=== PATIENT | female | born 1990 | race Caucasian/White ===

== ENCOUNTER 2018-03-14 18:58 | Emergency (ER) | payer OTHER, MEDICAID, SELFPAY ==
[2018-03-14 19:02] VITALS: BP 125/78; PULSE 77; RESP 16; TEMP 36.2; O2SAT 98
[2018-03-14 19:32] VITALS: BP 150/107; PULSE 77; RESP 17; O2SAT 100
--- NOTE | 2018-03-14 19:49 | DI.RAD.S_ITS ---
PROCEDURE: XR TIBIA FIBULA RT 2V INDICATIONS: Pain to left lower extremity after colliding with dog TECHNIQUE: 2 views of the tibia and fibula were acquired. COMPARISON: None. FINDINGS: Bones: No fractures or dislocations. No suspicious bony lesions. Soft tissues: No suspicious soft tissue calcifications or masses. IMPRESSION: No fracture identified Dictated by: Seng Khan M.D. on 03/14/2018 at 20:49 Approved by: Seng Khan M.D. on 03/14/2018 at 20:50
--- NOTE | 2018-03-14 20:18 | ED.LOWEXIN ---
HPI - Extremity Injury (Lower) <YOLY Austin - Last Filed: 03/14/18 22:22> General Chief Complaint: Extremity Injury, Lower Stated Complaint: LEFT LEG INJURY Time Seen by Provider: 03/14/18 19:14 Source: patient Mode of arrival: ambulatory Limitations: no limitations History of Present Illness HPI Narrative: 27-year-old female history of hypothyroidism and is a non smoker here for complaint of pain into her left calf and left lateral tib-fib area after a dog collided into her leg earlier today. She states that she was taking care of her brother's dog when she let him outside and he rash doubt hitting her in the leg. She denies any head injury. She denies any loss of consciousness. Increased pain with ambulation and weight-bearing. No swelling no deformities. No other concerns or complaints. Related Data Previous Rx's Medication Instructions Recorded kwmazrtpkr-coufxrrnontzp-ojew 0 tab PO Q4HP PRN #20 tab 06/24/17 Allergies Allergy/AdvReac Type Severity Reaction Status Date / Time No Known Drug Allergies Allergy Verified 03/14/18 19:02 Review of Systems <YOLY Austin - Last Filed: 03/14/18 22:22> Constitutional Denies chills, Denies fever(s), Denies lethargy and Denies weakness Eyes Denies change in vision, Denies eye discharge, Denies irritation and Denies loss of vision ENT Ears, Nose, Mouth, and Throat: Denies change in voice, Denies neck pain and Denies sore throat Cardiovascular Denies chest pain, Denies irregular heart rhythm, Denies lightheadedness, Denies palpitations, Denies dyspnea, Denies dyspnea on exertion and Denies orthopnea Respiratory Denies cough, Denies dyspnea, Denies dyspnea on exertion and Denies wheezing Gastrointestinal Gastrointestinal: Denies abdominal pain, Denies change in bowel habits, Denies diarrhea, Denies nausea and Denies vomiting Genitourinary Denies hematuria, Denies flank pain, Denies urinary incontinence and Denies urinary urgency Musculoskeletal Denies neck pain Integumentary/Breasts Denies pruritus, Denies erythema, Denies rash and Denies wounds Neurologic Denies confusion, Denies loss of vision and Denies weakness Psychiatric Denies anxiety, Denies confusion, Denies depression, Denies homicidal ideation and Denies suicidal ideation Endocrine Denies palpitations Hematologic/Lymphatic Denies easy bruising Allergic/Immunologic Denies wheezing Exam <YOLY Austin - Last Filed: 03/14/18 22:22> Initial Vital Signs Initial Vital Signs: Vital Signs Temperature 97.2 F L 03/14/18 19:02 Pulse Rate 77 03/14/18 19:02 Respiratory Rate 16 03/14/18 19:02 Blood Pressure 125/78 03/14/18 19:02 Pulse Oximetry 98 03/14/18 19:02 Const General: cooperative and well developed Nutritional Appearance: well nourished Orientation: alert, awake, oriented x3 and not confused HENOH Mouth: oral mucosae normal and moist mucous membranes Eyes Conjunctivae: conjunctivae normal Sclera: sclerae normal Pupils: PERRL EOM: EOM intact bilaterally Resp Effort & Inspection: normal respiratory effort, able to speak in complete sentences, no respiratory distress and no use of accessory muscles Auscultation: clear to auscultation bilaterally, no rales, no rhonchi and no wheezes Cardio Rate: regular rate Rhythm: regular rhythm Heart Sounds: no click, no gallops, no murmurs and no rubs Pulses: normal peripheral pulses Skin General: no rashes or lesions noted, No jaundice and No petechiae Neuro General: alert, oriented x3, gait normal and no focal motor deficits Speech: speech normal Extrem Other: Left lower extremity with no signs of trauma. No swelling no ecchymosis. No deformities. Distal sensation is intact. Distal pulses are intact. Distal range of motion is intact. <Shelley Calvin DO - Last Filed: 03/15/18 04:21> Initial Vital Signs Initial Vital Signs: Vital Signs Temperature 97.2 F L 03/14/18 19:02 Pulse Rate 77 03/14/18 19:02 Respiratory Rate 16 03/14/18 19:02 Blood Pressure 125/78 03/14/18 19:02 Pulse Oximetry 98 03/14/18 19:02 Course <YOLY Austin - Last Filed: 03/14/18 22:22> Orders Ordered: ED Orders 03/14/18 19:49 XR tibia fibula LT 2V Stat Discontinued Medications Ketorolac Tromethamine (Toradol) 60 mg IM NOW ONE Stop: 03/14/18 21:24 Last Admin: 03/14/18 21:34 Dose: 60 mg Vital Signs - 8 hr 03/14/18 21:39 Pulse Rate 72 Blood Pressure [Right Arm] 138/85 Pulse Oximetry 100 <Shelley Calvin DO - Last Filed: 03/15/18 04:21> Orders Ordered: ED Orders 03/14/18 19:49 XR tibia fibula LT 2V Stat Discontinued Medications Ketorolac Tromethamine (Toradol) 60 mg IM NOW ONE Stop: 03/14/18 21:24 Last Admin: 03/14/18 21:34 Dose: 60 mg Vital Signs - 8 hr 03/14/18 21:39 Pulse Rate 72 Blood Pressure [Right Arm] 138/85 Pulse Oximetry 100 MDM - Extremity Injury (Lower) <YOLY Austin - Last Filed: 03/14/18 22:22> Imaging Data left tib fib: Radiologist's impression: [address] [address] XRay Report Signed Patient: Haley Hassan [facility]#: [id number] : 1990Acct:[id number] Age/Sex: 27 / FDate of Service: 03/14/18 Loc: ED Accession Number: [id number] Procedure: XR tibia fibula LT 2V Ordering Provider: Silvio Torres PROCEDURE: XR TIBIA FIBULA RT 2V INDICATIONS: Pain to left lower extremity after colliding with dog TECHNIQUE: 2 views of the tibia and fibula were acquired. COMPARISON: None. FINDINGS: Bones: No fractures or dislocations. No suspicious bony lesions. Soft tissues: No suspicious soft tissue calcifications or masses. IMPRESSION: No fracture identified Dictated by: Seng Khan M.D. on 03/14/2018 at 20:49 Approved by: Seng Khan M.D. on 03/14/2018 at 20:50 [facility] Narrative Medical decision making narrative: X-ray of the left tib-fib area was obtained was negative for any acute findings or fractures. Signs symptoms presents as contusion to the left lower extremity. Gayn-wyy-somcsms Tylenol or Motrin as needed for any discomfort. Follow up with primary care provider next week for re-evaluation. Rest area. For any worsening symptoms return to the emergency room. Discharge Plan Departure Patient Disposition: Home Clinical Impression: Contusion of left leg Discharge Date/Time: 03/14/18 21:54 Interventions: ED Discharge Assessment Last Done: 03/14/18 21:52 Instructions: DI for Contusion Activity Restrictions/Additional Instructions: X-ray of the left lower leg was negative for any fractures. Signs and symptoms does has a bruise to the leg. Use bvli-dmt-uoucusr Tylenol or Motrin as needed for any discomfort. Rest area. Follow up with primary care provider next week. For any worsening symptoms return to the emergency room. Prescriptions: No Action aozaxuwcye-eqgjhpflbhowl-tirv 1 EACH tablet PO Q4HP PRNQty: 20 RF: 0 Referrals: [facility] [Provider Group] <Shelley Calvin DO - Last Filed: 03/15/18 04:21> Cosign ED Attending Latoya Attestation: I was immediately available in the department for consultation. Documentation has been reviewed. I agree with assessment and plan.
--- NOTE | 2018-03-14 20:22 | ED_ITS ---
HPI - Extremity Injury (Lower) <YOLY Austin - Last Filed: 03/14/18 22:22> General Chief Complaint: Extremity Injury, Lower Stated Complaint: LEFT LEG INJURY Time Seen by Provider: 03/14/18 19:14 Source: patient Mode of arrival: ambulatory Limitations: no limitations History of Present Illness HPI Narrative: 27-year-old female history of hypothyroidism and is a non smoker here for complaint of pain into her left calf and left lateral tib-fib area after a dog collided into her leg earlier today. She states that she was taking care of her brother's dog when she let him outside and he rash doubt hitting her in the leg. She denies any head injury. She denies any loss of consciousness. Increased pain with ambulation and weight-bearing. No swelling no deformities. No other concerns or complaints. Related Data Previous Rx's Medication Instructions Recorded jsfbqanpft-ucwcmurfgeubn-fuot 0 tab PO Q4HP PRN #20 tab 06/24/17 Allergies Allergy/AdvReac Type Severity Reaction Status Date / Time No Known Drug Allergies Allergy Verified 03/14/18 19:02 Review of Systems <YOLY Austin - Last Filed: 03/14/18 22:22> Constitutional Denies chills, Denies fever(s), Denies lethargy and Denies weakness Eyes Denies change in vision, Denies eye discharge, Denies irritation and Denies loss of vision ENT Ears, Nose, Mouth, and Throat: Denies change in voice, Denies neck pain and Denies sore throat Cardiovascular Denies chest pain, Denies irregular heart rhythm, Denies lightheadedness, Denies palpitations, Denies dyspnea, Denies dyspnea on exertion and Denies orthopnea Respiratory Denies cough, Denies dyspnea, Denies dyspnea on exertion and Denies wheezing Gastrointestinal Gastrointestinal: Denies abdominal pain, Denies change in bowel habits, Denies diarrhea, Denies nausea and Denies vomiting Genitourinary Denies hematuria, Denies flank pain, Denies urinary incontinence and Denies urinary urgency Musculoskeletal Denies neck pain Integumentary/Breasts Denies pruritus, Denies erythema, Denies rash and Denies wounds Neurologic Denies confusion, Denies loss of vision and Denies weakness Psychiatric Denies anxiety, Denies confusion, Denies depression, Denies homicidal ideation and Denies suicidal ideation Endocrine Denies palpitations Hematologic/Lymphatic Denies easy bruising Allergic/Immunologic Denies wheezing Exam <YOLY Austin - Last Filed: 03/14/18 22:22> Initial Vital Signs Initial Vital Signs: Vital Signs Temperature 97.2 F L 03/14/18 19:02 Pulse Rate 77 03/14/18 19:02 Respiratory Rate 16 03/14/18 19:02 Blood Pressure 125/78 03/14/18 19:02 Pulse Oximetry 98 03/14/18 19:02 Const General: cooperative and well developed Nutritional Appearance: well nourished Orientation: alert, awake, oriented x3 and not confused HENIN Mouth: oral mucosae normal and moist mucous membranes Eyes Conjunctivae: conjunctivae normal Sclera: sclerae normal Pupils: PERRL EOM: EOM intact bilaterally Resp Effort & Inspection: normal respiratory effort, able to speak in complete sentences, no respiratory distress and no use of accessory muscles Auscultation: clear to auscultation bilaterally, no rales, no rhonchi and no wheezes Cardio Rate: regular rate Rhythm: regular rhythm Heart Sounds: no click, no gallops, no murmurs and no rubs Pulses: normal peripheral pulses Skin General: no rashes or lesions noted, No jaundice and No petechiae Neuro General: alert, oriented x3, gait normal and no focal motor deficits Speech: speech normal Extrem Other: Left lower extremity with no signs of trauma. No swelling no ecchymosis. No deformities. Distal sensation is intact. Distal pulses are intact. Distal range of motion is intact. <Shelley Calvin DO - Last Filed: 03/15/18 04:21> Initial Vital Signs Initial Vital Signs: Vital Signs Temperature 97.2 F L 03/14/18 19:02 Pulse Rate 77 03/14/18 19:02 Respiratory Rate 16 03/14/18 19:02 Blood Pressure 125/78 03/14/18 19:02 Pulse Oximetry 98 03/14/18 19:02 Course <YOLY Austin - Last Filed: 03/14/18 22:22> Orders Ordered: ED Orders 03/14/18 19:49 XR tibia fibula LT 2V Stat Discontinued Medications Ketorolac Tromethamine (Toradol) 60 mg IM NOW ONE Stop: 03/14/18 21:24 Last Admin: 03/14/18 21:34 Dose: 60 mg Vital Signs - 8 hr 03/14/18 21:39 Pulse Rate 72 Blood Pressure [Right Arm] 138/85 Pulse Oximetry 100 <Shelley Calvin DO - Last Filed: 03/15/18 04:21> Orders Ordered: ED Orders 03/14/18 19:49 XR tibia fibula LT 2V Stat Discontinued Medications Ketorolac Tromethamine (Toradol) 60 mg IM NOW ONE Stop: 03/14/18 21:24 Last Admin: 03/14/18 21:34 Dose: 60 mg Vital Signs - 8 hr 03/14/18 21:39 Pulse Rate 72 Blood Pressure [Right Arm] 138/85 Pulse Oximetry 100 MDM - Extremity Injury (Lower) <YOLY Austin - Last Filed: 03/14/18 22:22> Imaging Data left tib fib: Radiologist's impression: [address] [address] XRay Report Signed Patient: Haley Hassan [facility]#: [id number] : 1990Acct:[id number] Age/Sex: 27 / FDate of Service: 03/14/18 Loc: ED Accession Number: [id number] Procedure: XR tibia fibula LT 2V Ordering Provider: Silvio Torres PROCEDURE: XR TIBIA FIBULA RT 2V INDICATIONS: Pain to left lower extremity after colliding with dog TECHNIQUE: 2 views of the tibia and fibula were acquired. COMPARISON: None. FINDINGS: Bones: No fractures or dislocations. No suspicious bony lesions. Soft tissues: No suspicious soft tissue calcifications or masses. IMPRESSION: No fracture identified Dictated by: Seng Khan M.D. on 03/14/2018 at 20:49 Approved by: Seng Khan M.D. on 03/14/2018 at 20:50 [facility] Narrative Medical decision making narrative: X-ray of the left tib-fib area was obtained was negative for any acute findings or fractures. Signs symptoms presents as contusion to the left lower extremity. Repx-bdj-crpkcsw Tylenol or Motrin as needed for any discomfort. Follow up with primary care provider next week for re-evaluation. Rest area. For any worsening symptoms return to the emergency room. Discharge Plan Departure Patient Disposition: Home Clinical Impression: Contusion of left leg Discharge Date/Time: 03/14/18 21:54 Interventions: ED Discharge Assessment Last Done: 03/14/18 21:52 Instructions: DI for Contusion Activity Restrictions/Additional Instructions: X-ray of the left lower leg was negative for any fractures. Signs and symptoms does has a bruise to the leg. Use rdhq-has-dllmebo Tylenol or Motrin as needed for any discomfort. Rest area. Follow up with primary care provider next week. For any worsening symptoms return to the emergency room. Prescriptions: No Action ahwwyqxkbh-vwngphyoqmubl-iyyg 1 EACH tablet PO Q4HP PRNQty: 20 RF: 0 Referrals: [facility] [Provider Group] <Shelley Calvin DO - Last Filed: 03/15/18 04:21> Cosign ED Attending Latoya Attestation: I was immediately available in the department for consultation. Documentation has been reviewed. I agree with assessment and plan.
[2018-03-14] MEDS: KETOROLAC 60 MG/2 ML VIAL IM (21:34)
[2018-03-14 21:39] VITALS: BP 138/85; PULSE 72; O2SAT 100
== END 2018-03-14 21:54 | disposition home or self-care (01) ==
PROVIDERS: Emergency Provider Nurse Practitioner Family
DX: S80.12XA Contusion of left lower leg, initial encounter (principal); W54.1XXA Struck by dog, initial encounter
CPT/HCPCS: 73590; 96372; 99282; 99283; J1885

== ENCOUNTER → 2018-12-04 18:59 | Outpatient (CLI) | payer OTHER, MEDICAID, SELFPAY | PROVIDERS: Visit Provider Physician Assistant | DX: J02.9 Acute pharyngitis, unspecified (principal) | CPT/HCPCS: 87070 ==

== ENCOUNTER 2019-04-03 17:08 | Emergency (ER) | payer OTHER, MEDICAID, SELFPAY ==
[2019-04-03 17:24] VITALS: BP 126/87; PULSE 80; RESP 16; TEMP 36.4; O2SAT 98; BMI 32.5
[2019-04-03 17:56] LABS: Appearance Urine UA CLEAR; Bilirubin Urine UA NEGATIVE (NEGATIVE); Color Urine UA YELLOW; Glucose Urine UA NEGATIVE (Negative); Ketones Urine UA NEGATIVE (NEGATIVE); Leukocyte Esterase Urine UA NEGATIVE (NEGATIVE); Nitrite Urine UA NEGATIVE (Negative); Occult Blood Urine UA 3+ (Negative); Protein Urine UA NEGATIVE (Negative); Urobilinogen Urine UA 0.2 E.U./dL (0.2)
[2019-04-03 17:57] LABS: pH Urine UA 6.5 (4.5-8.0)
[2019-04-03 18:00] LABS: Pregnancy Test Urine Negative (Negative)
[2019-04-03 18:10] LABS: Bacteria Urine Moderate (10-30); Culture Indicated Urine Cult Not Indicated; RBC Urine 1-5/HPF (0-5/HPF); Squamous Epithelial Cell Urine 5-10 /HPF (0-5/HPF); WBC Urine 0-1/HPF (0-5/HPF)
--- NOTE | 2019-04-03 18:12 | ED_ITS ---
HPI - Back Pain/Injury <Jeana Rao PA-C - Last Filed: 04/03/19 20:35> General Chief Complaint: Back Pain/Injury Stated Complaint: NAUSEA, DIZZY S/P FALL Time Seen by Provider: 04/03/19 18:10 Source: patient Mode of arrival: Ambulatory Limitations: no limitations History of Present Illness HPI Narrative: This 28-year-old female comes to ED secondary to thoracic and lumbar pain after a fall yesterday. She states that she slipped in some water and her leg went out from under her. She hit her back on the edge of a tall metal tub, thinks she hit her low back 1st and then slid down. She states that she got up right away, noted this was painful but does not think she hit her neck or head or passed out, does not think she had any other injury. She states later in the evening this started to hurt quite a bit more. She took ibuprofen. She states she has continued to have pain in also notices muscle spasms throughout the day. She took 1 ibuprofen earlier but has not taken any additional medication. She states she also notes some frontal headache, denies vision change. She states she has some nausea which she thinks is related to pain, denies any vision change. She states she notices some pulsation in her left ear, no pain. She states she has no pain in her neck. She denies any new weakness or paresthesia in her extremities. Denies any bowel or bladder dysfunction. She does do lifting and bending at work and does request a note for work. She states that earlier today she was driving and her brother noticed that she was driving very slowly, then she realized she forgot where she was going. She states that she felt somewhat foggy but has not noted any difficulty with speech or coordination or other episodes of this today. Related Data Home Medications Medication Instructions Recorded Confirmed albuterol sulfate [ProAir HFA] 2 puff INHALATION Q4H PRN 04/03/19 04/03/19 alprazolam 1 tab PO PRN PRN 04/03/19 04/03/19 diphenhydramine HCl [Sleep Aid 25 mg PO PRN PRN 04/03/19 04/03/19 (diphenhydramine)] Previous Rx's Medication Instructions Recorded cyclobenzaprine 10 mg PO Q8H #10 tab 04/03/19 ibuprofen 800 mg PO Q8H PRN #15 tab 04/03/19 lidocaine [Lidoderm] 2 patch TOP Q24H #30 each 04/03/19 Allergies Allergy/AdvReac Type Severity Reaction Status Date / Time No Known Drug Allergies Allergy Verified 03/28/19 17:13 Review of Systems <Jeana Rao PA-C - Last Filed: 04/03/19 20:35> Review of Systems ROS Unobtainable: All systems reviewed & are unremarkable except as noted in HPI and below Patient History <Jeana Rao PA-C - Last Filed: 04/03/19 20:35> Medical History (Updated 04/03/19 @ 19:27 by Jeana Rao PA-C) Anxiety (11/16/15) Depression (11/16/15) Hypothyroid (Chronic) Whiplash injuries (Chronic) Surgical History (Updated 04/03/19 @ 18:38 by Jeana Rao PA-C) No history of previous surgery (Chronic) Social History Smoking Status: Never smoker alcohol intake frequency: holidays/special occasions only Substance Use Type: does not use Exam <Jeana Rao PA-C - Last Filed: 04/03/19 20:35> Narrative Exam Narrative: GENERAL APPEARANCE: Patient sitting comfortably, in no distress. HEENT: PERRL, EOMI, normal TMs and oropharynx NECK: Supple LUNGS: Clear to auscultation bilaterally. HEART: Rate and rhythm regular without murmur, normal S1 and S2, no S3 or S4. NEUROLOGIC: Alert and oriented, speech is slightly slow but otherwise normal, normal coordination. Sensation grossly intact to the extremities MUSCULOSKELETAL: Full Csp AROM, no tenderness over the cervical spine or paraspinal musculature. Full range of motion of the upper extremities. No point tenderness over the thoracolumbar spine, moderate tenderness over the left paraspinal midthoracic musculature and mid to inferior lumbar musculature. Normal seated trunk flexion. Limited rotation and lateral bend secondary to tenderness. Lower extremity strength 5/5 bilateral hip flexors, knee extensors, foot plantar flexion. DERMATOLOGIC: No ecchymoses or abrasions Initial Vital Signs Initial Vital Signs: Vital Signs Temperature 97.6 F 04/03/19 17:24 Pulse Rate 80 04/03/19 17:24 Respiratory Rate 16 04/03/19 17:24 Blood Pressure 126/87 04/03/19 17:24 Pulse Oximetry 98 04/03/19 17:24 <Moy Angeles DO - Last Filed: 04/04/19 02:39> Initial Vital Signs Initial Vital Signs: Vital Signs Temperature 97.6 F 04/03/19 17:24 Pulse Rate 80 04/03/19 17:24 Respiratory Rate 16 04/03/19 17:24 Blood Pressure 126/87 04/03/19 17:24 Pulse Oximetry 98 04/03/19 17:24 Course <CHRISTO Garvey Last Filed: 04/03/19 20:35> Orders Ordered: ED Orders 04/03/19 18:29 CT head/brain wo con Stat XR lumbar spine 2-3V Stat XR thoracic spine 3V Stat Vital Signs Vital signs: Vital Signs - 8 hr 04/03/19 17:24 Temperature 97.6 F Pulse Rate 80 Respiratory Rate 16 Blood Pressure 126/87 Pulse Oximetry 98 <Moy Angeles DO - Last Filed: 04/04/19 02:39> Orders Ordered: ED Orders 04/03/19 18:29 CT head/brain wo con Stat XR lumbar spine 2-3V Stat XR thoracic spine 3V Stat Vital Signs Vital signs: Vital Signs - 8 hr 04/03/19 17:24 Temperature 97.6 F Pulse Rate 80 Respiratory Rate 16 Blood Pressure 126/87 Pulse Oximetry 98 MDM - Back Pain/Injury <CHRISTO Garvey Last Filed: 04/03/19 20:35> Lab Data Labs: Lab Results 04/03/19 04/03/19 Range/Units 17:22 17:22 Urine Color Yellow Urine Appearance Clear Urine pH 6.5 (4.5-8.0) Ur Specific [place] 1.010 (1.000-1.035) Urine Protein Negative (Negative) Urine Glucose (UA) Negative (Negative) g/dL Urine Ketones Negative (NEGATIVE) Urine Occult Blood 3+ H (Negative) Urine Nitrate Negative (Negative) Urine Bilirubin Negative (NEGATIVE) Urine Urobilinogen 0.2 (0.2) E.U./dL Ur Leukocyte Esterase Negative (NEGATIVE) Urine RBC 1-5/hpf (0-5/HPF) Urine WBC 0-1/hpf (0-5/HPF) Ur Squamous Epith Cells 5-10 /hpf H (0-5/HPF) Urine Bacteria Moderate (10-30) H (None) Ur Culture Indicated? Cult not indicated Urine Test Negative (Negative) <Moy Angeles - Last Filed: 04/04/19 02:39> Lab Data Labs: Lab Results 04/03/19 04/03/19 Range/Units 17:22 17:22 Urine Color Yellow Urine Appearance Clear Urine pH 6.5 (4.5-8.0) Ur Specific [place] 1.010 (1.000-1.035) Urine Protein Negative (Negative) Urine Glucose (UA) Negative (Negative) g/dL Urine Ketones Negative (NEGATIVE) Urine Occult Blood 3+ H (Negative) Urine Nitrate Negative (Negative) Urine Bilirubin Negative (NEGATIVE) Urine Urobilinogen 0.2 (0.2) E.U./dL Ur Leukocyte Esterase Negative (NEGATIVE) Urine RBC 1-5/hpf (0-5/HPF) Urine WBC 0-1/hpf (0-5/HPF) Ur Squamous Epith Cells 5-10 /hpf H (0-5/HPF) Urine Bacteria Moderate (10-30) H (None) Ur Culture Indicated? Cult not indicated Urine Test Negative (Negative) Discharge Plan Departure Patient Disposition: Home Clinical Impression: Muscle spasm Contusion of mid back Qualifiers: Encounter type: initial encounter Laterality: unspecified laterality Qualified Code(s): S20.229A - Contusion of unspecified back wall of thorax, initial encounter Contusion of lower back Qualifiers: Encounter type: initial encounter Qualified Code(s): S30.0XXA - Contusion of lower back and pelvis, initial encounter Headache Qualifiers: Headache type: unspecified Headache chronicity pattern: acute headache Intractability: not intractable Qualified Code(s): R51 - Headache Discharge Date/Time: 04/03/19 19:40 Instructions: DI for Concussion, DI for Low Back Pain, DI for Back Spasm Activity Restrictions/Additional Instructions: I have sent prescriptions for ibuprofen as well as a muscle relaxant and pain patches to [facility]'s here in town for you. Please pick them up and start tonight as this may help you sleep more comfortably. Gentle walking and stretching are okay. Please remain off of work tomorrow so that you can avoid twisting and lifting. It does not sound like you hit your head from what you remember but it is hard to tell for sure whether you may have had a mild concussion as well. No acute problems were found on your imaging studies today but due to this I did give you instructions for concussion. Please call your PCP office 1st thing in the morning and let them know you were seen in the ED today. I would like you to follow up there in the next few days to reassess and determine whether further treatment or studies are needed. As we talked about, you should return to the ED right away if you have any acutely worsening symptoms in the interim or new symptoms such as vision change or vomiting. Prescriptions: New ibuprofen 800 mg tablet 800 mg PO Q8H PRN (Reason: pain) Qty: 15 RF: 0 cyclobenzaprine 10 mg tablet 10 mg PO Q8H Qty: 10 RF: 0 lidocaine [Lidoderm] 5 % adhesive patch,medicated 2 patch TOP Q24H Qty: 30 RF: 0 No Action diphenhydramine HCl [Sleep Aid (diphenhydramine)] 25 mg Capsule 25 mg PO PRN PRN (Reason: Insomnia) RF: 0 albuterol sulfate [ProAir HFA] 90 mcg/actuation HFA aerosol inhaler 2 puff INHALATION Q4H PRN (Reason: Shortness Of Breath Or Wheezing) RF: 0 alprazolam 1 tab PO PRN PRN (Reason: Anxiety) RF: 0 Referrals: [facility] [Provider Group] Stand Alone Forms: Work Release Note <Moy Angeles, - Last Filed: 04/04/19 02:39> Sign Out Provider Sign Out Attestation: I did not see this patient, but I was immediately available in the department for consultation. Documentation has been reviewed. I agree with assessment and plan.
--- NOTE | 2019-04-03 18:29 | DI.RAD.S_ITS ---
PROCEDURE: XR THORACIC SPINE 3V INDICATIONS: contusion, back pain TECHNIQUE: 3 views of the thoracic spine were acquired. COMPARISON: None. FINDINGS: Bones: No fractures or dislocations. No suspicious bony lesions. 12 pairs of ribs are noted, and appear intact where visualized. Soft tissues: No paravertebral stripe thickening. IMPRESSION: No fracture. No acute osseous lesion. If symptoms and/or clinical suspicion for pathology persists, evaluation with MRI may be helpful for further assessment. Dictated by: Dilma Hairston MD, PhD on 04/03/2019 at 19:07 Approved by: Dilma Hairston MD, PhD on 04/03/2019 at 19:07
--- NOTE | 2019-04-03 18:29 | DI.CT.S_ITS ---
PROCEDURE: CT HEAD/BRAIN WO CON INDICATIONS: fall, possible confusion TECHNIQUE: Noncontrast 4.5 mm thick angled axial sections acquired from the foramen magnum to the vertex, with coronal and sagittal reformats. For radiation dose reduction, the following was used: automated exposure control, adjustment of mA and/or kV according to patient size. COMPARISON: None. FINDINGS: Image quality: Excellent. CSF spaces: Basal cisterns are patent. No extra-axial fluid collections. Ventricles are normal in size and shape. Brain: No midline shift. No intracranial masses or hemorrhage. Renee-white matter interface is normal. Skull and face: Calvarium and visualized facial bones are intact, without suspicious lesions. Sinuses: Visualized sinuses and mastoids are clear. IMPRESSION: No acute intracranial disease process. Dictated by: Dilma Hairston MD, PhD on 04/03/2019 at 18:51 Approved by: Dilma Hairston MD, PhD on 04/03/2019 at 18:53
--- NOTE | 2019-04-03 18:29 | DI.RAD.S_ITS ---
PROCEDURE: XR LUMBAR SPINE 2-3V INDICATIONS: contusion, back pain TECHNIQUE: 3 views of the lumbar spine were acquired. COMPARISON: None. FINDINGS: Bones: 5 [id number] vertebrae are present. There is normal bony alignment. No vertebral body compression fractures. No suspicious bony lesions. Soft tissues: Overlying bowel gas pattern is normal. No suspicious soft tissue calcifications. IMPRESSION: No fracture. No acute osseous lesion. If symptoms and/or clinical suspicion for pathology persists, evaluation with MRI may be helpful for further assessment. Dictated by: Dilma Hairston MD, PhD on 04/03/2019 at 19:06 Approved by: Dilma Hairston MD, PhD on 04/03/2019 at 19:07
== END 2019-04-03 19:40 | disposition home or self-care (01) ==
PROVIDERS: Emergency Medicine; Emergency Provider Internal Medicine
DX: M62.830 Muscle spasm of back (principal); S20.229A Contusion of unspecified back wall of thorax, initial encounter; S30.0XXA Contusion of lower back and pelvis, initial encounter; R51 Headache; W01.190A Fall on same level from slipping, tripping and stumbling with subsequent striking against furniture, initial encounter
CPT/HCPCS: 70450; 72072; 72100; 81001; 81025; 99282; 99284

== ENCOUNTER → 2020-03-12 09:55 | Outpatient (CLI) | payer OTHER, MEDICAID, SELFPAY ==
[2020-03-12 11:21] LABS: Hemoglobin A1C% w Est Avg Glu 5.4 % (4.0-6.0)
[2020-03-12 11:22] LABS: Add Manual Diff / Slide Review NO; Basophils Absolute Auto 100 /uL (0-100); Basophils Percent Auto 0.9 % (0-2); Eosinophils Absolute Auto 100 /uL (0-450); Eosinophils Percent Auto 1.2 % (2-4); Hematocrit 40.6 % (36-46); Hemoglobin 13.6 g/dL (12.0-16.0); Lymphocytes Absolute Auto 2100 /uL (1100-4500); Lymphocytes Percent Auto 22.6 % (25-40); Mean Corpuscular HGB Conc 33.5 % (30-36); Mean Corpuscular Hemoglobin 29.8 PG (26-34); Monocytes Absolute Auto 800 /uL (0-900); Monocytes Percent Auto 8.6 % (3-14); Neutrophils Absolute Auto 6100 /uL (1500-7000); Neutrophils Percent Auto 66.7 % (50-75); Platelet Count 198 X10^3/uL (150-400); Red Blood Cell Count 4.56 X10^6/uL (4.0-5.2); Red Cell Distribution Width 12.8 % (11.6-14.8); White Blood Cell Count 9.1 X10^3/uL (4.5-11.0)
[2020-03-12 11:41] LABS: Alanine Aminotransferase 32 IU/L (<35); Albumin 4.6 g/dL (3.5-5.0); Albumin Globulin Ratio 1.2 (1.0-2.8); Alkaline Phosphatase 96 U/L (38-126); Aspartate Aminotransferase 26 IU/L (14-36); BUN Creatinine Ratio 21.1 (6-22); Bilirubin Total 0.3 mg/dL (0.2-1.3); Blood Urea Nitrogen 15 mg/dL (7-17); Calcium 9.6 mg/dL (8.4-10.2); Carbon Dioxide 30 mmol/L (22-32); Chloride 103 mmol/L (98-107); Cholesterol 228 mg/dL (140-199); Estimated Glomerular Filt Rate > 60.0 mL/min (>60); Globulin 3.7 g/dL (1.7-4.1); Glucose 95 mg/dL (70-100); HDL Cholesterol 40 mg/dL (40-60); HEMOLYSIS < 15 (0-50); LDL Cholesterol Calculated 168 mg/dL (<100); Potassium 4.2 mmol/L (3.4-5.1); Sodium 138 mmol/L (137-145); Total Protein 8.3 g/dL (6.3-8.2); Triglycerides 101 mg/dL (35-150)
[2020-03-12 11:57] LABS: Free T4, Direct Thyroxine 0.67 ng/dL (0.78-2.19)
[2020-03-12 12:11] LABS: Thyroid Stimulating Hormone 5.04 uIU/mL (0.47-4.68)
== END ==
PROVIDERS: PCP Family Medicine; Referring Provider Family Medicine; Visit Provider Family Medicine
DX: E03.9 Hypothyroidism, unspecified (principal)
CPT/HCPCS: 36415; 80053; 80061; 83036; 84439; 84443; 85025

== ENCOUNTER → 2020-04-29 08:55 | Outpatient (CLI) | payer OTHER, MEDICAID, SELFPAY ==
--- NOTE | 2020-04-29 08:56 | DI.US.S_ITS ---
PROCEDURE: US OB <= 14 WEEKS FETUS INDICATIONS: DATES OUTSIDE/PRIOR DATING DATA: Last menstrual period (LMP): Unknown. LMP-based estimated date of delivery (GHASSAN): Unknown. First dating scan (date and location): 04/29/2020, [facility] Estimated date of delivery (GHASSAN) from first dating scan: 11/29/2020. TECHNIQUE: Real-time scanning was performed of the fetus and maternal pelvic organs, with image documentation. Endovaginal scanning was also performed to better visualize the fetus and maternal ovaries. COMPARISON: None. FINDINGS: Embryo: A single live intrauterine is seen. The measured heart rate is 171 beats per minute. The crown-rump length measures 2.7 cm, corresponding to an estimated gestational age of 9 weeks 3 days. It is too early for detailed anatomic assessment. By visual inspection, the amount of amniotic fluid is within normal limits. No significant findings of subchorionic/perigestational hemorrhage are seen. Measurement variability in dating: +/- 4 weeks by LMP, +/- 7 days by mean sac diameter (use before 6 weeks gestation if crown-rump length not able to be measured), +/- 5 days by crown-rump length (up to 8 weeks 6 days gestation), +/- 7 days by crown-rump length (up to 13 weeks 6 days gestation). Maternal organs: Ovaries are unremarkable, with a right-sided corpus luteum seen. Limited images through the kidneys demonstrate no hydronephrosis. IMPRESSION: A single live intrauterine is seen. No karolyn abnormality is seen. The estimated gestational age based upon these images is 9 weeks 3 days, with an ultrasound estimated date of delivery of 11/29/2020. Dictated by: Clay Weems M.D. on 04/29/2020 at 9:26 Approved by: Clay Weems M.D. on 04/29/2020 at 9:27
== END ==
PROVIDERS: PCP Family Medicine; Referring Provider Family Medicine; Visit Provider Family Medicine
DX: Z34.01 Encounter for supervision of normal first pregnancy, first trimester (principal); Z3A.09 9 weeks gestation of pregnancy
CPT/HCPCS: 76801; 76817

== ENCOUNTER → 2020-05-06 14:36 | Outpatient (CLI) | payer OTHER, MEDICAID, SELFPAY ==
[2020-05-06 15:00] LABS: Add Manual Diff / Slide Review NO; Basophils Absolute Auto 100 /uL (0-100); Basophils Percent Auto 0.4 % (0-2); Eosinophils Absolute Auto 100 /uL (0-450); Hematocrit 40.3 % (36-46); Hemoglobin 13.8 g/dL (12.0-16.0); Lymphocytes Absolute Auto 1900 /uL (1100-4500); Lymphocytes Percent Auto 14.5 % (25-40); Mean Corpuscular HGB Conc 34.2 % (30-36); Mean Corpuscular Hemoglobin 30.5 PG (26-34); Mean Corpuscular Volume 89.3 fL (80-100); Monocytes Absolute Auto 1000 /uL (0-900); Monocytes Percent Auto 7.7 % (3-14); Neutrophils Absolute Auto 10200 /uL (1500-7000); Neutrophils Percent Auto 76.4 % (50-75); Platelet Count 229 X10^3/uL (150-400); Red Blood Cell Count 4.51 X10^6/uL (4.0-5.2); Red Cell Distribution Width 13.5 % (11.6-14.8); White Blood Cell Count 13.4 X10^3/uL (4.5-11.0)
[2020-05-06 15:04] LABS: Appearance Urine UA CLEAR; Bilirubin Urine UA NEGATIVE (NEGATIVE); Color Urine UA YELLOW; Glucose Urine UA NEGATIVE (Negative); Ketones Urine UA NEGATIVE (NEGATIVE); Leukocyte Esterase Urine UA NEGATIVE (NEGATIVE); Nitrite Urine UA NEGATIVE (Negative); Occult Blood Urine UA 3+ (Negative); Protein Urine UA NEGATIVE (Negative); Specific Gravity Urine UA >=1.030 (1.000-1.035); Urobilinogen Urine UA 0.2 E.U./dL (0.2)
[2020-05-06 15:35] LABS: Bacteria Urine None Seen; WBC Urine None Seen (0-5/HPF)
[2020-05-06 15:36] LABS: Culture Indicated Urine Cult Not Indicated; RBC Urine 1-5/HPF (0-5/HPF)
[2020-05-06 16:03] LABS: TSH w/ Reflex to FT4 2.62 uIU/mL (0.47-4.68)
[2020-05-06 16:36] LABS: Hepatitis B Surface Antigen NEGATIVE s/c (NEGATIVE); Rubella Antibody IgG 73.9 IU/mL (>15)
[2020-05-06 16:59] LABS: HIV 1 & 2 Ab/Ag 4th Gen Combo NEGATIVE (NEGATIVE); Hep C Virus Ab w/Reflex Quant NEGATIVE s/c (NEGATIVE)
[2020-05-07 05:16] LABS: RPR Screen Non Reactive (Non Reactive)
[2020-05-07 07:36] LABS: Varicella IgG Antibody 425 index (Immune >165)
== END ==
PROVIDERS: PCP Family Medicine; Referring Provider Family Medicine; Visit Provider Family Medicine
DX: Z34.01 Encounter for supervision of normal first pregnancy, first trimester (principal); Z83.2 Family history of diseases of the blood and blood-forming organs and certain disorders involving the immune mechanism
CPT/HCPCS: 36415; 80055; 81003; 81015; 81241; 84443; 86787; 86803; 86850; 86900; 86901; 87389

== ENCOUNTER → 2020-06-17 13:42 | Outpatient (CLI) | payer OTHER, MEDICAID, SELFPAY ==
[2020-06-17 14:25] LABS: Influenza A - CEPHEID Flu A NEGATIVE (NEGATIVE); Influenza B - CEPHEID Flu B NEGATIVE (NEGATIVE)
[2020-06-17 14:45] LABS: COVID19 -Nasal RAPID Negative (Negative)
== END ==
PROVIDERS: PCP Family Medicine; Visit Provider Student in an Organized Health Care Education/Training Program
DX: Z20.822 Contact with and (suspected) exposure to COVID-19 (principal); R19.7 Diarrhea, unspecified; M54.5 Low back pain
CPT/HCPCS: 87077; 87086; 87147; 87502; 87635

== ENCOUNTER → 2020-06-18 10:38 | Outpatient (CLI) | payer OTHER, MEDICAID, SELFPAY ==
[2020-06-18 10:59] LABS: Add Manual Diff / Slide Review NO; Basophils Absolute Auto 0 /uL (0-100); Basophils Percent Auto 0.4 % (0-2); Eosinophils Absolute Auto 100 /uL (0-450); Eosinophils Percent Auto 0.6 % (2-4); Hematocrit 37.9 % (36-46); Hemoglobin 12.8 g/dL (12.0-16.0); Lymphocytes Absolute Auto 1400 /uL (1100-4500); Lymphocytes Percent Auto 11.7 % (25-40); Mean Corpuscular HGB Conc 33.9 % (30-36); Mean Corpuscular Hemoglobin 30.1 PG (26-34); Mean Corpuscular Volume 88.9 fL (80-100); Monocytes Absolute Auto 600 /uL (0-900); Neutrophils Absolute Auto 9600 /uL (1500-7000); Neutrophils Percent Auto 82.3 % (50-75); Platelet Count 184 X10^3/uL (150-400); Red Blood Cell Count 4.26 X10^6/uL (4.0-5.2); Red Cell Distribution Width 13.4 % (11.6-14.8); White Blood Cell Count 11.7 X10^3/uL (4.5-11.0)
[2020-06-18 11:14] LABS: Alanine Aminotransferase 43 IU/L (<35); Albumin 4.3 g/dL (3.5-5.0); Albumin Globulin Ratio 1.2 (1.0-2.8); Alkaline Phosphatase 74 U/L (38-126); Aspartate Aminotransferase 33 IU/L (14-36); BUN Creatinine Ratio 13.7 (6-22); Bilirubin Total 0.3 mg/dL (0.2-1.3); Blood Urea Nitrogen 7 mg/dL (7-17); Calcium 9.6 mg/dL (8.4-10.2); Carbon Dioxide 24 mmol/L (22-32); Chloride 103 mmol/L (98-107); Estimated Glomerular Filt Rate > 60.0 mL/min (>60); Globulin 3.5 g/dL (1.7-4.1); Glucose 110 mg/dL (70-100); HEMOLYSIS < 15 (0-50); Potassium 3.7 mmol/L (3.4-5.1); Sodium 134 mmol/L (137-145); Total Protein 7.8 g/dL (6.3-8.2)
[2020-06-18 12:24] LABS: Thyroid Stimulating Hormone 2.45 uIU/mL (0.47-4.68)
[2020-06-21 19:06] LABS: AFP, Serum 30.8 ng/mL (.); Inhibin A, Dimeric 91.46 pg/mL (.); Inhibin A, MoM 0.73 (.); Maternal Ethnicity Caucasian (.); Maternal Weight 245 lbs (.); Number of Fetuses No (.); OSBR Risk 1 IN 6704 (.); Results Report (.); Test Results *Screen Negative* (.); hCG, MoM 0.54 (.); hCG, Serum 15316 mIU/mL (.)
== END ==
PROVIDERS: Student in an Organized Health Care Education/Training Program; PCP Family Medicine; Referring Provider Family Medicine; Visit Provider Family Medicine
DX: Z34.90 Encounter for supervision of normal pregnancy, unspecified, unspecified trimester (principal); R68.89 Other general symptoms and signs; E03.9 Hypothyroidism, unspecified; Z3A.16 16 weeks gestation of pregnancy
CPT/HCPCS: 36415; 80053; 82105; 82677; 84443; 84702; 85025; 86336

== ENCOUNTER → 2020-07-15 10:50 | Outpatient (CLI) | payer OTHER, MEDICAID, SELFPAY ==
--- NOTE | 2020-07-15 10:52 | DI.US.S_ITS ---
PROCEDURE: US OB >= 14 WEEKS FETUS INDICATIONS: 20 week anatomy scan OUTSIDE/PRIOR DATING DATA: Last menstrual period (LMP): Unknown. LMP-based estimated date of delivery (GHASSAN): Not applicable . First dating scan (date and location): April 29, 2020 . Estimated date of delivery (GHASSAN) from first dating scan: November 29, 2020 . TECHNIQUE: Real-time scanning was performed of the fetus, with image documentation and biometric measurements. Endovaginal scanning: Not performed COMPARISON: None. FINDINGS: General: A single living intrauterine gestation is present. Presentation: Variable. Placenta: Placental position is anterior , without previa. Amniotic fluid index: 13.1 cm, normal range is 5-24 cm. heart rate: 150 beats per minute. Maternal cervical canal: 5.3 cm long. Normal lower limit is 2.5 cm. biometrics: Biparietal diameter: 4.9 cm, correlating with 20 weeks and 6 days Head circumference: 18.5 cm, correlating with 20 weeks and 6 days Abdominal circumference: 16.7 cm, correlating with 21 weeks and 5 days Femur length: 3.7 cm, correlating with 21 weeks and 4 days Estimated gestational age from initial scan: not applicable. Composite gestational age from present scan: 21 weeks and 2 days Estimated weight and percentile: Approximately 431 g which correlates with the 94th percentile based off gestational age Measurement variability for biometric dating: +/- 7 days from 14 weeks to 15 weeks 6 days gestation, +/- 10 days from 16 weeks to 21 weeks 6 days gestation, +/- 2 weeks from 22 weeks to 27 weeks 6 days gestation, +/- 3 weeks for 28 weeks gestation or later. weight reference: 4500 g or EFW >90/95% is considered macrosomia or large for gestational age. EFW <10% is small for gestational age. EFW 5% or less is considered intra-uterine growth restriction. Anatomic survey: Neuro: Ventricles are non-dilated at less than 10 mm. Cisterna magna is normal at 3-11 mm. Cerebellum is normal in size and morphology. Nuchal skin fold: Normal at less than 6 mm between 14-21 weeks gestational age. Face: Nose and lips, facial profile are normal. Spine: No evidence for spina bifida. Heart: 4-chambered heart is present, with normal ventricular outflow tracts. Diaphragm: Diaphragm is intact. Stomach: Left-sided stomach is present. Kidneys: No hydronephrosis. Normal is less than 5 mm in 2nd trimester, less than 7 mm in 3rd trimester. Cord: 3-vessel cord has orthotopic insertion. Bladder: Normal in size. Extremities: All 4 extremities identified. IMPRESSION: 1. Single living intrauterine gestation with estimated sonographic gestational age of approximately 20 weeks and 2 days with estimated date of delivery of November 29, 2020. Estimated weight of approximately 431 g which correlates with the 94th percentile based off gestational age. 2. Normal routine anatomic screening survey. Dictated by: Royal Jean M.D. on 07/16/2020 at 12:47 Approved by: Royal Jean M.D. on 07/16/2020 at 12:51
== END ==
PROVIDERS: PCP Family Medicine; Referring Provider Family Medicine; Visit Provider Family Medicine
DX: Z34.92 Encounter for supervision of normal pregnancy, unspecified, second trimester (principal); Z3A.21 21 weeks gestation of pregnancy
CPT/HCPCS: 76811

== ENCOUNTER 2020-07-22 18:15 | Emergency (ER) | payer OTHER, MEDICAID, SELFPAY ==
[2020-07-22] VITALS (7 sets, daily range): BP systolic 127–174; BP diastolic 68–109; PULSE 81–101; RESP 12–20; TEMP 35.6; O2SAT 98–100; BMI 38.1
--- NOTE | 2020-07-22 18:28 | ED.CHESTPAIN ---
HPI - Chest Pain General Chief Complaint: Chest Pain Stated Complaint: tingling and numbness in hands Time Seen by Provider: 07/22/20 18:19 Source: patient Mode of arrival: Ambulatory Limitations: no limitations History of Present Illness HPI narrative: 30-year-old female nonsmoker with history of recently diagnosed factor 5 Leiden presents with a chief complaint of chest pressure and back pain as well as some right upper extremity pressure over the course of the day. She states there is no obvious provocation or palliation. She states it is a squeezing and heaviness and 8/10 in severity. She denies any recent travel or injury. She is not dizzy nor weak or lightheaded. She denies any shortness of breath, nausea or vomiting. She denies any dysuria, frequency or urgency. She denies any history of clots but has had some cramping in her left calf off and on over the past days to weeks. She has had no dysuria, frequency or urgency and denies vaginal bleeding or discharge. She is a at 21 weeks and is seen by Dr. Monson locally, but has plans to establish with MFM. RAO complaint: chest pain Onset (ago): hour(s) Duration: constant Onset: during rest Pain location: substernal Severity: moderate Quality: aching and heaviness Pain radiation: back Relieving factors: nothing Exacerbating factors: nothing Treatments prior to arrival chest pain: none Related Data On Oral Contraceptives: No Home Medications Medication Instructions Recorded Confirmed albuterol sulfate [ProAir HFA] 2 puff INHALATION Q4H PRN 04/03/19 03/12/20 epinephrine 0.3 mg/0.3 mL SUBCUT 03/12/20 03/12/20 injection, auto-injector prenat.vits,ata,[id number] 1 tab PO DAILY 04/29/20 04/29/20 Previous Rx's Medication Instructions Recorded fluticasone propionate 50 2 spray NASAL DAILY #18.2 ml 02/15/20 mcg/actuation nasal spray,suspension ondansetron 4 mg disintegrating 4 mg PO Q6H PRN #60 tab 04/29/20 tablet levothyroxine 75 mcg tablet 75 mcg PO DAILY #60 tab 05/11/20 Allergies Allergy/AdvReac Type Severity Reaction Status Date / Time No Known Drug Allergies Allergy Verified 07/22/20 18:24 Review of Systems Constitutional Constitutional: Denies chills, Denies fatigue, Denies fever(s), Denies frequent falls, Denies lethargy and Denies weakness Eyes Eyes: Denies change in vision, Denies eye discharge, Denies irritation and Denies loss of vision ENT Ears, Nose, Mouth, and Throat: Denies change in voice, Denies dizziness, Denies neck pain, Denies sore throat and Denies throat swelling Cardiovascular Cardiovascular: Reports chest pain, Denies irregular heart rhythm, Denies lightheadedness, Denies palpitations, Denies dyspnea, Denies dyspnea on exertion and Denies orthopnea Respiratory Respiratory: Denies cough, Denies dyspnea, Denies dyspnea on exertion and Denies wheezing Gastrointestinal Gastrointestinal: Denies abdominal pain, Denies change in bowel habits, Denies diarrhea, Denies nausea and Denies vomiting Musculoskeletal Musculoskeletal: Denies neck pain, Denies numbness and Reports tingling Integumentary/Breasts Skin/Breast: Denies pruritus, Denies erythema, Denies rash and Denies wounds Neurologic Neurologic: Denies behavioral changes, Denies confusion, Denies dizziness, Denies frequent falls, Denies loss of vision, Denies numbness, Reports tingling and Denies weakness Psychiatric Psychiatric: Denies anxiety, Denies behavioral changes, Denies confusion, Denies depression, Denies homicidal ideation and Denies suicidal ideation Endocrine Endocrine: Denies fatigue, Denies flushing and Denies palpitations Hematologic/Lymphatic Hematologic/Lymphatic: Denies easy bruising Allergic/Immunologic Allergic/Immunologic: Denies urticaria, Denies throat swelling and Denies wheezing Patient History Medical History Acute headache Anxiety (11/16/15) Asthma (~1997) Bronchitis (~1999) Depression (11/16/15) Hemoptysis Hypercholesteremia (~01/2020) Hypertension (~01/2020) Hypothyroid Pneumonia (~1999) Right knee sprain Stye Tailbone injury (~1999) Tibia fracture (~2017) Vasovagal reaction (~2016) Whiplash injuries Family History Brother Age: 23 Bipolar affective disorder, remission status unspecified Father Age: 57 Type 2 diabetes mellitus without complication, unspecified 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 insulin use status Heart disease Essential hypertension Hyperlipidemia Cancer Myocardial infarction High threshold of implanted defibrillator Grandmother Cancer Smoker Mental health problem Mother Age: 55 Mental health problem Hypothyroid PTSD (post-traumatic stress disorder) Factor V deficiency, congenital Grandmother Type 2 diabetes mellitus without complication, unspecified retirement insulin use status Mental health problem Sister Age: 32 Bipolar affective disorder, remission status unspecified Heart murmur Congenital heart defect Factor V deficiency, congenital Sister Age: 26 Adrenal gland disorder Hypothyroid Congenital adrenal hyperplasia PCOS (polycystic ovarian syndrome) Migraines Grandfather Cancer Smoker Grandfather Myocardial infarction Family/Other Schizophrenia Family estrangement Social History marital status: unmarried,living together household members: significant other lives independently: Yes caregiver/support person: No housing: other (Live in in permanent park in [place].) pets and animals: Yes (2 dog (aware, dogs are very gentle w kids)) education level: high school (Did not finish high school. Wants to get GED. 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 She will avoid. ) alcohol intake: former (~2 drinks per week, formerly when not . None since conception. ) substance use type: marijuana (Stopped with diagnosis. ) during the past year weight has: increased > 10 lbs well-balanced diet: daily or most days daily servings fruits/ve-4 caffeine: Yes (One 12 oz breve latte daily. Aware of 200 mg precautions. ) Type(s) of exercise: walking frequency: 1-2 times per week duration: 30-45 minutes/day Smoking Status: Never smoker alcohol intake frequency: holidays/special occasions only Substance Use Type: marijuana Exam Narrative Exam Narrative: GENERAL: [30] year old patient appears stated age. Well-nourished, well-developed patient, in mild distress. Anxious HEAD: Atraumatic. Normocephalic. EYES: Pupils equal round and reactive. Extraocular motions intact. No scleral icterus. No injection or drainage. ENT: Nose without bleeding, purulent drainage. Throat without erythema, tonsillar hypertrophy or exudate. Airway patent. NECK: Trachea midline. Non tender CARDIOVASCULAR: Regular rate and rhythm without murmurs, gallops, or rubs. RESPIRATORY: Clear to auscultation. Breath sounds equal bilaterally. No wheezes, rales, or rhonchi. GASTROINTESTINAL: Abdomen gravid above umbilicus, no pain in epigastrium right upper quadrant EXTREMITIES: No edema or joint tenderness. No erythema, warmth or obvious swelling, no calf pain BACK: Nontender without deformity or crepitance. No flank tenderness. NEURO: AOx3. SKIN: No rash or erythema of visible areas Initial Vital Signs Initial Vital Signs: Vital Signs Temperature 96.1 F L 07/22/20 18:19 Pulse Rate 99 H 07/22/20 18:19 Respiratory Rate 20 07/22/20 18:19 Blood Pressure 174/103 H 07/22/20 18:19 Pulse Oximetry 100 07/22/20 18:19 Course Course Course Narrative: YEARS Algorithm for Pulmonary Embolism (PE) from [employer] on 07/23/2020 All calculations should be rechecked by clinician prior to use RESULT SUMMARY: PE excluded YEARS algorithm rules out PE (0.43% with symptomatic VTE during 3-month follow-up) INPUTS: patient ?> 1 = Yes Clinical signs of DVT ?> 1 = Yes Compression ultrasonography of symptomatic leg ?> 1 = Normal Hemoptysis ?> 0 = No PE most likely diagnosis ?> 0 = No D-dimer ?500 ng/mL ?> 0 = No Orders Ordered: ED Orders 07/22/20 18:26 EKG-12 Lead Stat 07/22/20 18:43 US periph venous low extrem bi Stat 07/22/20 18:46 Complete Blood Count AUTO DIFF Stat Comprehensive Metabolic Panel Stat D Dimer Stat Lipase Stat Troponin & CK Cardiac Panel Stat 07/22/20 20:00 Urine Microscopic Stat Discontinued Medications Enoxaparin Sodium (Enoxaparin 40 Mg/0.4 Ml Syringe) 40 mg SUBCUT NOW ONE Stop: 07/22/20 20:27 Last Admin: 07/22/20 20:33 Dose: 40 mg Documented by: ROBI Sodium Chloride (Normal Saline 0.9%) 1,000 mls @ 150 mls/hr IV CONT DHARMESH Last Admin: 07/22/20 18:36 Dose: 150 mls/hr Documented by: ROBI Labetalol HCl (Labetalol 20 Mg/4 Ml Syringe) 20 mg IV NOW ONE Stop: 07/22/20 18:32 Last Admin: 07/22/20 18:36 Dose: 20 mg Documented by: ROBI Reevaluation(s) Reevaluation #1: Patient with complete resolution of symptoms once BP down to the 120s Consultations Consultation #1: discussed with Dr. Monson who requests that we initiate Lovenox therapy and states she will see patient tomorrow at noon to being BP meds and confirm establishment with MFM Vital Signs Vital signs: Vital Signs - 8 hr 07/22/20 18:19 07/22/20 18:36 07/22/20 19:14 Temperature 96.1 F L Pulse Rate 99 H 101 H 81 Respiratory Rate 20 14 Blood Pressure 174/103 H 165/109 H 149/83 H Pulse Oximetry 100 98 07/22/20 19:20 07/22/20 19:30 07/22/20 20:08 Temperature Pulse Rate 92 H Respiratory Rate Blood Pressure 154/81 H 137/86 127/78 Pulse Oximetry 07/22/20 20:42 Temperature Pulse Rate 91 H Respiratory Rate 12 Blood Pressure 131/68 Pulse Oximetry 100 MDM - Chest Pain Lab Data Result diagrams: 07/22/20 18:46 07/22/20 18:46 Labs: Lab Results 07/22/20 07/22/20 07/22/20 Range/Units 18:46 18:46 18:46 WBC 13.8 H (4.5-11.0) X10^3/uL RBC 3.96 L (4.0-5.2) X10^6/uL Hgb 12.1 (12.0-16.0) g/dL Hct 35.6 L (36-46) % MCV 89.8 (80-100) fL MCH 30.7 (26-34) PG MCHC 34.1 (30-36) % RDW 12.9 (11.6-14.8) % Plt Count 200 (150-400) X10^3/uL Neut % (Auto) 78.8 H (50-75) % Lymph % (Auto) 15.3 L (25-40) % [place] % (Auto) 4.6 (3-14) % Eos % (Auto) 0.7 L (2-4) % Baso % (Auto) 0.6 (0-2) % Neut # (Auto) 42755 H (6530-6984) /uL Lymph # (Auto) 2100 (2198-8971) /uL [place] # (Auto) 600 (0-900) /uL Eos # (Auto) 100 (0-450) /uL Baso # (Auto) 100 (0-100) /uL D-Dimer 378 H (<230) ng/mL Sodium 135 L (137-145) mmol/L Potassium 3.8 (3.4-5.1) mmol/L Chloride 101 (98-107) mmol/L Carbon Dioxide 27 (22-32) mmol/L BUN 8 (7-17) mg/dL Creatinine 0.56 (0.52-1.04) mg/dL Estimated GFR > 60.0 (>60) mL/min BUN/Creatinine Ratio 14.3 (6-22) Glucose 149 H (70-100) mg/dL Calcium 10.2 (8.4-10.2) mg/dL Total Bilirubin 0.2 (0.2-1.3) mg/dL AST 29 (14-36) IU/L ALT 32 (<35) IU/L Alkaline Phosphatase 105 (38-126) U/L Total Creatine Kinase 85 (30-135) U/L CK-MB (CK-2) TNP CK-MB (CK-2) Rel Index TNP Troponin I < 0.012 (0.01-0.034) ng/mL Total Protein 8.0 (6.3-8.2) g/dL Albumin 4.3 (3.5-5.0) g/dL Globulin 3.7 (1.7-4.1) g/dL Albumin/Globulin Ratio 1.2 (1.0-2.8) Lipase 49 (23-300) U/L Urine RBC (0-5/HPF) Urine WBC (0-5/HPF) Ur Squamous Epith Cells (0-5/HPF) Amorphous Sediment Urine Bacteria (None) Ur Culture Indicated? 07/22/20 Range/Units 20:00 WBC (4.5-11.0) X10^3/uL RBC (4.0-5.2) X10^6/uL Hgb (12.0-16.0) g/dL Hct (36-46) % MCV (80-100) fL MCH (26-34) PG MCHC (30-36) % RDW (11.6-14.8) % Plt Count (150-400) X10^3/uL Neut % (Auto) (50-75) % Lymph % (Auto) (25-40) % [place] % (Auto) (3-14) % Eos % (Auto) (2-4) % Baso % (Auto) (0-2) % Neut # (Auto) (0689-1467) /uL Lymph # (Auto) (2521-2042) /uL [place] # (Auto) (0-900) /uL Eos # (Auto) (0-450) /uL Baso # (Auto) (0-100) /uL D-Dimer (<230) ng/mL Sodium (137-145) mmol/L Potassium (3.4-5.1) mmol/L Chloride (98-107) mmol/L Carbon Dioxide (22-32) mmol/L BUN (7-17) mg/dL Creatinine (0.52-1.04) mg/dL Estimated GFR (>60) mL/min BUN/Creatinine Ratio (6-22) Glucose (70-100) mg/dL Calcium (8.4-10.2) mg/dL Total Bilirubin (0.2-1.3) mg/dL AST (14-36) IU/L ALT (<35) IU/L Alkaline Phosphatase (38-126) U/L Total Creatine Kinase (30-135) U/L CK-MB (CK-2) CK-MB (CK-2) Rel Index Troponin I (0.01-0.034) ng/mL Total Protein (6.3-8.2) g/dL Albumin (3.5-5.0) g/dL Globulin (1.7-4.1) g/dL Albumin/Globulin Ratio (1.0-2.8) Lipase (23-300) U/L Urine RBC 1-5/hpf (0-5/HPF) Urine WBC 0-1/hpf (0-5/HPF) Ur Squamous Epith Cells 0-1 /hpf (0-5/HPF) Amorphous Sediment 1+ Urine Bacteria Occasional (0-1) (None) Ur Culture Indicated? Cult not indicated Urine Dip Bedside Urine Glucose Negative Bedside Urine Bilirubin - Negative Bedside Urine Ketone - Negative Urine Specific [place] 1.025 Bedside Urine Occult Blood +++ Bedside Urine pH 6.0 Bedside Urine Protein - Negative Bedside Urine Urobilinogen - Negative Bedside Urine Nitrite - Negative Bedside Urine Leukocytes - Negative Esterase Imaging Data US - DVT: Radiologist's Impression: [address] [id number] ReportSigned Patient: Haley Hassan MMR#: [id number]: [id number]:[id number]/Sex: 30 te of Service: 07/22/20Loc: EDAccession Number: [id number] Procedure: US periph venous low extrem bi Ordering Provider: Moy Angeles D.O. PROCEDURE: US PERIPH VENOUS LOW EXTREM BI INDICATIONS: pain leg, , factor V TECHNIQUE: Real-time imaging, as well as color and pulse Doppler interrogation, were performed of the deep veins of both legs from the inguinal ligament to the popliteal fossa. COMPARISON: None. FINDINGS: Right: The common femoral, femoral and popliteal veins are normally compressible, and free of intraluminal thrombus. Color and pulse Doppler demonstrate normal phasic intravascular flow. There is normal augmentation response to distal compression maneuver. Left: The common femoral, femoral and popliteal veins are normally compressible, and free of intraluminal thrombus. Color and pulse Doppler demonstrate normal phasic intravascular flow. There is normal augmentation response to distal compression maneuver. Intrauterine fetus with a heart rate measuring 157 beats per minute. IMPRESSION: No evidence of deep venous thrombosis. Dictated by: Seng Khan M.D. on 07/22/2020 at 20:24 Approved by: Seng Khan M.D. on 07/22/2020 at 20:25 [facility] Narrative Medical decision making narrative: Patient with chest pain, radiation to the back and occasional leg cramping is at 21 weeks with history of untreated factor 5 Leiden. Initial blood pressure quite elevated and responds very well to labetalol. Symptoms are most likely related to a hypertensive episode given the temporal relationship. Symptoms completely resolved with resolution of high blood pressure. Also considered preeclampsia and HELLP syndrome but lack of abnormal labs or proteinuria. Considered pulmonary embolism given her risk, however B/L LE US shows no clot and use of YEARS Algorithm would suggest PE Excluded Discharge Plan Departure Patient Disposition: Home Clinical Impression: Hypertension affecting Qualifiers: Trimester: second trimester Qualified Code(s): O16.2 - Unspecified maternal hypertension, second trimester Activity Restrictions/Additional Instructions: *You have been diagnosed with [symptoms relating to significantly elevated blood pressure] *What to do: *Follow up with Dr. Monson tomorrow at noon, she scheduled an appointment for you. *Return to ER if you should have any new, worsening or concerning symptoms, such as [ chest pain, shortness of breath, or other bothersome symptoms] Prescriptions: No Action fluticasone propionate [Flonase Allergy Relief] 50 mcg/actuation spray,suspension 2 spray NASAL DAILY Qty: 18.2 RF: 0 levothyroxine 75 mcg tablet 75 mcg PO DAILY Qty: 60 RF: 2 epinephrine 0.3 mg/0.3 mL auto-injector SUBCUT RF: 0 prenat.vits,ata,[id number] Tablet 1 tab PO DAILY RF: 0 ondansetron 4 mg tablet,disintegrating 4 mg PO Q6H PRN (Reason: nausea and vomiting) Qty: 60 RF: 1 albuterol sulfate [ProAir HFA] 90 mcg/actuation HFA aerosol inhaler 2 puff INHALATION Q4H PRN (Reason: Shortness Of Breath Or Wheezing) RF: 0 Referrals: Doug Martin DO [Primary Care Provider] -
[2020-07-22] MEDS: LABETALOL 20 MG/4 ML SYRINGE IV (18:36)
[2020-07-22] MEDS: SODIUM CHLORIDE 0.9% 1,000 ML 150 ML IV (18:36)
--- NOTE | 2020-07-22 18:43 | DI.US.S_ITS ---
PROCEDURE: US PERIPH VENOUS LOW EXTREM BI INDICATIONS: pain leg, , factor V TECHNIQUE: Real-time imaging, as well as color and pulse Doppler interrogation, were performed of the deep veins of both legs from the inguinal ligament to the popliteal fossa. COMPARISON: None. FINDINGS: Right: The common femoral, femoral and popliteal veins are normally compressible, and free of intraluminal thrombus. Color and pulse Doppler demonstrate normal phasic intravascular flow. There is normal augmentation response to distal compression maneuver. Left: The common femoral, femoral and popliteal veins are normally compressible, and free of intraluminal thrombus. Color and pulse Doppler demonstrate normal phasic intravascular flow. There is normal augmentation response to distal compression maneuver. Intrauterine fetus with a heart rate measuring 157 beats per minute. IMPRESSION: No evidence of deep venous thrombosis. Dictated by: Seng Khan M.D. on 07/22/2020 at 20:24 Approved by: Seng Khan M.D. on 07/22/2020 at 20:25
[2020-07-22 18:54] LABS: Add Manual Diff / Slide Review NO; Basophils Absolute Auto 100 /uL (0-100); Basophils Percent Auto 0.6 % (0-2); Eosinophils Absolute Auto 100 /uL (0-450); Eosinophils Percent Auto 0.7 % (2-4); Hematocrit 35.6 % (36-46); Hemoglobin 12.1 g/dL (12.0-16.0); Lymphocytes Absolute Auto 2100 /uL (1100-4500); Lymphocytes Percent Auto 15.3 % (25-40); Mean Corpuscular HGB Conc 34.1 % (30-36); Mean Corpuscular Hemoglobin 30.7 PG (26-34); Mean Corpuscular Volume 89.8 fL (80-100); Monocytes Absolute Auto 600 /uL (0-900); Monocytes Percent Auto 4.6 % (3-14); Neutrophils Absolute Auto 10900 /uL (1500-7000); Neutrophils Percent Auto 78.8 % (50-75); Platelet Count 200 X10^3/uL (150-400); Red Blood Cell Count 3.96 X10^6/uL (4.0-5.2); Red Cell Distribution Width 12.9 % (11.6-14.8); White Blood Cell Count 13.8 X10^3/uL (4.5-11.0)
[2020-07-22 19:08] LABS: Alanine Aminotransferase 32 IU/L (<35); Albumin 4.3 g/dL (3.5-5.0); Albumin Globulin Ratio 1.2 (1.0-2.8); Alkaline Phosphatase 105 U/L (38-126); Aspartate Aminotransferase 29 IU/L (14-36); BUN Creatinine Ratio 14.3 (6-22); Bilirubin Total 0.2 mg/dL (0.2-1.3); Blood Urea Nitrogen 8 mg/dL (7-17); Calcium 10.2 mg/dL (8.4-10.2); Carbon Dioxide 27 mmol/L (22-32); Chloride 101 mmol/L (98-107); Creatine Kinase 85 U/L (30-135); Estimated Glomerular Filt Rate > 60.0 mL/min (>60); Globulin 3.7 g/dL (1.7-4.1); Glucose 149 mg/dL (70-100); HEMOLYSIS < 15 (0-50); Lipase 49 U/L (23-300); Potassium 3.8 mmol/L (3.4-5.1); Sodium 135 mmol/L (137-145)
[2020-07-22 19:20] LABS: Troponin I < 0.012 ng/mL (0.01-0.034)
[2020-07-22 19:25] LABS: D Dimer 378 ng/mL (<230)
[2020-07-22 20:28] LABS: Amorphous Sediment Urine 1+; Bacteria Urine Occasional (0-1); Culture Indicated Urine Cult Not Indicated; RBC Urine 1-5/HPF (0-5/HPF); Squamous Epithelial Cell Urine 0-1 /HPF (0-5/HPF); WBC Urine 0-1/HPF (0-5/HPF)
[2020-07-22] MEDS: ENOXAPARIN 40 MG/0.4 ML SYRINGE SUBCUT (20:33)
== END 2020-07-22 20:43 | disposition home or self-care (01) ==
PROVIDERS: Emergency Provider Emergency Medicine; PCP Family Medicine
DX: O16.2 Unspecified maternal hypertension, second trimester (principal); R07.9 Chest pain, unspecified; M54.9 Dorsalgia, unspecified; M79.605 Pain in left leg; D68.51 Activated protein C resistance; Z3A.21 21 weeks gestation of pregnancy
CPT/HCPCS: 36415; 80053; 81003; 81015; 82550; 83690; 84484; 85025; 85379; 93005; 93970; 96372; 96374; 99283; 99284; J1650

== ENCOUNTER → 2020-07-24 18:34 | Outpatient (CLI) | payer OTHER, MEDICAID, SELFPAY ==
[2020-07-24 20:04] LABS: Collection Time Urine 24 Hours; Protein (Total) Urine Random 15 mg/dL (0-12); Total Protein 24 Hour Urine 300 mg/day (42-225); Total Volume Urine 2000 mL
[2020-07-24 20:05] LABS: Creatinine Urine Random 86.7 mg/dL
[2020-07-24 20:10] LABS: Microalbumi Creatinin Ratio Ur 36.9 ug/mg CR (<30); Microalbumin Urine Random 3.2 mg/dL (0-1.6)
== END ==
PROVIDERS: PCP Family Medicine; Referring Provider Family Medicine; Visit Provider Family Medicine
DX: O16.2 Unspecified maternal hypertension, second trimester (principal)
CPT/HCPCS: 82043; 82570; 84156

== ENCOUNTER → 2020-07-27 16:38 | Outpatient (CLI) | payer OTHER, MEDICAID, SELFPAY ==
[2020-07-27 17:23] LABS: TSH w/ Reflex to FT4 3.21 uIU/mL (0.47-4.68)
== END ==
PROVIDERS: PCP Family Medicine; Visit Provider Family Medicine
DX: E03.9 Hypothyroidism, unspecified (principal)
CPT/HCPCS: 84443

== ENCOUNTER → 2020-08-05 12:15 | Outpatient (CLI) | payer OTHER, MEDICAID, SELFPAY ==
[2020-08-05 12:40] LABS: Add Manual Diff / Slide Review NO; Basophils Absolute Auto 100 /uL (0-100); Basophils Percent Auto 0.5 % (0-2); Eosinophils Absolute Auto 100 /uL (0-450); Eosinophils Percent Auto 0.5 % (2-4); Lymphocytes Absolute Auto 1600 /uL (1100-4500); Lymphocytes Percent Auto 10.9 % (25-40); Mean Corpuscular HGB Conc 34.5 % (30-36); Mean Corpuscular Hemoglobin 30.6 PG (26-34); Mean Corpuscular Volume 88.9 fL (80-100); Monocytes Absolute Auto 1100 /uL (0-900); Monocytes Percent Auto 7.3 % (3-14); Neutrophils Absolute Auto 11800 /uL (1500-7000); Neutrophils Percent Auto 80.8 % (50-75); Platelet Count 213 X10^3/uL (150-400); Red Blood Cell Count 3.93 X10^6/uL (4.0-5.2); White Blood Cell Count 14.6 X10^3/uL (4.5-11.0)
[2020-08-05 13:09] LABS: Alanine Aminotransferase 22 IU/L (<35); Albumin 4.4 g/dL (3.5-5.0); Albumin Globulin Ratio 1.2 (1.0-2.8); Alkaline Phosphatase 101 U/L (38-126); Aspartate Aminotransferase 25 IU/L (14-36); BUN Creatinine Ratio 18.2 (6-22); Bilirubin Total 0.2 mg/dL (0.2-1.3); Blood Urea Nitrogen 8 mg/dL (7-17); Calcium 10.3 mg/dL (8.4-10.2); Carbon Dioxide 25 mmol/L (22-32); Chloride 102 mmol/L (98-107); Estimated Glomerular Filt Rate > 60.0 mL/min (>60); Globulin 3.8 g/dL (1.7-4.1); Glucose 89 mg/dL (70-100); HEMOLYSIS < 15 (0-50); Potassium 3.9 mmol/L (3.4-5.1); Sodium 134 mmol/L (137-145); Total Protein 8.2 g/dL (6.3-8.2)
== END ==
PROVIDERS: PCP Family Medicine; Referring Provider Family Medicine; Visit Provider Family Medicine
DX: O16.2 Unspecified maternal hypertension, second trimester (principal)
CPT/HCPCS: 36415; 80053; 85025

== ENCOUNTER → 2020-08-12 10:42 | Outpatient (CLI) | payer OTHER, MEDICAID, SELFPAY ==
[2020-08-12 11:56] LABS: Add Manual Diff / Slide Review NO; Basophils Absolute Auto 100 /uL (0-100); Basophils Percent Auto 0.5 % (0-2); Eosinophils Absolute Auto 100 /uL (0-450); Eosinophils Percent Auto 0.6 % (2-4); Hematocrit 34.8 % (36-46); Lymphocytes Absolute Auto 1700 /uL (1100-4500); Lymphocytes Percent Auto 12.3 % (25-40); Mean Corpuscular HGB Conc 34.5 % (30-36); Mean Corpuscular Hemoglobin 31.2 PG (26-34); Mean Corpuscular Volume 90.4 fL (80-100); Monocytes Absolute Auto 600 /uL (0-900); Monocytes Percent Auto 4.6 % (3-14); Neutrophils Absolute Auto 11700 /uL (1500-7000); Platelet Count 194 X10^3/uL (150-400); Red Blood Cell Count 3.85 X10^6/uL (4.0-5.2); Red Cell Distribution Width 13.1 % (11.6-14.8); White Blood Cell Count 14.2 X10^3/uL (4.5-11.0)
[2020-08-12 12:12] LABS: Alanine Aminotransferase 24 IU/L (<35); Albumin 4.2 g/dL (3.5-5.0); Albumin Globulin Ratio 1.2 (1.0-2.8); Alkaline Phosphatase 110 U/L (38-126); Aspartate Aminotransferase 27 IU/L (14-36); Bilirubin Total 0.2 mg/dL (0.2-1.3); Blood Urea Nitrogen 8 mg/dL (7-17); Calcium 9.7 mg/dL (8.4-10.2); Carbon Dioxide 22 mmol/L (22-32); Chloride 102 mmol/L (98-107); Estimated Glomerular Filt Rate > 60.0 mL/min (>60); Globulin 3.6 g/dL (1.7-4.1); Glucose 120 mg/dL (70-100); HEMOLYSIS < 15 (0-50); Potassium 3.9 mmol/L (3.4-5.1); Sodium 134 mmol/L (137-145); Total Protein 7.8 g/dL (6.3-8.2)
== END ==
PROVIDERS: PCP Family Medicine; Referring Provider Family Medicine; Visit Provider Family Medicine
DX: O13.9 Gestational [pregnancy-induced] hypertension without significant proteinuria, unspecified trimester (principal)
CPT/HCPCS: 36415; 80053; 85025

== ENCOUNTER → 2020-08-19 10:57 | Outpatient (CLI) | payer OTHER, MEDICAID, SELFPAY ==
[2020-08-19 12:16] LABS: Add Manual Diff / Slide Review NO; Basophils Absolute Auto 100 /uL (0-100); Basophils Percent Auto 0.5 % (0-2); Eosinophils Absolute Auto 100 /uL (0-450); Eosinophils Percent Auto 0.4 % (2-4); Hematocrit 32.3 % (36-46); Lymphocytes Absolute Auto 1400 /uL (1100-4500); Lymphocytes Percent Auto 11.2 % (25-40); Mean Corpuscular Hemoglobin 30.4 PG (26-34); Mean Corpuscular Volume 89.5 fL (80-100); Monocytes Absolute Auto 600 /uL (0-900); Monocytes Percent Auto 4.6 % (3-14); Neutrophils Absolute Auto 10500 /uL (1500-7000); Neutrophils Percent Auto 83.3 % (50-75); Platelet Count 186 X10^3/uL (150-400); White Blood Cell Count 12.6 X10^3/uL (4.5-11.0)
[2020-08-19 12:42] LABS: Alanine Aminotransferase 23 IU/L (<35); Albumin 3.9 g/dL (3.5-5.0); Albumin Globulin Ratio 1.3 (1.0-2.8); Alkaline Phosphatase 102 U/L (38-126); Aspartate Aminotransferase 21 IU/L (14-36); BUN Creatinine Ratio 18.6 (6-22); Bilirubin Total 0.2 mg/dL (0.2-1.3); Blood Urea Nitrogen 8 mg/dL (7-17); Calcium 10.1 mg/dL (8.4-10.2); Carbon Dioxide 21 mmol/L (22-32); Chloride 102 mmol/L (98-107); Estimated Glomerular Filt Rate > 60.0 mL/min (>60); Glucose 129 mg/dL (70-100); HEMOLYSIS < 15 (0-50); Lactate Dehydrogenase 295 U/L (313-618); Sodium 134 mmol/L (137-145); Total Protein 6.9 g/dL (6.3-8.2); Uric Acid 6.1 mg/dL (2.5-6.2)
== END ==
PROVIDERS: Obstetrics & Gynecology; PCP Family Medicine; Referring Provider Family Medicine; Visit Provider Family Medicine
DX: O13.2 Gestational [pregnancy-induced] hypertension without significant proteinuria, second trimester (principal)
CPT/HCPCS: 36415; 80053; 83615; 84550; 85025

== ENCOUNTER → 2020-08-26 14:55 | Outpatient (CLI) | payer OTHER, MEDICAID, SELFPAY ==
[2020-08-26 16:13] LABS: Add Manual Diff / Slide Review NO; Basophils Absolute Auto 0 /uL (0-100); Basophils Percent Auto 0.2 % (0-2); Eosinophils Absolute Auto 100 /uL (0-450); Eosinophils Percent Auto 0.5 % (2-4); Hematocrit 33.6 % (36-46); Hemoglobin 11.5 g/dL (12.0-16.0); Lymphocytes Absolute Auto 1500 /uL (1100-4500); Lymphocytes Percent Auto 10.7 % (25-40); Mean Corpuscular HGB Conc 34.3 % (30-36); Mean Corpuscular Hemoglobin 30.8 PG (26-34); Mean Corpuscular Volume 89.9 fL (80-100); Monocytes Absolute Auto 900 /uL (0-900); Monocytes Percent Auto 6.3 % (3-14); Neutrophils Absolute Auto 11400 /uL (1500-7000); Neutrophils Percent Auto 82.3 % (50-75); Platelet Count 194 X10^3/uL (150-400); Red Blood Cell Count 3.73 X10^6/uL (4.0-5.2); White Blood Cell Count 13.9 X10^3/uL (4.5-11.0)
[2020-08-26 16:35] LABS: Alanine Aminotransferase 20 IU/L (<35); Albumin 3.9 g/dL (3.5-5.0); Albumin Globulin Ratio 1.3 (1.0-2.8); Alkaline Phosphatase 106 U/L (38-126); Aspartate Aminotransferase 23 IU/L (14-36); BUN Creatinine Ratio 12.2 (6-22); Bilirubin Total 0.2 mg/dL (0.2-1.3); Blood Urea Nitrogen 6 mg/dL (7-17); Carbon Dioxide 20 mmol/L (22-32); Chloride 103 mmol/L (98-107); Estimated Glomerular Filt Rate > 60.0 mL/min (>60); Globulin 3.1 g/dL (1.7-4.1); Glucose 100 mg/dL (70-100); HEMOLYSIS < 15 (0-50); Lactate Dehydrogenase 322 U/L (313-618); Potassium 3.9 mmol/L (3.4-5.1); Sodium 133 mmol/L (137-145); Uric Acid 5.7 mg/dL (2.5-6.2)
== END ==
PROVIDERS: PCP Family Medicine; Referring Provider Obstetrics & Gynecology; Visit Provider Obstetrics & Gynecology
DX: O13.2 Gestational [pregnancy-induced] hypertension without significant proteinuria, second trimester (principal)
CPT/HCPCS: 36415; 80053; 83615; 84550; 85025

== ENCOUNTER → 2020-08-28 13:56 | Outpatient (CLI) | payer OTHER, MEDICAID, SELFPAY ==
[2020-08-28 16:17] LABS: Protein (Total) Urine Random 27 mg/dL (0-12)
[2020-08-28 17:52] LABS: Collection Time Urine 24 Hours; Total Protein 24 Hour Urine 459 mg/day (42-225); Total Volume Urine 1700 mL
== END ==
PROVIDERS: PCP Family Medicine; Referring Provider Obstetrics & Gynecology; Visit Provider Obstetrics & Gynecology
DX: O13.2 Gestational [pregnancy-induced] hypertension without significant proteinuria, second trimester (principal)
CPT/HCPCS: 84156

== ENCOUNTER 2020-08-31 18:47 | Observation (INO) | payer OTHER, MEDICAID, SELFPAY ==
[2020-08-31 19:47] LABS: Add Manual Diff / Slide Review NO; Basophils Absolute Auto 100 /uL (0-100); Basophils Percent Auto 0.6 % (0-2); Eosinophils Absolute Auto 100 /uL (0-450); Hematocrit 33.2 % (36-46); Hemoglobin 11.3 g/dL (12.0-16.0); Lymphocytes Absolute Auto 1700 /uL (1100-4500); Mean Corpuscular Hemoglobin 30.7 PG (26-34); Mean Corpuscular Volume 90.3 fL (80-100); Monocytes Absolute Auto 1100 /uL (0-900); Monocytes Percent Auto 7.4 % (3-14); Neutrophils Absolute Auto 11300 /uL (1500-7000); Platelet Count 198 X10^3/uL (150-400); Red Blood Cell Count 3.68 X10^6/uL (4.0-5.2); Red Cell Distribution Width 13.3 % (11.6-14.8); White Blood Cell Count 14.3 X10^3/uL (4.5-11.0)
[2020-08-31 20:08] LABS: Aspartate Aminotransferase 27 IU/L (14-36); Blood Urea Nitrogen 8 mg/dL (7-17); Estimated Glomerular Filt Rate > 60.0 mL/min (>60); Uric Acid 5.3 mg/dL (2.5-6.2)
--- NOTE | 2020-08-31 21:10 | P.TNLD_ITS ---
Visit Information Visit Information Date of evaluation: 08/31/20 Primary OB Provider: Jovan On-call OB Provider: Amisha Flores Reason for Evaluation: Yes other Comments/Additional reasons for admission: 30YO @ 26wks 6days here for evaluation of headache a RUQ pain after talking to clinic RN. complicated by CHTN for which she takes labetalol 100mg BID. Has frequent heada ches, that feel like typical headaches for her, usually relieved by Tylenol. She's just concerned because they're so frequent. Is also bothered by bilateral hand (R>L) numbness, tingling and pain. Has had RUQ pain since 21 weeks that she was told is likely a rib that is dislocating. +FM. No cramping or VB. No vision changes. Vital Signs Vital Signs: Serial BPs: 124/62, 114/58, 107/60, 109/64 HR 83 T 97.4 F Temporal PFSH Medical History Acute headache Anxiety (11/16/15) Asthma (~1997) Bilateral carpal tunnel syndrome Bronchitis (~1999) Depression (11/16/15) Gestational hypertension Hemoptysis Hypercholesteremia (~01/2020) Hypertension (~01/2020) Pneumonia (~1999) Right knee sprain Stye Tailbone injury (~1999) Tibia fracture (~2017) Vasovagal reaction (~2016) Whiplash injuries Family History Brother Age: 23 Bipolar affective disorder, remission status unspecified Father Age: 57 Type 2 diabetes mellitus without complication, unspecified lo ng term insulin use status Heart disease Essential hypertension Hyperlipidemia Cancer Myocardial infarction High threshold of implanted defibrillator Grandmother Cancer Smoker Mental health problem Mother Age: 55 Mental health problem Hypothyroid PTSD (post-traumatic stress disorder) Factor V deficiency, congenital Grandmother Type 2 diabetes mellitus without complication, unspecified intermediate frame tender insulin use status Mental health problem Sister Age: 32 Bipolar affective disorder, remission status unspecified Heart murmur Congenital heart defect Factor V deficiency, congenital Sister Age: 26 Adrenal gland disorder Hypothyroid Congenital adrenal hyperplasia PCOS (polycystic ovarian syndrome) Migraines Grandfather Cancer Smoker Grandfather Myocardial infarction Family/Other Schizophrenia Family estrangement Social History marital status: unmarried,living together household members: significant other lives independently: Yes caregiver/support person: No housing: other (Live in in [place] in [place].) pets and animals: Yes (2 dog (aware, dogs are very gentle w kids)) education level: high school (Did not finish high school. Wants to get GED. 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 She will avoid. ) alcohol intake: former (~2 drinks per week, formerly when not . None since conception. ) substance use type: marijuana (Stopped with diagnosis. ) during the past year weight has: increased > 10 lbs well-balanced diet: daily or most days daily servings fruits/ve-4 caffeine: Yes (One 12 oz breve latte daily. Aware of 200 mg precautions. ) Type(s) of exercise: walking frequency: 1-2 times per week duration: 30-45 minutes/day Review of Systems Review of Systems ROS: Yes All systems reviewed with the patient and are negative except as otherwise documented Exam Vital Signs (past 8 hours): see above Chest Other: Localized right anterior rib tenderness Resp Effort & Inspection: normal respiratory effort Auscultation: clear to auscultation bilaterally Cardio Rate: regular rate Rhythm: regular rhythm Heart Sounds: S1 normal and S2 normal Objective Labs Result Diagrams: 08/31/20 19:33 08/31/20 19:33 Labs: Laboratory Results - last 24 hr 08/31/20 08/31/20 19:33 19:33 WBC 14.3 H RBC 3.68 L Hgb 11.3 L Hct 33.2 L MCV 90.3 MCH 30.7 MCHC 34.0 RDW 13.3 Plt Count 198 Neut % (Auto) 79.0 H Lymph % (Auto) 12.0 L [place] % (Auto) 7.4 Eos % (Auto) 1.0 L Baso % (Auto) 0.6 Neut # (Auto) 62019 H Lymph # (Auto) 1700 [place] # (Auto) 1100 H Eos # (Auto) 100 Baso # (Auto) 100 BUN 8 Creatinine 0.42 L Estimated GFR > 60.0 BUN/Creatinine Ratio 19.0 Uric Acid 5.3 AST 27 24 hour urine protein from 08/28/20: 459 mg Evaluation Evaluation Laboratory results: Laboratory Tests 08/31/20 08/31/20 19:33 19:33 WBC 14.3 H RBC 3.68 L Hgb 11.3 L Hct 33.2 L MCV 90.3 MCH 30.7 MCHC 34.0 RDW 13.3 Plt Count 198 Neut % (Auto) 79.0 H Lymph % (Auto) 12.0 L [place] % (Auto) 7.4 Eos % (Auto) 1.0 L Baso % (Auto) 0.6 Neut # (Auto) 37296 H Lymph # (Auto) 1700 [place] # (Auto) 1100 H Eos # (Auto) 100 Baso # (Auto) 100 BUN 8 Creatinine 0.42 L Estimated GFR > 60.0 BUN/Creatinine Ratio 19.0 Uric Acid 5.3 AST 27 Diagnosis, Plan/Disposition Final Diagnosis (1) Gestational hypertension: Status: Acute Problem details: Stable. Reassurance given on no significant changes in blood work, RUQ pain is rib pain, blood pressure is well managed/normal and baby sounds good. Discharge to home with review of preeclampsia sx and plan to follow-up with , as previously scheduled. Recommend return to [facility] given elevated proteinuria. (2) Proteinuria affecting in second trimester: Status: Acute Problem details: Will continue to monitor and co-manage w/ MFM
== END 2020-08-31 21:15 | disposition home or self-care (01) ==
PROVIDERS: Admitting Provider Nurse Practitioner Obstetrics & Gynecology; PCP Family Medicine; Referring Provider Nurse Practitioner Obstetrics & Gynecology; Visit Provider Nurse Practitioner Obstetrics & Gynecology
DX: O10.912 Unspecified pre-existing hypertension complicating pregnancy, second trimester (principal); O12.12 Gestational proteinuria, second trimester; R07.81 Pleurodynia; Z3A.26 26 weeks gestation of pregnancy
CPT/HCPCS: 36415; 84450; 84550; 85025; G0378; G0379

== ENCOUNTER → 2020-09-08 13:56 | Outpatient (CLI) | payer OTHER, MEDICAID, SELFPAY ==
[2020-09-08 15:26] LABS: Hematocrit 33.4 % (36-46); Hemoglobin 11.4 g/dL (12.0-16.0)
[2020-09-08 15:40] LABS: GTT (PREG) 1 Hour PP 50gm Dose 140 mg/dL (76-139)
[2020-09-08 16:08] LABS: Free T4, Direct Thyroxine 0.64 ng/dL (0.78-2.19)
[2020-09-08 16:22] LABS: Thyroid Stimulating Hormone 2.73 uIU/mL (0.47-4.68)
== END ==
PROVIDERS: PCP Family Medicine; Referring Provider Obstetrics & Gynecology; Visit Provider Obstetrics & Gynecology
DX: Z34.02 Encounter for supervision of normal first pregnancy, second trimester (principal); Z3A.26 26 weeks gestation of pregnancy; E03.9 Hypothyroidism, unspecified
CPT/HCPCS: 36415; 82950; 84439; 84443; 85014; 85018

== ENCOUNTER 2020-09-10 12:13 | Outpatient (CLI) | payer OTHER, MEDICAID, SELFPAY ==
[2020-09-10 12:43] LABS: Add Manual Diff / Slide Review NO; Basophils Absolute Auto 100 /uL (0-100); Basophils Percent Auto 0.5 % (0-2); Eosinophils Absolute Auto 100 /uL (0-450); Eosinophils Percent Auto 0.7 % (2-4); Hematocrit 32.9 % (36-46); Lymphocytes Absolute Auto 1400 /uL (1100-4500); Lymphocytes Percent Auto 10.8 % (25-40); Mean Corpuscular HGB Conc 33.6 % (30-36); Mean Corpuscular Hemoglobin 29.9 PG (26-34); Mean Corpuscular Volume 89.1 fL (80-100); Monocytes Absolute Auto 900 /uL (0-900); Monocytes Percent Auto 6.7 % (3-14); Neutrophils Absolute Auto 10600 /uL (1500-7000); Neutrophils Percent Auto 81.3 % (50-75); Platelet Count 202 X10^3/uL (150-400); Red Blood Cell Count 3.69 X10^6/uL (4.0-5.2); White Blood Cell Count 13.1 X10^3/uL (4.5-11.0)
[2020-09-10 12:53] LABS: Aspartate Aminotransferase 23 IU/L (14-36); BUN Creatinine Ratio 19.4 (6-22); Blood Urea Nitrogen 7 mg/dL (7-17); Estimated Glomerular Filt Rate > 60.0 mL/min (>60); Uric Acid 5.6 mg/dL (2.5-6.2)
--- NOTE | 2020-09-10 12:56 | P.TNLD_ITS ---
Visit Information Visit Information Date of evaluation: 09/10/20 Primary OB Provider: Daisy Aldana Reason for Evaluation: Yes non-stress test Comments/Additional reasons for admission: Scheduled testing for gHTN vs pr eeclampsia, no severe features today. Vital Signs Vital Signs: 133/64, 122/64 [facility] Medical History Acute headache Anxiety (11/16/15) Asthma (~1997) Bilateral carpal tunnel syndrome Bronchitis (~1999) Depression (11/16/15) Gestational hypertension Hemoptysis Hypercholesteremia (~01/2020) Hypertension (~01/2020) Pneumonia (~1999) Right knee sprain Stye Tailbone injury (~1999) Tibia fracture (~2017) Vasovagal reaction (~2016) Whiplash injuries Family History Brother Age: 23 Bipolar affective disorder, remission status unspecified Father Age: 57 Type 2 diabetes mellitus without complication, unspecified terminal block assembler insulin use status Heart disease Essential hypertension Hyperlipidemia Cancer Myocardial infarction High threshold of implanted defibrillator Grandmother Cancer Smoker Mental health problem Mother Age: 55 Mental health problem Hypothyroid PTSD (post-traumatic stress disorder) Factor V deficiency, congenital Grandmother Type 2 diabetes mellitus without complication, unspecified terminal block assembler insulin use status Mental health problem Sister Age: 32 Bipolar affective disorder, remission status unspecified Heart murmur Congenital heart defect Factor V deficiency, congenital Sister Age: 26 Adrenal gland disorder Hypothyroid Congenital adrenal hyperplasia PCOS (polycystic ovarian syndrome) Migraines Grandfather Cancer Smoker Grandfather Myocardial infarction Family/Other Schizophrenia Family estrangement Social History marital status: unmarried,living together household members: significant other lives independently: Yes caregiver/support person: No housing: other (Live in in [place] in [place].) pets and animals: Yes (2 dog (aware, dogs are very gentle w kids)) education level: high school (Did not finish high school. Wants to get GED. 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 She will avoid. ) alcohol intake: former (~2 drinks per week, formerly when not . None since conception. ) substance use type: marijuana (Stopped with diagnosis. ) during the past year weight has: increased > 10 lbs well-balanced diet: daily or most days daily servings fruits/ve-4 caffeine: Yes (One 12 oz breve latte daily. Aware of 200 mg precautions. ) Type(s) of exercise: walking frequency: 1-2 times per week duration: 30-45 minutes/day Objective Labs Result Diagrams: 09/10/20 12:34 09/10/20 12:34 Labs: Laboratory Results - last 24 hr 09/10/20 09/10/20 12:34 12:34 WBC 13.1 H RBC 3.69 L Hgb 11.0 L Hct 32.9 L MCV 89.1 MCH 29.9 MCHC 33.6 RDW 13.0 Plt Count 202 Neut % (Auto) 81.3 H Lymph % (Auto) 10.[address] [place] % (Auto) 6.7 Eos % (Auto) 0.7 L Baso % (Auto) 0.5 Neut # (Auto) 64037 H Lymph # (Auto) 1400 [place] # (Auto) 900 Eos # (Auto) 100 Baso # (Auto) 100 BUN 7 Creatinine 0.36 L Estimated GFR > 60.0 BUN/Creatinine Ratio 19.4 Uric Acid 5.6 AST 23 Evaluation Evaluation Baseline heart rate: 140 Variability: Marked (>25) monitor accelerations: Present Monitor Decelerations: Absent Category of Tracing: Reactive Status: Category l Laboratory results: Laboratory Tests 09/10/20 09/10/20 12:34 12:34 WBC 13.1 H RBC 3.69 L Hgb 11.0 L Hct 32.9 L MCV 89.1 MCH 29.9 MCHC 33.6 RDW 13.0 Plt Count 202 Neut % (Auto) 81.3 H Lymph % (Auto) 10.[address] % (Auto) 6.7 Eos % (Auto) 0.7 L Baso % (Auto) 0.5 Neut # (Auto) 52463 H Lymph # (Auto) 1400 [place] # (Auto) 900 Eos # (Auto) 100 Baso # (Auto) 100 BUN 7 Creatinine 0.36 L Estimated GFR > 60.0 BUN/Creatinine Ratio 19.4 Uric Acid 5.6 AST 23 Diagnosis, Plan/Disposition Plan/Disposition Plan: PI labs drawn, home with precautions and planned M follow up. OB Disposition: home
== END 2020-09-10 12:45 | disposition home or self-care (01) ==
LOC: LABOR 13:02 → OB 09-14 08:55
PROVIDERS: PCP Family Medicine; Referring Provider Obstetrics & Gynecology; Visit Provider Obstetrics & Gynecology
DX: O13.3 Gestational [pregnancy-induced] hypertension without significant proteinuria, third trimester (principal); Z3A.28 28 weeks gestation of pregnancy
CPT/HCPCS: 36415; 59025; 59050; 84450; 84550; 85025; G0378; G0379

== ENCOUNTER → 2020-09-14 06:40 | Outpatient (CLI) | payer OTHER, MEDICAID, SELFPAY ==
[2020-09-14 08:25] LABS: Glucose Fasting Gestational 100 mg/dL (76-95)
[2020-09-14 09:39] LABS: Glucose 1 Hour Gest 207 mg/dL (76-180)
[2020-09-14 10:03] LABS: Glucose 2 Hour Gest 151 mg/dL (76-155)
[2020-09-14 10:14] LABS: Glucose Tol Interp,Gestational INTERPRETATION
[2020-09-14 11:25] LABS: Glucose 3 Hour Gest 109 mg/dL (76-140)
== END ==
PROVIDERS: PCP Family Medicine; Referring Provider Obstetrics & Gynecology; Visit Provider Obstetrics & Gynecology
DX: Z34.02 Encounter for supervision of normal first pregnancy, second trimester (principal); Z3A.28 28 weeks gestation of pregnancy
CPT/HCPCS: 36415; 82951; 82952

== ENCOUNTER → 2020-09-16 10:21 | Outpatient (CLI) | payer OTHER, MEDICAID, SELFPAY ==
--- NOTE | 2020-09-16 11:11 | DIET.PN ---
INITIAL GESTATIONAL DIABETES ASSESSMENT ASSESS:? Ms. Cora Haile is 30 yof with recently diagnosed gestational diabetes, pre-eclampsia, htn, hypothyroid. She is . She just picked up her Reli[employer] meter which we reviewed and demonstrated. Pt will monitor fasting and 1 hr after each meal for 1 week. She admits she has not been very active. She was following a modified keto prior to . ? GHASSAN:?12/01/2020 ? WKS GESTATION:??29 wks ?LABS: FB 1hr: 207 2hr: 151 3hr: 109 ? MEDS: ? DIET:? B: coffee, bagel; eggs w/ toast; leftovers L: power bowls; boiled eggs; cottage cheese; walnuts; fish (modified keto) D: frozen burritos; stir martinez w/ chicken; steak, mash potato, asparagus Sn: pizza rolls, toast ? HT:? 69in ? PRE-PREG WT:? 240lb ? PRE-PREG BMI:??? 35.4 ? CURRENT WT: 260lb ? TOTAL WT GAIN:? 20lb EXERCISE: na NUTRITION DX 1. Altered nutrition related lab values r/t gestational diabetes as evidenced by recent labs (OGGT). INTERVENTION 1. Discussed pathophysiology of gestational diabetes and impact of hormone and nutrition/diet on blood sugar control.? Discussed fed versus non-fed state.? 2. Recommended checking fasting, pre-meal and 1hr post prandial (3x/day).? Discussed goals for glycemic control (<95 FBG, <140 1-hr PP).? 3. Discussed the effect of carbohydrates/protein/fat on blood sugar control.? Stressed importance of consistent carbohydrate intake at each meal and provided instructions for recommended servings/portions of carbohydrates/protein per meal.? Provided pt with educational material. 4. Introduced carbohydrate counting and measuring carbohydrate content via servings sizes and reading nutrition labels.? Provided handouts.? Pt will need further review 5. Discussed importance of meal timing and not going >3 hours between meals.? Provided sample meal schedule for pt.? Pt agreeable.?? 6. Discussed importance a pre-sanchez vitamin and including food sources of calcium, vitamin D, iron and folic acid for baby and mother?s nutrition support. 7. Discussed caffeine intake. Recommend no more than 200 mg/day (1 cup coffee). 8. Discussed rule of 15 for hypoglycemia. 9. Recommend patient purchase Urine Ketone strips and instructed on use and when to contact provider. 10 Recommended patient continue exercise as appropriate per PCP approval. 11. Patient may need medication management, will follow-up with plan of care at next visit after reviewing glucose results.? MONITOR/EVAL: Follow up scheduled X 1 week. Good compliance expected. Review: carb sources, carb counting, portion size, meal timing, BG log, weight.
== END ==
PROVIDERS: PCP Family Medicine; Referring Provider Obstetrics & Gynecology; Visit Provider Obstetrics & Gynecology
DX: O24.419 Gestational diabetes mellitus in pregnancy, unspecified control (principal); O14.93 Unspecified pre-eclampsia, third trimester; O99.283 Endocrine, nutritional and metabolic diseases complicating pregnancy, third trimester; E03.9 Hypothyroidism, unspecified; Z3A.29 29 weeks gestation of pregnancy; Z71.3 Dietary counseling and surveillance
CPT/HCPCS: G0108

== ENCOUNTER 2020-09-17 14:00 | Observation (INO) | payer OTHER, MEDICAID, SELFPAY | END 2020-09-17 14:50 | disposition home or self-care (01) | PROVIDERS: Admitting Provider Obstetrics & Gynecology; PCP Family Medicine; Referring Provider Obstetrics & Gynecology; Visit Provider Obstetrics & Gynecology | DX: O12.13 Gestational proteinuria, third trimester (principal); O24.419 Gestational diabetes mellitus in pregnancy, unspecified control; Z3A.29 29 weeks gestation of pregnancy | CPT/HCPCS: 36415; 59025; 84450; 84550; 85025; G0378; G0379 ==

== ENCOUNTER → 2020-09-17 15:12 | Outpatient (CLI) | payer OTHER, MEDICAID, SELFPAY ==
[2020-09-17 16:28] LABS: Add Manual Diff / Slide Review NO; Basophils Absolute Auto 100 /uL (0-100); Basophils Percent Auto 0.6 % (0-2); Eosinophils Absolute Auto 100 /uL (0-450); Eosinophils Percent Auto 0.7 % (2-4); Hematocrit 31.8 % (36-46); Hemoglobin 11.3 g/dL (12.0-16.0); Lymphocytes Absolute Auto 1500 /uL (1100-4500); Lymphocytes Percent Auto 10.2 % (25-40); Mean Corpuscular HGB Conc 35.3 % (30-36); Mean Corpuscular Hemoglobin 31.3 PG (26-34); Mean Corpuscular Volume 88.4 fL (80-100); Monocytes Absolute Auto 1200 /uL (0-900); Monocytes Percent Auto 8.2 % (3-14); Neutrophils Absolute Auto 12100 /uL (1500-7000); Neutrophils Percent Auto 80.3 % (50-75); Platelet Count 203 X10^3/uL (150-400); Red Cell Distribution Width 13.3 % (11.6-14.8); White Blood Cell Count 15.1 X10^3/uL (4.5-11.0)
[2020-09-17 16:43] LABS: Aspartate Aminotransferase 25 IU/L (14-36); BUN Creatinine Ratio 17.1 (6-22); Blood Urea Nitrogen 7 mg/dL (7-17); Estimated Glomerular Filt Rate > 60.0 mL/min (>60); Uric Acid 5.9 mg/dL (2.5-6.2)
== END ==
PROVIDERS: PCP Family Medicine; Referring Provider Obstetrics & Gynecology; Visit Provider Obstetrics & Gynecology
DX: O12.12 Gestational proteinuria, second trimester (principal)
CPT/HCPCS: 36415; 84450; 84550; 85025

== ENCOUNTER 2020-09-24 15:02 | Outpatient (CLI) | payer OTHER, MEDICAID, SELFPAY ==
[2020-09-24 16:57] LABS: Creatinine Urine Random 73.6 mg/dL; Protein (Total) Urine Random 55 mg/dL (0-12); Protein Creatinine Ratio Urine 0.74 GRAM/24H
--- NOTE | 2020-09-25 10:06 | P.TNLD_ITS ---
Visit Information Visit Information Date of evaluation: 09/24/20 Primary OB Provider: Daisy Aldana Reason for Evaluation: Yes non-stress test Comments/Additional reasons for admission: This patient is a 30-year-old at 30 weeks gestation with a history of preeclampsia without severe features, GDM A1, factor 5 heterozygote, and hypothyroidism, presenting for scheduled testing. 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 insulin use status Heart disease Essential hypertension Hyperlipidemia Cancer Myocardial infarction High threshold of implanted defibrillator Grandmother Cancer Smoker Mental health problem Mother Age: 55 Mental health problem Hypothyroid PTSD (post-traumatic stress disorder) Factor V deficiency, congenital Grandmother Type 2 diabetes mellitus without complication, unspecified termination clerk insulin use status Mental health problem Sister Age: 32 Bipolar affective disorder, remission status unspecified Heart murmur Congenital heart defect Factor V deficiency, congenital Sister Age: 26 Adrenal gland disorder Hypothyroid Congenital adrenal hyperplasia PCOS (polycystic ovarian syndrome) Migraines Grandfather Cancer Smoker Grandfather Myocardial infarction Family/Other Schizophrenia Family estrangement Social History marital status: unmarried,living together household members: significant other lives independently: Yes caregiver/support person: No housing: other (Live in in permanent park in [place].) pets and animals: Yes (2 dog (aware, dogs are very gentle w kids)) education level: high school (Did not finish high school. Wants to get GED. 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 She will avoid. ) alcohol intake: former (~2 drinks per week, formerly when not . None since conception. ) substance use type: marijuana (Stopped with diagnosis. ) during the past year weight has: increased > 10 lbs well-balanced diet: daily or most days daily servings fruits/ve-4 caffeine: Yes (One 12 oz breve latte daily. Aware of 200 mg precautions. ) Type(s) of exercise: walking frequency: 1-2 times per week duration: 30-45 minutes/day Objective Labs Labs: Laboratory Results - last 24 hr 09/24/20 16:10 U Random Total Protein 55 H Urine Creatinine 73.6 Protein/Creatinin Ratio 0.74 Evaluation Evaluation Baseline heart rate: 135 Variability: Moderate (11-25) monitor accelerations: Present Monitor Decelerations: Absent Category of Tracing: Reactive Status: Category l Laboratory results: Laboratory Tests 09/24/20 16:10 U Random Total Protein 55 H Urine Creatinine 73.6 Protein/Creatinin Ratio 0.74 Diagnosis, Plan/Disposition Plan/Disposition Plan: Patient to proceed to clinic visit. Preeclampsia labs to be drawn after visit. OB Disposition: home
== END 2020-09-24 16:15 | disposition home or self-care (01) ==
LOC: LABOR 15:56 → OB 09-27 08:29
PROVIDERS: PCP Family Medicine; Referring Provider Obstetrics & Gynecology; Visit Provider Obstetrics & Gynecology
DX: O24.013 Pre-existing type 1 diabetes mellitus, in pregnancy, third trimester (principal); O13.2 Gestational [pregnancy-induced] hypertension without significant proteinuria, second trimester; Z3A.30 30 weeks gestation of pregnancy
CPT/HCPCS: 36415; 59025; 82570; 84156; 84450; 84550; 85025; G0378; G0379

== ENCOUNTER → 2020-09-24 16:27 | Outpatient (CLI) | payer OTHER, MEDICAID, SELFPAY ==
[2020-09-24 16:50] LABS: Add Manual Diff / Slide Review NO; Basophils Absolute Auto 0 /uL (0-100); Basophils Percent Auto 0.3 % (0-2); Eosinophils Absolute Auto 100 /uL (0-450); Hematocrit 34.1 % (36-46); Hemoglobin 11.8 g/dL (12.0-16.0); Lymphocytes Absolute Auto 1900 /uL (1100-4500); Lymphocytes Percent Auto 12.6 % (25-40); Mean Corpuscular HGB Conc 34.6 % (30-36); Mean Corpuscular Hemoglobin 30.4 PG (26-34); Mean Corpuscular Volume 87.9 fL (80-100); Monocytes Absolute Auto 1300 /uL (0-900); Monocytes Percent Auto 8.3 % (3-14); Neutrophils Absolute Auto 11900 /uL (1500-7000); Neutrophils Percent Auto 77.8 % (50-75); Platelet Count 211 X10^3/uL (150-400); Red Blood Cell Count 3.88 X10^6/uL (4.0-5.2); Red Cell Distribution Width 13.2 % (11.6-14.8); White Blood Cell Count 15.2 X10^3/uL (4.5-11.0)
[2020-09-24 17:05] LABS: Aspartate Aminotransferase 25 IU/L (14-36); BUN Creatinine Ratio 20.5 (6-22); Blood Urea Nitrogen 8 mg/dL (7-17); Estimated Glomerular Filt Rate > 60.0 mL/min (>60); Uric Acid 5.1 mg/dL (2.5-6.2)
== END ==
PROVIDERS: PCP Family Medicine; Referring Provider Obstetrics & Gynecology; Visit Provider Obstetrics & Gynecology
DX: O12.12 Gestational proteinuria, second trimester (principal); O13.2 Gestational [pregnancy-induced] hypertension without significant proteinuria, second trimester
CPT/HCPCS: 36415; 84450; 84550; 85025

== ENCOUNTER 2020-10-01 12:34 | Outpatient (CLI) | payer OTHER, MEDICAID, SELFPAY | END 2020-10-01 13:03 | disposition home or self-care (01) | LOC: LABOR 12:50 → OB 10-04 06:50 | PROVIDERS: PCP Family Medicine; Referring Provider Obstetrics & Gynecology; Visit Provider Obstetrics & Gynecology | DX: O14.93 Unspecified pre-eclampsia, third trimester (principal); Z3A.31 31 weeks gestation of pregnancy; O26.893 Other specified pregnancy related conditions, third trimester; R31.9 Hematuria, unspecified | CPT/HCPCS: 36415; 59025; 84450; 84550; 85025; 87086; G0378; G0379 ==

== ENCOUNTER → 2020-10-01 13:04 | Outpatient (CLI) | payer OTHER, MEDICAID, SELFPAY ==
[2020-10-01 13:55] LABS: Add Manual Diff / Slide Review NO; Basophils Absolute Auto 100 /uL (0-100); Basophils Percent Auto 0.4 % (0-2); Eosinophils Absolute Auto 0 /uL (0-450); Eosinophils Percent Auto 0.4 % (2-4); Hematocrit 32.7 % (36-46); Hemoglobin 11.2 g/dL (12.0-16.0); Lymphocytes Absolute Auto 1400 /uL (1100-4500); Lymphocytes Percent Auto 10.6 % (25-40); Mean Corpuscular HGB Conc 34.2 % (30-36); Mean Corpuscular Hemoglobin 30.4 PG (26-34); Mean Corpuscular Volume 88.7 fL (80-100); Monocytes Absolute Auto 700 /uL (0-900); Monocytes Percent Auto 5.2 % (3-14); Neutrophils Absolute Auto 10800 /uL (1500-7000); Neutrophils Percent Auto 83.4 % (50-75); Platelet Count 196 X10^3/uL (150-400); Red Blood Cell Count 3.69 X10^6/uL (4.0-5.2); Red Cell Distribution Width 13.3 % (11.6-14.8)
[2020-10-01 14:08] LABS: Aspartate Aminotransferase 29 IU/L (14-36); BUN Creatinine Ratio 15.1 (6-22); Blood Urea Nitrogen 8 mg/dL (7-17); Estimated Glomerular Filt Rate > 60.0 mL/min (>60); Uric Acid 6.6 mg/dL (2.5-6.2)
== END ==
PROVIDERS: PCP Family Medicine; Referring Provider Obstetrics & Gynecology; Visit Provider Obstetrics & Gynecology
DX: O14.93 Unspecified pre-eclampsia, third trimester (principal); O26.893 Other specified pregnancy related conditions, third trimester; R31.9 Hematuria, unspecified; Z3A.31 31 weeks gestation of pregnancy
CPT/HCPCS: 36415; 84450; 84550; 85025; 87086

== ENCOUNTER 2020-10-03 11:48 | Emergency (ER) | payer OTHER, MEDICAID, SELFPAY ==
[2020-10-03 11:56] VITALS: BP 135/79; PULSE 94; RESP 22; TEMP 36.8; O2SAT 96; BMI 37.6
[2020-10-03 12:29] LABS: COVID19 -Nasal RAPID Negative (Negative)
[2020-10-03] MEDS: SODIUM CHLORIDE 0.9% 1,000 ML 1000 ML IV (13:05)
[2020-10-03 13:31] LABS: Add Manual Diff / Slide Review NO; Basophils Absolute Auto 100 /uL (0-100); Basophils Percent Auto 0.7 % (0-2); Eosinophils Absolute Auto 100 /uL (0-450); Eosinophils Percent Auto 0.7 % (2-4); Hematocrit 33.4 % (36-46); Hemoglobin 11.4 g/dL (12.0-16.0); Lymphocytes Absolute Auto 1500 /uL (1100-4500); Lymphocytes Percent Auto 12.4 % (25-40); Mean Corpuscular HGB Conc 34.1 % (30-36); Mean Corpuscular Hemoglobin 30.1 PG (26-34); Mean Corpuscular Volume 88.1 fL (80-100); Monocytes Absolute Auto 900 /uL (0-900); Monocytes Percent Auto 7.2 % (3-14); Neutrophils Absolute Auto 9500 /uL (1500-7000); Platelet Count 182 X10^3/uL (150-400); Red Blood Cell Count 3.79 X10^6/uL (4.0-5.2); Red Cell Distribution Width 13.4 % (11.6-14.8); White Blood Cell Count 12.1 X10^3/uL (4.5-11.0)
[2020-10-03 13:42] LABS: Alanine Aminotransferase 26 IU/L (<35); Albumin 4.1 g/dL (3.5-5.0); Albumin Globulin Ratio 1.1 (1.0-2.8); Alkaline Phosphatase 139 U/L (38-126); Aspartate Aminotransferase 27 IU/L (14-36); Bilirubin Total 0.2 mg/dL (0.2-1.3); Blood Urea Nitrogen 8 mg/dL (7-17); Calcium 10.1 mg/dL (8.4-10.2); Carbon Dioxide 23 mmol/L (22-32); Chloride 104 mmol/L (98-107); Estimated Glomerular Filt Rate > 60.0 mL/min (>60); Globulin 3.6 g/dL (1.7-4.1); Glucose 87 mg/dL (70-100); HEMOLYSIS < 15 (0-50); Potassium 3.8 mmol/L (3.4-5.1); Sodium 135 mmol/L (137-145); Total Protein 7.7 g/dL (6.3-8.2)
--- NOTE | 2020-10-03 13:44 | ED.URI ---
HPI - URI/Sore Throat General Chief Complaint: Upper Respiratory Symptoms Stated Complaint: Covid symptoms/Needs test Time Seen by Provider: 10/03/20 13:28 Source: patient Mode of arrival: Ambulatory Limitations: no limitations History of Present Illness HPI Narrative: Patient is a 30-year-old female who is at 32 weeks presenting with upper respiratory like symptoms and fever of 101 this amqq. It has been ongoing for the last 2 days. She has some sinus congestion dry nonproductive cough, scratchy sore throat generalized weakness. Rule she has had no known exposure to COVID that she knows of. They are selling their house it was shown 2 days ago when she started her symptoms she wiped everything down in the house afterwards she was not present for the showings. She also has been recently diagnosed with preeclampsia MD Complaint: fever, cough, sore throat, nasal congestion and sinus pain Onset (ago): day(s) (2) Duration: constant Relieving factors: nothing Related Data Home Medications Medication Instructions Recorded Confirmed albuterol sulfate [ProAir HFA] 2 puff INHALATION Q4H PRN 04/03/19 07/26/20 epinephrine 0.3 mg/0.3 mL SUBCUT 03/12/20 07/26/20 injection, auto-injector prenat.vits,ata,[id number] 1 tab PO DAILY 04/29/20 07/26/20 Previous Rx's Medication Instructions Recorded fluticasone propionate 50 2 spray NASAL DAILY #18.2 ml 02/15/20 mcg/actuation nasal spray,suspension ondansetron 4 mg disintegrating 4 mg PO Q6H PRN #60 tab 04/29/20 tablet levothyroxine 100 mcg tablet 100 mcg PO DAILY #90 tab 07/28/20 labetalol 100 mg tablet 100 mg PO BID #60 tab 08/12/20 enoxaparin 300 mg/3 mL 40 mg SUBCUT DAILY #12 ml 08/20/20 subcutaneous solution levothyroxine 125 mcg tablet 125 mcg PO DAILY #30 tab 09/10/20 blood sugar diagnostic #120 ea 09/14/20 blood-glucose meter #1 ea 09/14/20 lancets #120 ea 09/14/20 cefdinir 300 mg PO Q12H #14 cap 10/03/20 Allergies Allergy/AdvReac Type Severity Reaction Status Date / Time No Known Drug Allergies Allergy Verified 10/03/20 11:56 Review of Systems Review of Systems ROS Unobtainable: All systems reviewed & are unremarkable except as noted in HPI and below Constitutional Constitutional: Reports body ache(s), Reports chills, Reports fatigue, Reports fever(s) and Reports headache(s) ENT Ears, Nose, Mouth, and Throat: Reports as per HPI, Denies dizziness, Reports facial pain, Reports headache(s) and Reports nasal congestion Cardiovascular Cardiovascular: Denies chest pain, Denies syncope, Denies irregular heart rhythm, Denies lightheadedness, Denies palpitations, Denies dyspnea and Denies orthopnea Respiratory Respiratory: Denies chest congestion, Reports cough and Denies dyspnea Gastrointestinal Gastrointestinal: Denies abdominal pain, Denies change in bowel habits, Denies diarrhea, Denies nausea and Denies vomiting Musculoskeletal Musculoskeletal: Reports myalgias and Denies muscle cramps Integumentary/Breasts Skin/Breast: Denies pruritus, Denies erythema, Denies rash and Denies wounds Neurologic Neurologic: Denies dizziness, Denies syncope and Reports headache(s) Endocrine Endocrine: Reports fatigue and Denies palpitations Patient History Medical History Acute headache Anxiety (11/16/15) Asthma (~1997) Bilateral carpal tunnel syndrome Bronchitis (~1999) Depression (11/16/15) Gestational hypertension Hemoptysis Hypercholesteremia (~01/2020) Hypertension (~01/2020) Pneumonia (~1999) Right knee sprain Stye Tailbone injury (~1999) Tibia fracture (~2017) Vasovagal reaction (~2016) Whiplash injuries Family History Brother Age: 23 Bipolar affective disorder, remission status unspecified Father Age: 57 Type 2 diabetes mellitus without complication, 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 insulin use status Heart disease Essential hypertension Hyperlipidemia Cancer Myocardial infarction High threshold of implanted defibrillator Grandmother Cancer Smoker Mental health problem Mother Age: 55 Mental health problem Hypothyroid PTSD (post-traumatic stress disorder) Factor V deficiency, congenital Grandmother Type 2 diabetes mellitus without complication, unspecified detention insulin use status Mental health problem Sister Age: 32 Bipolar affective disorder, remission status unspecified Heart murmur Congenital heart defect Factor V deficiency, congenital Sister Age: 26 Adrenal gland disorder Hypothyroid Congenital adrenal hyperplasia PCOS (polycystic ovarian syndrome) Migraines Grandfather Cancer Smoker Grandfather Myocardial infarction Family/Other Schizophrenia Family estrangement Social History marital status: unmarried,living together household members: significant other lives independently: Yes caregiver/support person: No housing: other (Live in in [place] in [place].) pets and animals: Yes (2 dog (aware, dogs are very gentle w kids)) education level: high school (Did not finish high school. Wants to get GED. 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 She will avoid. ) alcohol intake: former (~2 drinks per week, formerly when not . None since conception. ) substance use type: marijuana (Stopped with diagnosis. ) during the past year weight has: increased > 10 lbs well-balanced diet: daily or most days daily servings fruits/ve-4 caffeine: Yes (One 12 oz breve latte daily. Aware of 200 mg precautions. ) Type(s) of exercise: walking frequency: 1-2 times per week duration: 30-45 minutes/day Smoking Status: Never smoker alcohol intake frequency: holidays/special occasions only Substance Use Type: marijuana Exam Initial Vital Signs Initial Vital Signs: Vital Signs Temperature 98.3 F 10/03/20 11:56 Pulse Rate 94 H 10/03/20 11:56 Respiratory Rate 22 10/03/20 11:56 Blood Pressure 135/79 10/03/20 11:56 Pulse Oximetry 96 10/03/20 11:56 GENERAL: Alert pleasant 30-year-old female and in no acute distress. HEENT: Head atraumatic,EOMI, pupils reactive, face symmetric, moist mucous membranes, neck is supple EARS: Tympanic membranes visualized, no erythema or bulging, no hemotympanum PHARYNX: No erythema, no tonsillar exudate, no cervical lymphadenopathy CARDIOVASCULAR: Regular rate and rhythm without murmurs, rubs or gallops. RESPIRATORY: Breath sounds equal bilaterally, no wheezes rales or rhonchi. Speaks in full sentences bilaterally ABDOMEN: Soft, gravid nontender EXTREMITIES: Normal range of motion, no clubbing or edema. Neurovascularly intact NEUROLOGICAL: Alert and oriented x4.Normal gait and speech. SKIN: Warm, dry, no laceration, no petechiae, no rashes or lesions. Course Orders Ordered: ED Orders 10/03/20 12:06 COVID19 -Nasal swab/Pre-Proc Stat 10/03/20 13:10 Complete Blood Count AUTO DIFF Stat Comprehensive Metabolic Panel Stat Urinalysis and Microscopic Stat Urine Culture Stat 10/03/20 14:03 Respiratory Panel (Film Array) Stat Discontinued Medications Cefdinir (Cefdinir 300 Mg Capsule) 300 mg PO NOW ONE Stop: 10/03/20 16:58 Last Admin: 10/03/20 17:05 Dose: 300 mg Documented by: [email or web address] Sodium Chloride (Normal Saline 0.9%) 1,000 mls @ 1,000 mls/hr IV BOLUS ONE Stop: 10/03/20 13:20 Last Infusion: 10/03/20 14:09 Dose: 0 mls/hr Documented by: [email or web address] Admin: 10/03/20 13:05 Dose: 1,000 mls/hr Documented by: [email or web address] Vital Signs Vital signs: Vital Signs - 8 hr 10/03/20 11:56 10/03/20 14:51 10/03/20 17:14 Temperature 98.3 F 98.1 F Pulse Rate 94 H 71 87 Respiratory Rate 22 18 Blood Pressure 135/79 119/70 119/81 Pulse Oximetry 96 98 97 MDM - URI/Sore Throat Lab Data Attestation: I reviewed the patient's lab results. Result diagrams: 10/03/20 13:10 10/03/20 13:10 Labs: Lab Results 10/03/20 10/03/20 10/03/20 Range/Units 12:06 13:10 13:10 WBC 12.1 H (4.5-11.0) X10^3/uL RBC 3.79 L (4.0-5.2) X10^6/uL Hgb 11.4 L (12.0-16.0) g/dL Hct 33.4 L (36-46) % MCV 88.1 (80-100) fL MCH 30.1 (26-34) PG MCHC 34.1 (30-36) % RDW 13.4 (11.6-14.8) % Plt Count 182 (150-400) X10^3/uL Neut % (Auto) 79.0 H (50-75) % Lymph % (Auto) 12.4 L (25-40) % [place] % (Auto) 7.2 (3-14) % Eos % (Auto) 0.7 L (2-4) % Baso % (Auto) 0.7 (0-2) % Neut # (Auto) 9500 H (5004-9450) /uL Lymph # (Auto) 1500 (6298-2701) /uL [place] # (Auto) 900 (0-900) /uL Eos # (Auto) 100 (0-450) /uL Baso # (Auto) 100 (0-100) /uL Sodium 135 L (137-145) mmol/L Potassium 3.8 (3.4-5.1) mmol/L Chloride 104 (98-107) mmol/L Carbon Dioxide 23 (22-32) mmol/L BUN 8 (7-17) mg/dL Creatinine 0.42 L (0.52-1.04) mg/dL Estimated GFR > 60.0 (>60) mL/min BUN/Creatinine Ratio 19.0 (6-22) Glucose 87 (70-100) mg/dL Calcium 10.1 (8.4-10.2) mg/dL Total Bilirubin 0.2 (0.2-1.3) mg/dL AST 27 (14-36) IU/L ALT 26 (<35) IU/L Alkaline Phosphatase 139 H (38-126) U/L Total Protein 7.7 (6.3-8.2) g/dL Albumin 4.1 (3.5-5.0) g/dL Globulin 3.6 (1.7-4.1) g/dL Albumin/Globulin Ratio 1.1 (1.0-2.8) Urine Color Urine Appearance Urine pH (4.5-8.0) Ur Specific [place] (1.000-1.035) Urine Protein (Negative) Urine Glucose (UA) (Negative) g/dL Urine Ketones (NEGATIVE) Urine Occult Blood (Negative) Urine Nitrate (Negative) Urine Bilirubin (NEGATIVE) Urine Urobilinogen (0.2) E.U./dL Ur Leukocyte Esterase (NEGATIVE) Urine RBC (0-5/HPF) Urine WBC (0-5/HPF) Ur Squamous Epith Cells (0-5/HPF) Amorphous Sediment Urine Bacteria (None) Ur Culture Indicated? Chlamy pneumoniae PCR (Not Detect) Adenovirus (PCR) (Not Detect) B. pertussis DNA (PCR) (Not Detecte) B.parapertussis DNA PCR (Not Detecte) Coronavirus OC43 (PCR) (Not Detect) Coronavirus HKU1 (PCR) (Not Detect) Coronavirus 229E (PCR) (Not Detect) SARS-CoV-2 (PCR) Negative (Negative) Coronavirus NL63 (PCR) (Not Detect) Human Metapneumovir PCR (Not Detect) Influenza Type A (PCR) (Not Detect) Influenza Type B (PCR) (Not Detect) M. pneumoniae (PCR) (Not Detect) Parainfluenza 1 (PCR) (Not Detect) Parainfluenza 2 (PCR) (Not Detect) Parainfluenza 3 (PCR) (Not Detect) Parainfluenza 4 (PCR) (Not Detect) RSV (PCR) (Not Detect) Entero/Rhino (PCR) (Not Detect) 10/03/20 10/03/20 Range/Units 13:10 14:03 WBC (4.5-11.0) X10^3/uL RBC (4.0-5.2) X10^6/uL Hgb (12.0-16.0) g/dL Hct (36-46) % MCV (80-100) fL MCH (26-34) PG MCHC (30-36) % RDW (11.6-14.8) % Plt Count (150-400) X10^3/uL Neut % (Auto) (50-75) % Lymph % (Auto) (25-40) % [place] % (Auto) (3-14) % Eos % (Auto) (2-4) % Baso % (Auto) (0-2) % Neut # (Auto) (7716-9445) /uL Lymph # (Auto) (0053-9851) /uL [place] # (Auto) (0-900) /uL Eos # (Auto) (0-450) /uL Baso # (Auto) (0-100) /uL Sodium (137-145) mmol/L Potassium (3.4-5.1) mmol/L Chloride (98-107) mmol/L Carbon Dioxide (22-32) mmol/L BUN (7-17) mg/dL Creatinine (0.52-1.04) mg/dL Estimated GFR (>60) mL/min BUN/Creatinine Ratio (6-22) Glucose (70-100) mg/dL Calcium (8.4-10.2) mg/dL Total Bilirubin (0.2-1.3) mg/dL AST (14-36) IU/L ALT (<35) IU/L Alkaline Phosphatase (38-126) U/L Total Protein (6.3-8.2) g/dL Albumin (3.5-5.0) g/dL Globulin (1.7-4.1) g/dL Albumin/Globulin Ratio (1.0-2.8) Urine Color Yellow Urine Appearance Sl cloudy Urine pH 7.0 (4.5-8.0) Ur Specific [place] 1.015 (1.000-1.035) Urine Protein 1+ H (Negative) Urine Glucose (UA) Negative (Negative) g/dL Urine Ketones Negative (NEGATIVE) Urine Occult Blood 2+ H (Negative) Urine Nitrate Negative (Negative) Urine Bilirubin Negative (NEGATIVE) Urine Urobilinogen 0.2 (0.2) E.U./dL Ur Leukocyte Esterase 1+ H (NEGATIVE) Urine RBC 5-10/hpf H (0-5/HPF) Urine WBC 5-10/hpf H (0-5/HPF) Ur Squamous Epith Cells 5-10 /hpf H (0-5/HPF) Amorphous Sediment 1+ Urine Bacteria Moderate (10-30) H (None) Ur Culture Indicated? Specimen cultured Chlamy pneumoniae PCR Not detected (Not Detect) Adenovirus (PCR) Not detected (Not Detect) B. pertussis DNA (PCR) Not detected (Not Detecte) B.parapertussis DNA PCR Not detected (Not Detecte) Coronavirus OC43 (PCR) Not detected (Not Detect) Coronavirus HKU1 (PCR) Not detected (Not Detect) Coronavirus 229E (PCR) Not detected (Not Detect) SARS-CoV-2 (PCR) Not detected (Negative) Coronavirus NL63 (PCR) Not detected (Not Detect) Human Metapneumovir PCR Not detected (Not Detect) Influenza Type A (PCR) Not detected (Not Detect) Influenza Type B (PCR) Not detected (Not Detect) M. pneumoniae (PCR) Not detected (Not Detect) Parainfluenza 1 (PCR) Not detected (Not Detect) Parainfluenza 2 (PCR) Not detected (Not Detect) Parainfluenza 3 (PCR) Not detected (Not Detect) Parainfluenza 4 (PCR) Not detected (Not Detect) RSV (PCR) Not detected (Not Detect) Entero/Rhino (PCR) Not detected (Not Detect) MDM Narrative Medical decision making narrative: Patient is having upper respiratory like symptoms. Initial COVID is negative however will add respiratory panel. Lungs are clear no significant tachypnea or shortness of breath at this time not think chest x-ray is needed. Patient is having frequent urination urine does show bacteria and leukocytes 0. At this time will treat with cefdinir to cover both pneumonia and UTI. I have updated Dr. Johnson on plan head patient's test results at this time she agrees. Would still like patient to go to [facility] to have non stress test in follow-up with her OB this week. Discharge Plan Departure Patient Disposition: Home Clinical Impression: UTI (urinary tract infection) Qualifiers: Urinary tract infection type: acute cystitis Hematuria presence: with hematuria Qualified Code(s): N30.01 - Acute cystitis with hematuria Instructions: DI for Urinary Tract Infection (UTI) Activity Restrictions/Additional Instructions: *You have been diagnosed with UTI *What to do: You to have a bladder infection however the antibiotic will also cover a pneumonia. Chest x-ray was not done today. You do not have COVID. Please go to [facility] for a nonstress test *Continue to take medications as directed Cefdinir 300 mg twice a day for 7 days--> SENT TO [facility] Tylenol 1000 mg every 6 hours if needed for fever or pain *Follow up with your primary care provider in 2-3 days Call your OB tomorrow to schedule follow-up appointment *Return to ER if you should have increasing shortness of breath, abdominal pain, persistent fever or any new, worsening or concerning symptoms Prescriptions: New cefdinir 300 mg capsule 300 mg PO Q12H Qty: 14 RF: 0 No Action labetalol 100 mg tablet 100 mg PO BID Qty: 60 RF: 0 fluticasone propionate [Flonase Allergy Relief] 50 mcg/actuation spray,suspension 2 spray NASAL DAILY Qty: 18.2 RF: 0 levothyroxine 100 mcg tablet 100 mcg PO DAILY Qty: 90 RF: 2 enoxaparin 300 mg/3 mL solution 40 mg SUBCUT DAILY Qty: 12 RF: 11 (DME) blood-glucose meter [Blood Glucose Monitoring] Kit See Rx Instructions .ROUTE .MEDSUPPLY Qty: 1 RF: 0 (DME) Blood Glucose Test Strip See Rx Instructions .ROUTE .MEDSUPPLY Qty: 120 RF: 3 (DME) lancets Misc See Rx Instructions .ROUTE .MEDSUPPLY Qty: 120 RF: 3 epinephrine 0.3 mg/0.3 mL auto-injector SUBCUT RF: 0 prenat.vits,ata,[id number] Tablet 1 tab PO DAILY RF: 0 ondansetron 4 mg tablet,disintegrating 4 mg PO Q6H PRN (Reason: nausea and vomiting) Qty: 60 RF: 1 levothyroxine [Euthyrox] 125 mcg tablet 125 mcg PO DAILY Qty: 30 RF: 4 albuterol sulfate [ProAir HFA] 90 mcg/actuation HFA aerosol inhaler 2 puff INHALATION Q4H PRN (Reason: Shortness Of Breath Or Wheezing) RF: 0 Referrals: Daisy Aldana MD [Physician] - Doug Martin DO [Primary Care Provider] -
[2020-10-03 13:45] LABS: Appearance Urine UA SL CLOUDY; Bilirubin Urine UA NEGATIVE (NEGATIVE); Color Urine UA YELLOW; Glucose Urine UA NEGATIVE (Negative); Ketones Urine UA NEGATIVE (NEGATIVE); Leukocyte Esterase Urine UA 1+ (NEGATIVE); Nitrite Urine UA NEGATIVE (Negative); Occult Blood Urine UA 2+ (Negative); Protein Urine UA 1+ (Negative); Specific Gravity Urine UA 1.015 (1.000-1.035); Urobilinogen Urine UA 0.2 E.U./dL (0.2)
[2020-10-03 13:53] LABS: Amorphous Sediment Urine 1+; Bacteria Urine Moderate (10-30); RBC Urine 5-10/HPF (0-5/HPF); Squamous Epithelial Cell Urine 5-10 /HPF (0-5/HPF); WBC Urine 5-10/HPF (0-5/HPF)
[2020-10-03 13:54] LABS: Culture Indicated Urine Specimen Cultured
[2020-10-03 14:51] VITALS: BP 119/70; PULSE 71; RESP 18; TEMP 36.7; O2SAT 98
[2020-10-03 16:14] LABS: Adenovirus Not Detected (Not Detect); B. parapertussis Not Detected (Not Detecte); Bordetella pertussis Not Detected (Not Detecte); Chlamydophila pneumoniae Not Detected (Not Detect); Coronavirus 229E Not Detected (Not Detect); Coronavirus HKU1 Not Detected (Not Detect); Coronavirus NL 63 Not Detected (Not Detect); Coronavirus OC43 Not Detected (Not Detect); Human Metapneumovirus Not Detected (Not Detect); Human Rhinovirus/Enterovirus Not Detected (Not Detect); Influenza A Not Detected (Not Detect); Influenza B Not Detected (Not Detect); Mycoplasma pneumoniae Not Detected (Not Detect); Parainfluenza Virus 1 Not Detected (Not Detect); Parainfluenza Virus 2 Not Detected (Not Detect); Parainfluenza Virus 3 Not Detected (Not Detect); Parainfluenza Virus 4 Not Detected (Not Detect); Respiratory Syncytial Virus Not Detected (Not Detect); SARS- CoV-2 Not Detected (Not Detecte)
[2020-10-03] MEDS: CEFDINIR 300 MG CAPSULE PO (17:05)
[2020-10-03 17:14] VITALS: BP 119/81; PULSE 87; O2SAT 97
== END 2020-10-03 17:27 | disposition home or self-care (01) ==
PROVIDERS: Emergency Provider Emergency Medicine; PCP Family Medicine
DX: N30.01 Acute cystitis with hematuria (principal)
CPT/HCPCS: 36415; 80053; 81001; 85025; 87086; 87633; 87635; 96360; 99284; C9803

== ENCOUNTER 2020-10-03 17:33 | Outpatient (CLI) | payer OTHER, MEDICAID, SELFPAY | END 2020-10-03 18:00 | disposition home or self-care (01) | LOC: OB 10-04 06:51 | PROVIDERS: PCP Family Medicine; Referring Provider Obstetrics & Gynecology; Visit Provider Obstetrics & Gynecology | DX: O14.93 Unspecified pre-eclampsia, third trimester (principal); Z3A.31 31 weeks gestation of pregnancy | CPT/HCPCS: 59025; G0378; G0379 ==

== ENCOUNTER 2020-10-11 12:52 | Observation (INO) | payer OTHER, MEDICAID, SELFPAY ==
[2020-10-11 13:09] LABS: Add Manual Diff / Slide Review NO; Basophils Absolute Auto 100 /uL (0-100); Basophils Percent Auto 0.5 % (0-2); Eosinophils Absolute Auto 100 /uL (0-450); Eosinophils Percent Auto 0.6 % (2-4); Hematocrit 33.3 % (36-46); Hemoglobin 11.4 g/dL (12.0-16.0); Lymphocytes Absolute Auto 2000 /uL (1100-4500); Lymphocytes Percent Auto 14.4 % (25-40); Mean Corpuscular HGB Conc 34.3 % (30-36); Mean Corpuscular Hemoglobin 30.1 PG (26-34); Monocytes Absolute Auto 800 /uL (0-900); Monocytes Percent Auto 5.6 % (3-14); Neutrophils Absolute Auto 10700 /uL (1500-7000); Neutrophils Percent Auto 78.9 % (50-75); Platelet Count 200 X10^3/uL (150-400); Red Blood Cell Count 3.78 X10^6/uL (4.0-5.2); Red Cell Distribution Width 13.4 % (11.6-14.8); White Blood Cell Count 13.5 X10^3/uL (4.5-11.0)
[2020-10-11 13:34] LABS: Aspartate Aminotransferase 31 IU/L (14-36); BUN Creatinine Ratio 16.7 (6-22); Blood Urea Nitrogen 9 mg/dL (7-17); Estimated Glomerular Filt Rate > 60.0 mL/min (>60); Uric Acid 6.2 mg/dL (2.5-6.2)
--- NOTE | 2020-10-11 19:15 | P.TNLD_ITS ---
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 Vital Signs Vital Signs: 119/61 [facility] Medical History Acute headache Anxiety (11/16/15) Asthma (~1997) Bilateral carpal tunnel syndrome Bronchitis (~1999) Depression (11/16/15) Gestational hypertension Hemoptysis Hypercholesteremia (~01/2020) Hypertension (~01/2020) Pneumonia (~1999) Right knee sprain Stye Tailbone injury (~1999) Tibia fracture (~2017) Vasovagal reaction (~2016) Whiplash injuries Family History Brother Age: 23 Bipolar affective disorder, remission status unspecified Father Age: 57 Type 2 diabetes mellitus without complication, unspecified half-way insulin use status Heart disease Essential hypertension Hyperlipidemia Cancer Myocardial infarction High threshold of implanted defibrillator Grandmother Cancer Smoker Mental health problem Mother Age: 55 Mental health problem Hypothyroid PTSD (post-traumatic stress disorder) Factor V deficiency, congenital Grandmother Type 2 diabetes mellitus without complication, unspecified 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 insulin use status Mental health problem Sister Age: 32 Bipolar affective disorder, remission status unspecified Heart murmur Congenital heart defect Factor V deficiency, congenital Sister Age: 26 Adrenal gland disorder Hypothyroid Congenital adrenal hyperplasia PCOS (polycystic ovarian syndrome) Migraines Grandfather Cancer Smoker Grandfather Myocardial infarction Family/Other Schizophrenia Family estrangement Social History marital status: unmarried,living together household members: significant other lives independently: Yes caregiver/support person: No housing: other (Live in in [place] in [place].) pets and animals: Yes (2 dog (aware, dogs are very gentle w kids)) education level: high school (Did not finish high school. Wants to get GED. 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 She will avoid. ) alcohol intake: former (~2 drinks per week, formerly when not . None since conception. ) substance use type: marijuana (Stopped with diagnosis. ) during the past year weight has: increased > 10 lbs well-balanced diet: daily or most days daily servings fruits/ve-4 caffeine: Yes (One 12 oz breve latte daily. Aware of 200 mg precautions. ) Type(s) of exercise: walking frequency: 1-2 times per week duration: 30-45 minutes/day Objective Labs Result Diagrams: 10/11/20 12:40 10/11/20 12:40 Labs: Laboratory Results - last 24 hr 10/11/20 10/11/20 12:40 12:40 WBC 13.5 H RBC 3.78 L Hgb 11.4 L Hct 33.3 L MCV 88.0 MCH 30.1 MCHC 34.3 RDW 13.4 Plt Count 200 Neut % (Auto) 78.9 H Lymph % (Auto) 14.4 L [place] % (Auto) 5.6 Eos % (Auto) 0.6 L Baso % (Auto) 0.5 Neut # (Auto) 29914 H Lymph # (Auto) 2000 [place] # (Auto) 800 Eos # (Auto) 100 Baso # (Auto) 100 BUN 9 Creatinine 0.54 Estimated GFR > 60.0 BUN/Creatinine Ratio 16.7 Uric Acid 6.2 AST 31 Evaluation Evaluation Baseline heart rate: 135 Variability: Moderate (11-25) monitor accelerations: Present Monitor Decelerations: Absent Category of Tracing: Reactive Status: Category l Laboratory results: Laboratory Tests 10/11/20 10/11/20 12:40 12:40 WBC 13.5 H RBC 3.78 L Hgb 11.4 L Hct 33.3 L MCV 88.0 MCH 30.1 MCHC 34.3 RDW 13.4 Plt Count 200 Neut % (Auto) 78.9 H Lymph % (Auto) 14.4 L [place] % (Auto) 5.6 Eos % (Auto) 0.6 L Baso % (Auto) 0.5 Neut # (Auto) 51239 H Lymph # (Auto) 2000 [place] # (Auto) 800 Eos # (Auto) 100 Baso # (Auto) 100 BUN 9 Creatinine 0.54 Estimated GFR > 60.0 BUN/Creatinine Ratio 16.7 Uric Acid 6.2 AST 31 Diagnosis, Plan/Disposition Plan/Disposition Plan: Home with scheduled precautions. f/u in 3 days. OB Disposition: home
== END 2020-10-11 13:27 | disposition home or self-care (01) ==
LOC: LAB 10-12 08:08 → LABOR 10-12 08:09
PROVIDERS: Admitting Provider Obstetrics & Gynecology; PCP Family Medicine; Referring Provider Obstetrics & Gynecology; Visit Provider Obstetrics & Gynecology
DX: O24.415 Gestational diabetes mellitus in pregnancy, controlled by oral hypoglycemic drugs (principal); O14.93 Unspecified pre-eclampsia, third trimester; Z3A.32 32 weeks gestation of pregnancy; E03.9 Hypothyroidism, unspecified; O14.03 Mild to moderate pre-eclampsia, third trimester; O99.283 Endocrine, nutritional and metabolic diseases complicating pregnancy, third trimester
CPT/HCPCS: 36415; 59025; 84450; 84550; 85025; G0378

== ENCOUNTER 2020-10-19 08:41 | Observation (INO) | payer OTHER, MEDICAID, SELFPAY ==
[2020-10-19 10:38] LABS: Add Manual Diff / Slide Review NO; Basophils Absolute Auto 100 /uL (0-100); Basophils Percent Auto 0.5 % (0-2); Eosinophils Absolute Auto 100 /uL (0-450); Hematocrit 33.5 % (36-46); Hemoglobin 11.5 g/dL (12.0-16.0); Lymphocytes Absolute Auto 1400 /uL (1100-4500); Lymphocytes Percent Auto 13.6 % (25-40); Mean Corpuscular HGB Conc 34.2 % (30-36); Mean Corpuscular Hemoglobin 30.1 PG (26-34); Mean Corpuscular Volume 87.9 fL (80-100); Monocytes Absolute Auto 600 /uL (0-900); Monocytes Percent Auto 6.1 % (3-14); Neutrophils Absolute Auto 8200 /uL (1500-7000); Neutrophils Percent Auto 78.8 % (50-75); Platelet Count 179 X10^3/uL (150-400); Red Blood Cell Count 3.82 X10^6/uL (4.0-5.2); Red Cell Distribution Width 13.5 % (11.6-14.8); White Blood Cell Count 10.5 X10^3/uL (4.5-11.0)
[2020-10-19 10:55] LABS: Alanine Aminotransferase 25 IU/L (<35); Albumin 3.7 g/dL (3.5-5.0); Alkaline Phosphatase 148 U/L (38-126); Aspartate Aminotransferase 30 IU/L (14-36); BUN Creatinine Ratio 16.3 (6-22); Bilirubin Total 0.1 mg/dL (0.2-1.3); Blood Urea Nitrogen 7 mg/dL (7-17); Calcium 9.8 mg/dL (8.4-10.2); Carbon Dioxide 25 mmol/L (22-32); Chloride 104 mmol/L (98-107); Estimated Glomerular Filt Rate > 60.0 mL/min (>60); Globulin 3.6 g/dL (1.7-4.1); Glucose 151 mg/dL (70-100); HEMOLYSIS < 15 (0-50); Potassium 3.7 mmol/L (3.4-5.1); Sodium 135 mmol/L (137-145); Total Protein 7.3 g/dL (6.3-8.2); Uric Acid 6.3 mg/dL (2.5-6.2)
== END 2020-10-19 10:50 | disposition home or self-care (01) ==
PROVIDERS: Family Medicine; Admitting Provider Obstetrics & Gynecology; PCP Family Medicine; Referring Provider Obstetrics & Gynecology; Visit Provider Obstetrics & Gynecology
DX: O14.93 Unspecified pre-eclampsia, third trimester (principal); O24.419 Gestational diabetes mellitus in pregnancy, unspecified control; O99.113 Other diseases of the blood and blood-forming organs and certain disorders involving the immune mechanism complicating pregnancy, third trimester; D68.51 Activated protein C resistance; Z3A.33 33 weeks gestation of pregnancy
CPT/HCPCS: 59025; 80053; 84550; 85025; G0378; G0379

== ENCOUNTER 2020-10-22 11:59 | Outpatient (CLI) | payer OTHER, MEDICAID, SELFPAY | END 2020-10-22 12:50 | disposition home or self-care (01) | LOC: LABOR 12:22 → OB 10-26 07:44 | PROVIDERS: PCP Family Medicine; Referring Provider Obstetrics & Gynecology; Visit Provider Obstetrics & Gynecology | DX: O24.419 Gestational diabetes mellitus in pregnancy, unspecified control (principal); O14.93 Unspecified pre-eclampsia, third trimester; Z3A.34 34 weeks gestation of pregnancy | CPT/HCPCS: 59025; G0378; G0379 ==

== ENCOUNTER 2020-10-26 09:50 | Outpatient (CLI) | payer OTHER, MEDICAID, SELFPAY ==
--- NOTE | 2020-10-26 17:31 | P.TNLD_ITS ---
Visit Information Visit Information Date of evaluation: 10/26/20 Primary OB Provider: Daisy Aldana Reason for Evaluation: Yes non-stress test Comments/Additional reasons for admission: This patient is a 30-year-old at 34 weeks gestation with a complicated by preeclampsia without severe features, GDM A2 on metformin, factor 5 Leiden on Lovenox, and hypothyroidism. Presenting for scheduled NST. 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 insulin use status Heart disease Essential hypertension Hyperlipidemia Cancer Myocardial infarction High threshold of implanted defibrillator Grandmother Cancer Smoker Mental health problem Mother Age: 55 Mental health problem Hypothyroid PTSD (post-traumatic stress disorder) Factor V deficiency, congenital Grandmother Type 2 diabetes mellitus without complication, unspecified 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 insulin use status Mental health problem Sister Age: 32 Bipolar affective disorder, remission status unspecified Heart murmur Congenital heart defect Factor V deficiency, congenital Sister Age: 26 Adrenal gland disorder Hypothyroid Congenital adrenal hyperplasia PCOS (polycystic ovarian syndrome) Migraines Grandfather Cancer Smoker Grandfather Myocardial infarction Family/Other Schizophrenia Family estrangement Social History marital status: unmarried,living together household members: significant other lives independently: Yes caregiver/support person: No housing: other (Live in in [facility] [address] in [place].) pets and animals: Yes (2 dog (aware, dogs are very gentle w kids)) education level: high school (Did not finish high school. Wants to get GED. 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 She will avoid. ) alcohol intake: former (~2 drinks per week, formerly when not . None since conception. ) substance use type: marijuana (Stopped with diagnosis. ) during the past year weight has: increased > 10 lbs well-balanced diet: daily or most days daily servings fruits/ve-4 caffeine: Yes (One 12 oz breve latte daily. Aware of 200 mg precautions. ) Type(s) of exercise: walking frequency: 1-2 times per week duration: 30-45 minutes/day Evaluation Evaluation Baseline heart rate: 125 Variability: Moderate (11-25) monitor accelerations: Present Monitor Decelerations: Absent Category of Tracing: Reactive Status: Category l Diagnosis, Plan/Disposition Plan/Disposition Plan: To clinic for planned BPP. OB Disposition: home
== END 2020-10-26 10:48 | disposition home or self-care (01) ==
LOC: LABOR 10:42 → OB 10-27 07:37
PROVIDERS: PCP Family Medicine; Referring Provider Obstetrics & Gynecology; Visit Provider Obstetrics & Gynecology
DX: O14.03 Mild to moderate pre-eclampsia, third trimester (principal); O24.415 Gestational diabetes mellitus in pregnancy, controlled by oral hypoglycemic drugs; O99.283 Endocrine, nutritional and metabolic diseases complicating pregnancy, third trimester; E03.9 Hypothyroidism, unspecified; Z3A.34 34 weeks gestation of pregnancy
CPT/HCPCS: 36415; 59025; 84450; 84550; 85025; G0378; G0379

== ENCOUNTER → 2020-10-26 10:46 | Outpatient (CLI) | payer OTHER, MEDICAID, SELFPAY ==
[2020-10-26 12:00] LABS: Add Manual Diff / Slide Review NO; Basophils Absolute Auto 0 /uL (0-100); Basophils Percent Auto 0.4 % (0-2); Eosinophils Absolute Auto 100 /uL (0-450); Eosinophils Percent Auto 0.7 % (2-4); Hematocrit 32.9 % (36-46); Lymphocytes Absolute Auto 1800 /uL (1100-4500); Lymphocytes Percent Auto 15.2 % (25-40); Mean Corpuscular HGB Conc 33.5 % (30-36); Mean Corpuscular Hemoglobin 29.7 PG (26-34); Mean Corpuscular Volume 88.7 fL (80-100); Monocytes Absolute Auto 1000 /uL (0-900); Monocytes Percent Auto 8.8 % (3-14); Neutrophils Absolute Auto 8600 /uL (1500-7000); Neutrophils Percent Auto 74.9 % (50-75); Platelet Count 173 X10^3/uL (150-400); Red Blood Cell Count 3.71 X10^6/uL (4.0-5.2); Red Cell Distribution Width 13.8 % (11.6-14.8); White Blood Cell Count 11.5 X10^3/uL (4.5-11.0)
[2020-10-26 12:18] LABS: Aspartate Aminotransferase 30 IU/L (14-36); BUN Creatinine Ratio 20.5 (6-22); Blood Urea Nitrogen 9 mg/dL (7-17); Estimated Glomerular Filt Rate > 60.0 mL/min (>60)
== END ==
PROVIDERS: PCP Family Medicine; Referring Provider Obstetrics & Gynecology; Visit Provider Obstetrics & Gynecology
DX: O14.90 Unspecified pre-eclampsia, unspecified trimester (principal)
CPT/HCPCS: 36415; 84450; 84550; 85025

== ENCOUNTER 2020-10-29 12:03 | Outpatient (CLI) | payer OTHER, MEDICAID, SELFPAY ==
--- NOTE | 2020-10-29 13:13 | P.TNLD_ITS ---
Visit Information Visit Information Date of evaluation: 10/29/20 Primary OB Provider: Daisy Aldana On-call OB Provider: Yennifer Monson Reason for Evaluation: Yes non-stress test non-stress test reason: diabetes and hypertension/pre-eclampsia Comments/Additional reasons for admission: 30-year-old at 35 weeks and 2 days gestation with a complicated by preeclampsia without severe features, GDM A2 on metformin, factor 5 Leiden on Lovenox, and hypothyroidism here for a scheduled NST. Denies complaints today. Vital Signs Vital Signs: Temperature 36.1? 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 insulin use status Heart disease Essential hypertension Hyperlipidemia Cancer Myocardial infarction High threshold of implanted defibrillator Grandmother Cancer Smoker Mental health problem Mother Age: 55 Mental health problem Hypothyroid PTSD (post-traumatic stress disorder) Factor V deficiency, congenital Grandmother Type 2 diabetes mellitus without complication, unspecified intermediate school teacher insulin use status Mental health problem Sister Age: 32 Bipolar affective disorder, remission status unspecified Heart murmur Congenital heart defect Factor V deficiency, congenital Sister Age: 26 Adrenal gland disorder Hypothyroid Congenital adrenal hyperplasia PCOS (polycystic ovarian syndrome) Migraines Grandfather Cancer Smoker Grandfather Myocardial infarction Family/Other Schizophrenia Family estrangement Social History marital status: unmarried,living together household members: significant other lives independently: Yes caregiver/support person: No housing: other (Live in in permanent park in [place].) pets and animals: Yes (2 dog (aware, dogs are very gentle w kids)) education level: high school (Did not finish high school. Wants to get GED. 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 She wi ll avoid. ) alcohol intake: former (~2 drinks per week, formerly when not . None since conception. ) substance use type: marijuana (Stopped with diagnosis. ) during the past year weight has: increased > 10 lbs well-balanced diet: daily or most days daily servings fruits/ve-4 caffeine: Yes (One 12 oz breve latte daily. Aware of 200 mg precautions. ) Type(s) of exercise: walking frequency: 1-2 times per week duration: 30-45 minutes/day Evaluation Evaluation Baseline heart rate: 130 Variability: Moderate (11-25) monitor accelerations: Present Monitor Decelerations: Absent Category of Tracing: Reactive Diagnosis, Plan/Disposition Final Diagnosis (1) 35 weeks gestation of : Status: Acute (2) Pre-eclampsia affecting , antepartum: Status: Acute (3) Gestational diabetes: Status: Acute Plan/Disposition Plan: Reactive NST. Follow up with Dr. Aldana as scheduled. OB Disposition: home
== END 2020-10-29 13:20 | disposition home or self-care (01) ==
LOC: OB 11-01 09:49
PROVIDERS: PCP Family Medicine; Referring Provider Obstetrics & Gynecology; Visit Provider Obstetrics & Gynecology
DX: O14.03 Mild to moderate pre-eclampsia, third trimester (principal); O24.415 Gestational diabetes mellitus in pregnancy, controlled by oral hypoglycemic drugs; Z3A.35 35 weeks gestation of pregnancy
CPT/HCPCS: 59025; G0378; G0379

== ENCOUNTER 2020-11-01 10:40 | Outpatient (CLI) | payer OTHER, MEDICAID, SELFPAY ==
--- NOTE | 2020-11-01 14:04 | PM.OBTRLD ---
Visit Information Visit Information Date of evaluation: 11/01/20 Primary OB Provider: Daisy Aldana Reason for Evaluation: Yes non-stress test Comments/Additional reasons for admission: This patient 30yo @35 weeks gestation with preeclampsia without severe features and GDMA2 on metformin, presenting for a scheduled NST. Vital Signs Vital Signs: 114/65 [facility] Medical History Acute headache Anxiety (11/16/15) Asthma (~1997) Bilateral carpal tunnel syndrome Bronchitis (~1999) Depression (11/16/15) Gestational hypertension Hemoptysis Hypercholesteremia (~01/2020) Hypertension (~01/2020) Pneumonia (~1999) Right knee sprain Stye Tailbone injury (~1999) Tibia fracture (~2017) Vasovagal reaction (~2016) Whiplash injuries Family History Brother Age: 23 Bipolar affective disorder, remission status unspecified Father Age: 57 Type 2 diabetes mellitus without complication, unspecified senior living insulin use status Heart disease Essential hypertension Hyperlipidemia Cancer Myocardial infarction High threshold of implanted defibrillator Grandmother Cancer Smoker Mental health problem Mother Age: 55 Mental health problem Hypothyroid PTSD (post-traumatic stress disorder) Factor V deficiency, congenital Grandmother Type 2 diabetes mellitus without complication, unspecified senior living insulin use status Mental health problem Sister Age: 32 Bipolar affective disorder, remission status unspecified Heart murmur Congenital heart defect Factor V deficiency, congenital Sister Age: 26 Adrenal gland disorder Hypothyroid Congenital adrenal hyperplasia PCOS (polycystic ovarian syndrome) Migraines Grandfather Cancer Smoker Grandfather Myocardial infarction Family/Other Schizophrenia Family estrangement Social History marital status: unmarried,living together household members: significant other lives independently: Yes caregiver/support person: No housing: other (Live in in permanent park in [place].) pets and animals: Yes (2 dog (aware, dogs are very gentle w kids)) education level: high school (Did not finish high school. Wants to get GED. 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 She will avoid. ) alcohol intake: former (~2 drinks per week, formerly when not . None since conception. ) substance use type: marijuana (Stopped with diagnosis. ) during the past year weight has: increased > 10 lbs well-balanced diet: daily or most days daily servings fruits/ve-4 caffeine: Yes (One 12 oz breve latte daily. Aware of 200 mg precautions. ) Type(s) of exercise: walking frequency: 1-2 times per week duration: 30-45 minutes/day Evaluation Evaluation Baseline heart rate: 125 Variability: Moderate (11-25) monitor accelerations: Present Monitor Decelerations: Absent Category of Tracing: Reactive Status: Category l Diagnosis, Plan/Disposition Plan/Disposition Plan: To clinic for BPP, reports home FSGs wnl OB Disposition: home
== END 2020-11-01 11:40 | disposition home or self-care (01) ==
LOC: LABOR 11:09 → OB 11-02 09:38
PROVIDERS: PCP Family Medicine; Referring Provider Obstetrics & Gynecology; Visit Provider Obstetrics & Gynecology
DX: O14.03 Mild to moderate pre-eclampsia, third trimester (principal); O24.415 Gestational diabetes mellitus in pregnancy, controlled by oral hypoglycemic drugs; Z3A.35 35 weeks gestation of pregnancy
CPT/HCPCS: 36415; 59025; 84450; 84550; 85025; 87653; G0378; G0379

== ENCOUNTER → 2020-11-01 12:07 | Outpatient (CLI) | payer OTHER, MEDICAID, SELFPAY ==
[2020-11-01 13:24] LABS: Add Manual Diff / Slide Review NO; Basophils Absolute Auto 100 /uL (0-100); Basophils Percent Auto 0.5 % (0-2); Eosinophils Absolute Auto 100 /uL (0-450); Eosinophils Percent Auto 0.7 % (2-4); Hematocrit 34.5 % (36-46); Hemoglobin 11.6 g/dL (12.0-16.0); Lymphocytes Absolute Auto 1300 /uL (1100-4500); Lymphocytes Percent Auto 11.3 % (25-40); Mean Corpuscular HGB Conc 33.5 % (30-36); Mean Corpuscular Hemoglobin 29.6 PG (26-34); Mean Corpuscular Volume 88.2 fL (80-100); Monocytes Absolute Auto 800 /uL (0-900); Monocytes Percent Auto 7.3 % (3-14); Neutrophils Absolute Auto 9300 /uL (1500-7000); Neutrophils Percent Auto 80.2 % (50-75); Platelet Count 171 X10^3/uL (150-400); Red Blood Cell Count 3.91 X10^6/uL (4.0-5.2); White Blood Cell Count 11.5 X10^3/uL (4.5-11.0)
[2020-11-01 13:47] LABS: Aspartate Aminotransferase 33 IU/L (14-36); BUN Creatinine Ratio 17.5 (6-22); Blood Urea Nitrogen 7 mg/dL (7-17); Estimated Glomerular Filt Rate > 60.0 mL/min (>60); Uric Acid 6.5 mg/dL (2.5-6.2)
[2020-11-02 15:36] LABS: Strep Grp B PCR POS for Grp B Strep
== END ==
PROVIDERS: PCP Family Medicine; Visit Provider Obstetrics & Gynecology
DX: O14.93 Unspecified pre-eclampsia, third trimester; Z3A.35 35 weeks gestation of pregnancy
CPT/HCPCS: 36415; 84450; 84550; 85025; 87653

== ENCOUNTER 2020-11-03 16:07 | Outpatient (CLI) | payer OTHER, MEDICAID, SELFPAY | END 2020-11-03 17:24 | disposition home or self-care (01) | LOC: LABOR 16:32 → OB 11-04 06:33 | PROVIDERS: PCP Family Medicine; Referring Provider Obstetrics & Gynecology; Visit Provider Obstetrics & Gynecology | DX: O14.93 Unspecified pre-eclampsia, third trimester (principal); O24.415 Gestational diabetes mellitus in pregnancy, controlled by oral hypoglycemic drugs; Z3A.36 36 weeks gestation of pregnancy | CPT/HCPCS: 59025; G0378; G0379 ==

== ENCOUNTER 2020-11-04 17:16 | Outpatient (CLI) | payer OTHER, MEDICAID, SELFPAY | END 2020-11-04 17:54 | disposition home or self-care (01) | LOC: OB 11-05 12:17 | PROVIDERS: PCP Family Medicine; Referring Provider Obstetrics & Gynecology; Visit Provider Obstetrics & Gynecology | DX: Z03.71 Encounter for suspected problem with amniotic cavity and membrane ruled out (principal); O14.93 Unspecified pre-eclampsia, third trimester; O24.415 Gestational diabetes mellitus in pregnancy, controlled by oral hypoglycemic drugs; Z3A.36 36 weeks gestation of pregnancy | CPT/HCPCS: 59025; 84112; G0378; G0379 ==

== ENCOUNTER 2020-11-08 12:28 | Outpatient (CLI) | payer OTHER, MEDICAID, SELFPAY ==
[2020-11-08 13:07] LABS: Add Manual Diff / Slide Review NO; Basophils Absolute Auto 0 /uL (0-100); Basophils Percent Auto 0.4 % (0-2); Eosinophils Absolute Auto 100 /uL (0-450); Eosinophils Percent Auto 0.6 % (2-4); Hematocrit 36.7 % (36-46); Hemoglobin 12.5 g/dL (12.0-16.0); Lymphocytes Absolute Auto 1300 /uL (1100-4500); Lymphocytes Percent Auto 10.7 % (25-40); Mean Corpuscular Hemoglobin 29.7 PG (26-34); Mean Corpuscular Volume 87.4 fL (80-100); Monocytes Absolute Auto 700 /uL (0-900); Monocytes Percent Auto 5.5 % (3-14); Neutrophils Absolute Auto 10300 /uL (1500-7000); Neutrophils Percent Auto 82.8 % (50-75); Platelet Count 204 X10^3/uL (150-400); Red Cell Distribution Width 14.2 % (11.6-14.8); White Blood Cell Count 12.4 X10^3/uL (4.5-11.0)
[2020-11-08 13:18] LABS: Aspartate Aminotransferase 36 IU/L (14-36); Blood Urea Nitrogen 8 mg/dL (7-17); Estimated Glomerular Filt Rate > 60.0 mL/min (>60); Uric Acid 6.6 mg/dL (2.5-6.2)
--- NOTE | 2020-11-08 13:48 | PM.OBTRLD ---
Visit Information Visit Information Date of evaluation: 11/08/20 Primary OB Provider: Daisy Aldana Reason for Evaluation: Yes non-stress test Comments/Additional reasons for admission: Patient presents for scheduled NST for preeclampsia without severe features, GDMA2 on metformin, and factor 5 leiden on lovenox. 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 insulin use status Heart disease Essential hypertension Hyperlipidemia Cancer Myocardial infarction High threshold of implanted defibrillator Grandmother Cancer Smoker Mental health problem Mother Age: 55 Mental health problem Hypothyroid PTSD (post-traumatic stress disorder) Factor V deficiency, congenital Grandmother Type 2 diabetes mellitus without complication, unspecified 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 insulin use status Mental health problem Sister Age: 32 Bipolar affective disorder, remission status unspecified Heart murmur Congenital heart defect Factor V deficiency, congenital Sister Age: 26 Adrenal gland disorder Hypothyroid Congenital adrenal hyperplasia PCOS (polycystic ovarian syndrome) Migraines Grandfather Cancer Smoker Grandfather Myocardial infarction Family/Other Schizophrenia Family estrangement Social History marital status: unmarried,living together household members: significant other lives independently: Yes caregiver/support person: No housing: other (Live in in permanent park in [place].) pets and animals: Yes (2 dog (aware, dogs are very gentle w kids)) education level: high school (Did not finish high school. Wants to get GED. 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 She will avoid. ) alcohol intake: former (~2 drinks per week, formerly when not . None since conception. ) substance use type: marijuana (Stopped with diagnosis. ) during the past year weight has: increased > 10 lbs well-balanced diet: daily or most days daily servings fruits/ve-4 caffeine: Yes (One 12 oz breve latte daily. Aware of 200 mg precautions. ) Type(s) of exercise: walking frequency: 1-2 times per week duration: 30-45 minutes/day Objective Labs Result Diagrams: 11/08/20 12:50 11/08/20 12:50 Labs: Laboratory Results - last 24 hr 11/08/20 11/08/20 12:50 12:50 WBC 12.4 H RBC 4.20 Hgb 12.5 Hct 36.7 MCV 87.4 MCH 29.7 MCHC 34.0 RDW 14.2 Plt Count 204 Neut % (Auto) 82.8 H Lymph % (Auto) 10.7 L [place] % (Auto) 5.5 Eos % (Auto) 0.6 L Baso % (Auto) 0.4 Neut # (Auto) 48926 H Lymph # (Auto) 1300 [place] # (Auto) 700 Eos # (Auto) 100 Baso # (Auto) 0 BUN 8 Creatinine 0.42 L Estimated GFR > 60.0 BUN/Creatinine Ratio 19.0 Uric Acid 6.6 H AST 36 Evaluation Evaluation Baseline heart rate: 130 Variability: Moderate (11-25) monitor accelerations: Present Monitor Decelerations: Absent Contraction Frequency (minutes): 10 Uterine Contraction Intensity: Mild Category of Tracing: Reactive Status: Category l Laboratory results: Laboratory Tests 11/08/20 11/08/20 12:50 12:50 WBC 12.4 H RBC 4.20 Hgb 12.5 Hct 36.7 MCV 87.4 MCH 29.7 MCHC 34.0 RDW 14.2 Plt Count 204 Neut % (Auto) 82.8 H Lymph % (Auto) 10.7 L [place] % (Auto) 5.5 Eos % (Auto) 0.6 L Baso % (Auto) 0.4 Neut # (Auto) 67706 H Lymph # (Auto) 1300 [place] # (Auto) 700 Eos # (Auto) 100 Baso # (Auto) 0 BUN 8 Creatinine 0.42 L Estimated GFR > 60.0 BUN/Creatinine Ratio 19.0 Uric Acid 6.6 H AST 36 Diagnosis, Plan/Disposition Plan/Disposition Plan: s/p 01/02 BPP, scheduled for IOL in 2 days. OB Disposition: home
--- NOTE | 2020-11-08 19:10 | PM.OBTRLD ---
Visit Information Visit Information Date of evaluation: 11/08/20 Primary OB Provider: Daisy Aldana Reason for Evaluation: Yes non-stress test Comments/Additional reasons for admission: Scheduled NST at 36 wks for hx preeclampsia without severe features, GDMA2, hypothyroidism, factor V leiden on lovenox Vital Signs Vital Signs: 131/80 [facility] Medical History Acute headache Anxiety (11/16/15) Asthma (~1997) Bilateral carpal tunnel syndrome Bronchitis (~1999) Depression (11/16/15) Gestational hypertension Hemoptysis Hypercholesteremia (~01/2020) Hypertension (~01/2020) Pneumonia (~1999) Right knee sprain Stye Tailbone injury (~1999) Tibia fracture (~2017) Vasovagal reaction (~2016) Whiplash injuries Family History Brother Age: 23 Bipolar affective disorder, remission status unspecified Father Age: 57 Type 2 diabetes mellitus without complication, unspecified detention insulin use status Heart disease Essential hypertension Hyperlipidemia Cancer Myocardial infarction High threshold of implanted defibrillator Grandmother Cancer Smoker Mental health problem Mother Age: 55 Mental health problem Hypothyroid PTSD (post-traumatic stress disorder) Factor V deficiency, congenital Grandmother Type 2 diabetes mellitus without complication, unspecified 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 insulin use status Mental health problem Sister Age: 32 Bipolar affective disorder, remission status unspecified Heart murmur Congenital heart defect Factor V deficiency, congenital Sister Age: 26 Adrenal gland disorder Hypothyroid Congenital adrenal hyperplasia PCOS (polycystic ovarian syndrome) Migraines Grandfather Cancer Smoker Grandfather Myocardial infarction Family/Other Schizophrenia Family estrangement Social History marital status: unmarried,living together household members: significant other lives independently: Yes caregiver/support person: No housing: other (Live in in permanent park in [place].) pets and animals: Yes (2 dog (aware, dogs are very gentle w kids)) education level: high school (Did not finish high school. Wants to get GED. 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 She will avoid. ) alcohol intake: former (~2 drinks per week, formerly when not . None since conception. ) substance use type: marijuana (Stopped with diagnosis. ) during the past year weight has: increased > 10 lbs well-balanced diet: daily or most days daily servings fruits/ve-4 caffeine: Yes (One 12 oz breve latte daily. Aware of 200 mg precautions. ) Type(s) of exercise: walking frequency: 1-2 times per week duration: 30-45 minutes/day Objective Labs Result Diagrams: 11/08/20 12:50 11/08/20 12:50 Labs: Laboratory Results - last 24 hr 11/08/20 11/08/20 12:50 12:50 WBC 12.4 H RBC 4.20 Hgb 12.5 Hct 36.7 MCV 87.4 MCH 29.7 MCHC 34.0 RDW 14.2 Plt Count 204 Neut % (Auto) 82.8 H Lymph % (Auto) 10.7 L [place] % (Auto) 5.5 Eos % (Auto) 0.6 L Baso % (Auto) 0.4 Neut # (Auto) 85000 H Lymph # (Auto) 1300 [place] # (Auto) 700 Eos # (Auto) 100 Baso # (Auto) 0 BUN 8 Creatinine 0.42 L Estimated GFR > 60.0 BUN/Creatinine Ratio 19.0 Uric Acid 6.6 H AST 36 Evaluation Evaluation Baseline heart rate: 130 Variability: Moderate (11-25) monitor accelerations: Present Monitor Decelerations: Absent Category of Tracing: Reactive Status: Category l Laboratory results: Laboratory Tests 11/08/20 11/08/20 12:50 12:50 WBC 12.4 H RBC 4.20 Hgb 12.5 Hct 36.7 MCV 87.4 MCH 29.7 MCHC 34.0 RDW 14.2 Plt Count 204 Neut % (Auto) 82.8 H Lymph % (Auto) 10.7 L [place] % (Auto) 5.5 Eos % (Auto) 0.6 L Baso % (Auto) 0.4 Neut # (Auto) 63910 H Lymph # (Auto) 1300 [place] # (Auto) 700 Eos # (Auto) 100 Baso # (Auto) 0 BUN 8 Creatinine 0.42 L Estimated GFR > 60.0 BUN/Creatinine Ratio 19.0 Uric Acid 6.6 H AST 36 Diagnosis, Plan/Disposition Plan/Disposition Plan: Scheduled IOL in 48 hours OB Disposition: home
== END 2020-11-08 13:55 | disposition home or self-care (01) ==
LOC: LABOR 13:58 → OB 11-09 06:43
PROVIDERS: PCP Family Medicine; Referring Provider Obstetrics & Gynecology; Visit Provider Obstetrics & Gynecology
DX: O24.415 Gestational diabetes mellitus in pregnancy, controlled by oral hypoglycemic drugs (principal); O14.03 Mild to moderate pre-eclampsia, third trimester; Z3A.36 36 weeks gestation of pregnancy
CPT/HCPCS: 36415; 59025; 84450; 84550; 85025; G0378; G0379

== ENCOUNTER 2020-11-10 19:23 | Inpatient (IN) | payer OTHER, MEDICAID, SELFPAY ==
[2020-11-10 19:47] VITALS: BP 120/71
[2020-11-10 21:13] LABS: Add Manual Diff / Slide Review NO; Basophils Absolute Auto 100 /uL (0-100); Basophils Percent Auto 0.8 % (0-2); Eosinophils Absolute Auto 100 /uL (0-450); Eosinophils Percent Auto 0.4 % (2-4); Hematocrit 33.7 % (36-46); Hemoglobin 11.4 g/dL (12.0-16.0); Lymphocytes Absolute Auto 1600 /uL (1100-4500); Mean Corpuscular HGB Conc 33.7 % (30-36); Mean Corpuscular Hemoglobin 29.5 PG (26-34); Mean Corpuscular Volume 87.7 fL (80-100); Monocytes Absolute Auto 1000 /uL (0-900); Monocytes Percent Auto 8.8 % (3-14); Neutrophils Absolute Auto 8900 /uL (1500-7000); Platelet Count 185 X10^3/uL (150-400); Red Blood Cell Count 3.85 X10^6/uL (4.0-5.2); Red Cell Distribution Width 13.9 % (11.6-14.8); White Blood Cell Count 11.8 X10^3/uL (4.5-11.0)
[2020-11-10] MEDS: DINOPROSTONE VAG (CERVIDIL) 10 MG VAG (21:15)
[2020-11-10 23:10] LABS: COVID19 - ADMIT (NP swab/PCR) Negative (Negative)
[2020-11-11] MEDS: ZOLPIDEM 5 MG TABLET PO (01:02)
[2020-11-11] MEDS: ACETAMINOPHEN 325 MG TABLET 650 MG PO ×2 (01:42→14:13)
[2020-11-11] MEDS: ONDANSETRON 4 MG/2 ML INJ IV (04:46)
--- NOTE | 2020-11-11 08:03 | P.HPOB_ITS ---
OB HPI Date/Time Date of admission: 11/10/20 Date Patient Seen: 11/11/20 Time Patient Seen: 07:15 History of Present Condition Chief complaint: observation of labor : 1 Para: 0 Estimated Date of Delivery: 12/01/20 Estimated Gestational Age (weeks): 37 Narrative: Haley Haile is a 30 year old @37+0 with preeclampsia without severe features diagnosed at 27 weeks gestation, GDMA2 on metformin 1000mg qHS, factor 5 deficiency on lovenox with her last dose 11/09, and hypothyroidism on 125mcg levothyroixine, admitted for induction of labor due to the preeclampsia. Her has been closely jointly monitored with M, with biweekly testing and weekly preeclampsia labs, all of which has been stable and reassuring. She has additional medical history including exercise induced asthma, though no other contributory medical, surgical, family, or social history. The patient denies PIH symptoms or obstetrical symptoms this AM. She underwent cervical ripening overnight with cervidil, which had to be removed after 4 hours due to uterine tachysystole. Indications Indication for induction OB: medical complication History of Present care: good care, initiated at week # (10), number of visits (18) and pounds weight gain (21) Dating criteria: LMP confirmed by 1st trimester US Ultrasounds: normal 1st trimester US and normal mid trimester US Obstetrical complications: gestational diabetes and preeclampsia Medical complications: other Preadmission Labs Blood type: O (+) positive -: Antibody screen: negative, GBS status: positive, HBsAG: negative, HIV: negative and RPR/VDLR: negative -: Chlamydia screen: not detected and Gonorrhea screen: not detected -: Rubella: immune and Varicella: immune PAP: Normal Quad screen: Normal Urine: no growth 1 hr GTT: 140 3 hr GTT: 1 hr (207), 2 hr (151) and 3 hr (109) Fasting blood glucose: 100 Evaluation Evaluation Baseline heart rate: 130 Variability: Moderate (11-25) monitor accelerations: Present Monitor Decelerations: Absent Contraction Frequency (minutes): 3 Category of Tracing: Reactive Status: Category l Cervical dilation (cm): 1 Cervical effacement (%): 80 station: -1 Laboratory results: Laboratory Tests 11/10/20 11/10/20 11/10/20 20:08 20:08 20:50 WBC 11.8 H RBC 3.85 L Hgb 11.4 L Hct 33.7 L MCV 87.7 MCH 29.5 MCHC 33.7 RDW 13.9 Plt Count 185 Neut % (Auto) 76.0 H Lymph % (Auto) 14.0 L [place] % (Auto) 8.8 Eos % (Auto) 0.4 L Baso % (Auto) 0.8 Neut # (Auto) 8900 H Lymph # (Auto) 1600 [place] # (Auto) 1000 H Eos # (Auto) 100 Baso # (Auto) 100 SARS-CoV-2 (PCR) Negative Blood Type O Positive Antibody Screen Negative COUNTS INCLUDE 234 BEDS AT [facility] Medical History Acute headache Anxiety (11/16/15) Asthma (~1997) Bilateral carpal tunnel syndrome Bronchitis (~1999) Depression (11/16/15) Gestational hypertension Hemoptysis Hypercholesteremia (~01/2020) Hypertension (~01/2020) Pneumonia (~1999) Right knee sprain Stye Tailbone injury (~1999) Tibia fracture (~2017) Vasovagal reaction (~2016) Whiplash injuries Family History Brother Age: 23 Bipolar affective disorder, remission status unspecified Father Age: 57 Type 2 diabetes mellitus without complication, unspecified longterm insulin use status Heart disease Essential hypertension Hyperlipidemia Cancer Myocardial infarction High threshold of implanted defibrillator Grandmother Cancer Smoker Mental health problem Mother Age: 55 Mental health problem Hypothyroid PTSD (post-traumatic stress disorder) Factor V deficiency, congenital Grandmother Type 2 diabetes mellitus without complication, unspecified 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 use status Mental health problem Sister Age: 32 Bipolar affective disorder, remission status unspecified Heart murmur Congenital heart defect Factor V deficiency, congenital Sister Age: 26 Adrenal gland disorder Hypothyroid Congenital adrenal hyperplasia PCOS (polycystic ovarian syndrome) Migraines Grandfather Cancer Smoker Grandfather Myocardial infarction Family/Other Schizophrenia Family estrangement Social History marital status: unmarried,living together household members: significant other lives independently: Yes caregiver/support person: No housing: other (Live in in permanent park in [place].) pets and animals: Yes (2 dog (aware, dogs are very gentle w kids)) education level: high school (Did not finish high school. Wants to get GED. 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 She will avoid. ) alcohol intake: former (~2 drinks per week, formerly when not . None since conception. ) substance use type: marijuana (Stopped with diagnosis. ) during the past year weight has: increased > 10 lbs well-balanced diet: daily or most days daily servings fruits/ve-4 caffeine: Yes (One 12 oz breve latte daily. Aware of 200 mg precautions. ) Type(s) of exercise: walking frequency: 1-2 times per week duration: 30-45 minutes/day Meds Home Medications and Allergies Home Medications Medication Instructions Recorded Confirmed Type albuterol sulfate [ProAir HFA] 2 puff INHALATION Q4H PRN 04/03/19 07/26/20 History fluticasone propionate 50 2 spray NASAL DAILY #18.2 ml 02/15/20 07/26/20 Rx mcg/actuation nasal spray,suspension epinephrine 0.3 mg/0.3 mL SUBCUT 03/12/20 07/26/20 History injection, auto-injector ondansetron 4 mg disintegrating 4 mg PO Q6H PRN #60 tab 04/29/20 07/26/20 Rx tablet prenat.vits,ata,crk-gfwi-yyakg 1 tab PO DAILY 04/29/20 11/11/20 History levothyroxine 100 mcg tablet 100 mcg PO DAILY #90 tab 07/28/20 Rx levothyroxine 125 mcg tablet 125 mcg PO DAILY #30 tab 09/10/20 09/10/20 Rx blood sugar diagnostic #120 ea 09/14/20 Rx blood-glucose meter #1 ea 09/14/20 Rx lancets #120 ea 09/14/20 11/11/20 Rx cefdinir 300 mg PO Q12H #14 cap 10/03/20 Rx labetalol 100 mg tablet 100 mg PO BID #60 tab 10/04/20 Rx metformin 500 mg tablet 1,000 mg PO .qhs #60 tab 11/03/20 Rx enoxaparin 300 mg/3 mL 40 mg SUBCUT DAILY #12 ml 11/08/20 11/08/20 Rx subcutaneous solution Allergies Allergy/AdvReac Type Severity Reaction Status Date / Time No Known Drug Allergies Allergy Verified 10/03/20 11:56 Review of Systems Constitutional Constitutional: Reports system reviewed and no additional complaints, except as documented Cardiovascular Cardiovascular: Reports system reviewed and no additional complaints, except as documented Respiratory Respiratory: Reports system reviewed and no additional complaints, except as documented Genitourinary Genitourinary: Reports system reviewed and no additional complaints, except as documented Neurologic Neurologic: Reports system reviewed and no additional complaints, except as documented Exam Vital Signs (past 8 hours): 120/62, HR 63 GI Palpation: soft and No tender External Female Exam: normal external appearance Other: EFW 7#10 Objective Labs Result Diagrams: 11/10/20 20:08 Labs: Laboratory Results - last 24 hr 11/10/20 11/10/20 11/10/20 20:08 20:08 20:50 WBC 11.8 H RBC 3.85 L Hgb 11.4 L Hct 33.7 L MCV 87.7 MCH 29.5 MCHC 33.7 RDW 13.9 Plt Count 185 Neut % (Auto) 76.0 H Lymph % (Auto) 14.0 L [place] % (Auto) 8.8 Eos % (Auto) 0.4 L Baso % (Auto) 0.8 Neut # (Auto) 8900 H Lymph # (Auto) 1600 [place] # (Auto) 1000 H Eos # (Auto) 100 Baso # (Auto) 100 SARS-CoV-2 (PCR) Negative Blood Type O Positive Antibody Screen Negative Assessment and Plan Assessment and Plan Assessment and Plan narrative: This patient is admitted for induction of labor with preeclampsia without severe features, in the setting of GDMA2, factor 5 leiden, and hypothyroidism. We discussed the mechanism of induction, and a transcervical kumar catheter was placed. - GBS+, for PCN when ruptured - cEFM, toco - pitocin per protocol - labetalol 100mg daily - metformin held - last dose of lovenox 6/15 AM, confirmed. To resume
--- NOTE | 2020-11-11 08:03 | PM.OBPNLAB ---
Date/Time Date Patient Seen: 11/11/20 Time Patient Seen: 08:03 Pain Control Pain control: other Pelvic Exam Dilation (cm): 1 Effacement (%): 80 station: 0 Amniotic membrane status: Intact Comments: Patient had cervidil in place from 9:15 PM to approximately 1 AM, when it was removed due to excessive contractions. A transcervical kumar bulb was placed at 7:15. Contractions Contraction frequency (min): 2 Status status: Category ll Heart Rate Baseline: 125 Monitor Accelerations: Present Monitor Decelerations: Variable (occasional) Monitor Variability: Moderate Assessment and Plan Assessment: induction ongoing Plan: continuous present management
[2020-11-11] MEDS: fentaNYL 100 MCG/2 ML INJ 50 MCG IV (08:46)
[2020-11-11] MEDS: OXYTOCIN PREMIX 30 UNIT/500 ML PLAST..BAG IV (09:44)
--- NOTE | 2020-11-11 12:10 | PM.OBPNLAB ---
Date/Time Date Patient Seen: 11/11/20 Time Patient Seen: 11:10 Pain Control Pain control: tolerating well Pelvic Exam Dilation (cm): 4 Effacement (%): 100 station: -1 Amniotic membrane status: Ruptured (SROM for clear fluid) Comments: kumar bulb expelled Contractions Pitocin rate (mU/min): 3 Contraction frequency (min): 2 Contraction pattern: Regular Status status: Category ll Heart Rate Baseline: 130 Monitor Accelerations: Present Monitor Decelerations: Late Monitor Variability: Moderate Assessment and Plan Assessment: induction ongoing Plan: continuous present management Comments: Conservative intervention for intermittent late decelerations in the setting of overall reassuring status.
[2020-11-11] MEDS: CALCIUM CARBONATE 500 MG TAB 1000 MG PO (13:10)
--- NOTE | 2020-11-11 13:47 | P.PNOB_ITS ---
Date/Time Date Patient Seen: 11/11/20 Time Patient Seen: 13:47 Pain Control Pain control: epidural Pelvic Exam Dilation (cm): 5 Effacement (%): 100 station: -1 Amniotic membrane status: Ruptured (SROM for clear fluid) Contractions Contractions on admission: regular Pitocin rate (mU/min): 6 Contraction frequency (min): 3 Contraction pattern: Regular Status status: Category ll Heart Rate Baseline: 115 Monitor Accelerations: Present Monitor Decelerations: Late (episodic) Monitor Variability: Moderate Assessment and Plan Assessment: induction ongoing Plan: continuous present management Comments: overall reassuring status, intermittent late decelerations, making slow cervical change. Will continue conservative interventions and i nduction per protocol.
[2020-11-11] MEDS: PENICILLIN G POTASSIUM 5,000,000 UNIT in DEXTROSE 5% IN WATER 250 ML IV (15:43)
[2020-11-11] MEDS: FENT 2MCG/ML BUPIV 0.125% EPI 200 MCG/100 ML PLAST..BAG 14 MCG EPIDURAL (16:08)
[2020-11-11] MEDS: CITRIC ACID/SODIUM CITRATE 15 ML SOLUTION 30 ML PO (16:40)
--- NOTE | 2020-11-11 17:31 | PM.OBPNLAB ---
Date/Time Date Patient Seen: 11/11/20 Time Patient Seen: 15:30 Pain Control Pain control: epidural Pelvic Exam Dilation (cm): 10 Effacement (%): 100 station: +1 Amniotic membrane status: Ruptured (SROM for clear fluid) Contractions Pitocin rate (mU/min): 10 Contraction frequency (min): 3 Contraction pattern: Regular Status status: Category ll Heart Rate Baseline: 125 Monitor Accelerations: Present (+ scalp stim) Monitor Decelerations: Late Monitor Variability: Moderate Assessment and Plan Assessment: active labor Plan: continuous present management Comments: cat 2 EFM with reassuring features including accels, moderate variability, + scalp stim. Will begin pushing.
[2020-11-11] MEDS: PENICILLIN G POTASSIUM 3,000,000 UNIT/50 ML FROZ.PIGGY 100 UNIT IV (19:12)
--- NOTE | 2020-11-11 20:05 | PM.OBPNLAB ---
Date/Time Date Patient Seen: 11/11/20 Time Patient Seen: 20:06 Pelvic Exam Dilation (cm): 10 Effacement (%): 100 station: +2 Amniotic membrane status: Ruptured (SROM for clear fluid) Contractions Pitocin rate (mU/min): 12 Contraction frequency (min): 3 Contraction pattern: Regular Status status: Category l Heart Rate Baseline: 125 Monitor Accelerations: Present (+ scalp stim) Monitor Decelerations: Absent Monitor Variability: Moderate Comments: Reassuring, largely cat 1 EFM since pushing began. Assessment and Plan Plan: continuous present management Comments: This patient has been pushing for 2.5 hours. Initial maternal effort was good with appropriate descent, but poor maternal effort during the past hour has led to an arrest of further descent. station is too high to effectively perform an instrumented delivery, and this combined with nulliparity and GDMA2 make a vacuum assisted delivery a more fraught option. Discussed with the patient and her spouse that maternal effort is necessary to effect a delivery from below, even with a vacuum or forceps. Patient reports that she is tired, has taken a break of approximately 20 minutes, declines a section. Discussed reassessing overall clinical picture at 3 hours of second stage.
[2020-11-11] MEDS: AZITHROMYCIN 500 MG in DEXTROSE 5% IN WATER 250 ML IV (20:46)
--- NOTE | 2020-11-11 20:51 | PM.OBPNLAB ---
Date/Time Date Patient Seen: 11/11/20 Time Patient Seen: 20:35 Pain Control Pain control: epidural (feeling pressure, tolerating poorly) Pelvic Exam Dilation (cm): 10 Effacement (%): 100 station: +2 Amniotic membrane status: Ruptured (SROM for clear fluid) Contractions Contraction frequency (min): 3 Contraction pattern: Regular Status status: Category l Heart Rate Baseline: 125 Monitor Accelerations: Absent Monitor Decelerations: Absent Monitor Variability: Moderate Assessment and Plan Plan: Comments: Patient reports that she is no longer able to push, has not made appreciable descent and is too high for instrumented delivery. Discussed risk of hemorrhage, infection, damage to surrounding organs, danger due to low station, danger in future pregnancies including placentation abnormalities and scar tissue leading to damage to surrounding organs. patient and partner vocalized understanding and informed consent was obtained and consents were signed. - 500mg azithromycin - 2g ancef - cEFM, toco - pitocin off
[2020-11-11] MEDS: LACTATED RINGERS 1,000 ML 100 ML IV ×2 (21:30→22:57)
[2020-11-11] MEDS: CEFAZOLIN 1 GM VIAL 2 GM IV (21:36)
--- NOTE | 2020-11-11 22:25 | SUR.OPER ---
Supine on Padded OR bed, head on pillow, safety belt at thigh, arms secured on padded arm boards at <90 degrees abduction. Bump under right buttock. Legs uncrossed with pillow under knees, gel pad to heels, tape over blanket to lower legs.
--- NOTE | 2020-11-11 23:00 | SUR.OPER ---
FHT 112 live male born at 2150
[2020-11-11 23:21] VITALS: BP 137/81; PULSE 83; RESP 18; TEMP 36.2; O2SAT 98
--- NOTE | 2020-11-11 23:25 | PM.OBCS.1 ---
Operative Date/Time/Diagnoses Date of procedure: 11/11/20 Time of procedure: 21:30 Pre-op diagnosis: second stage arrest Post-op diagnosis: same Procedure & Clinicians Procedure: primary section Same procedure as scheduled: Yes Indications: second stage arrest Surgeon: Daisy Aldana Pump Service Supervisor: Yennifer Monson Reason for Pump Service Supervisor: retraction, assistance with emergent section Anesthesia Type: General Operative Notes Findings: normal tubes and ovaries. [id number] subserosal fundal fibroid. Male infant in cephalic presentation, weight 3333g, apgars 5, 6, 9 Closure Type: primary Specimen(s): cord blood and cord pH Intraoperative meds administered: Ketorolac and Pitocin Applied: Catheter Estimated Blood Loss (mL): 1,250 Procedure in detail: EBL: 1250ccs Fluids:2300ccs LR UOP: 400ccs yellow urine Procedures: The patient was taken to the operating room where epidural anesthesia was bolused. She was prepped and draped in the normal sterile fashion in the dorsal supine position with a leftward tilt. Her epidural anesthesia was found not to be adequate, and general anesthesia was obtained. A Pfannenstiel skin incision was made with a scalpel and carried through to the underlying layer of fascia. The fascia was bluntly extended laterally. The superior aspect of this incision was grasped with Silvia clamps, elevated, and the underlying rectus muscles dissected off bluntly and with the curved Reed scissors. Attention was then turned to the inferior aspect of this incision which, in a similar fashion, was grasped, tented up with the Silvia clamps, and the rectus muscles dissected off bluntly and with the curved Reed scissors. The rectus muscles were then in the midline, and the peritoneum entered bluntly. The peritoneal incision was extended superiorly and inferiorly with good visualization of the bladder. The bladder blade was inserted and the vesicouterine peritoneum identified. The scalpel was used to incise the lower uterine segment above the level of the bladder, and this was extended bluntly. The fetus was found to be vertex, in VIOLA presentation. The vertex was wedged deep within the pelvis, and Dr. Monson broke scrub to provide a push up from below to facilitate delivery of the fetus. The cord was immediately clamped and cut, and a portion reserved for cord pH. The placenta was then removed spontaneously, and the uterus was exteriorized and cleared of all clots and debris. Significant hemorrhage was noted from the hysterotomy, though no extension was present. Fundal tone was good throughout, and the majority of the blood loss was at the hysterotomy. The uterine incision was repaired with 1-0 chromic in a running, locked fashion and a 2nd layer of the same suture was used to obtain excellent hemostasis. The uterus was returned to the abdomen, and the gutters were cleared of all clots and debris. The peritoneum was closed with 3-0 Vicryl, and the fascia reapproximated with 0 Vicryl in a running fashion. The subcutaneous layer was placed with 3 0 Vicryl in an interrupted fashion and the skin was closed with 4-0 biosyn in a running fashion. The patient tolerated the procedure well and sponge lap and needle counts were correct x2. 2 g of Ancef and 500mg Azithromycin were given at commencement of the case, and a vaginal prep was performed as well as the abdominal prep. The patient was taken to the recovery room in stable condition. Complications: none Baby Hal: Gender: Male Presentation: vertex Position: Right Occiput Anterior Placental Delivery Description: Manual Removal Cord Vessel Description: 3 Vessels score (1 min): 5 score (5 min): 6 score (10 min): 9 weight: 7 lb 4.404 oz Post-operative Condition: stable Disposition: PACU Aftercare: routine postop
[2020-11-11 23:26] VITALS: BP 129/88; PULSE 113; RESP 21; O2SAT 98
[2020-11-11 23:31] VITALS: BP 134/91; PULSE 110; RESP 26; O2SAT 100
[2020-11-11 23:36] VITALS: BP 138/84; PULSE 105; RESP 18; O2SAT 99
[2020-11-11] MEDS: MEPERIDINE 50 MG/ML INJ 12.5 MG IV (23:40)
[2020-11-11 23:41] VITALS: BP 145/89; PULSE 96; RESP 19; O2SAT 98
[2020-11-11 23:46] VITALS: BP 146/98; PULSE 100; RESP 14; O2SAT 98
[2020-11-12 00:01] VITALS: BP 129/89; PULSE 78; RESP 20; O2SAT 97
[2020-11-12] MEDS: OXYCODONE IR 5 MG TABLET PO ×2 (00:01→20:57)
[2020-11-12 00:06] VITALS: BP 146/100; PULSE 78; RESP 16; TEMP 36.4; O2SAT 97
--- NOTE | 2020-11-12 00:18 | SUR.PHASEI ---
pt into phase I from OR. Oral airway in place, on RA. Airway removed when pt more awake. C/o pain, medicated with morphine by anesthesia. Pt shiverring, warm blankets applied and demerol given, pt also given 5mg oxy. Fundus firm and about 1 finger below umbilicus. report to Johnathon ALMAZAN in L&D.
[2020-11-12] MEDS: LACTATED RINGERS 1,000 ML 100 ML IV (00:20)
[2020-11-12] MEDS: diphenhydrAMINE 50 MG/ML VIAL 25 MG IV (04:07)
[2020-11-12 05:27] LABS: Add Manual Diff / Slide Review NO; Basophils Absolute Auto 100 /uL (0-100); Basophils Percent Auto 0.4 % (0-2); Eosinophils Absolute Auto 0 /uL (0-450); Hematocrit 28.3 % (36-46); Hemoglobin 9.6 g/dL (12.0-16.0); Lymphocytes Absolute Auto 1400 /uL (1100-4500); Lymphocytes Percent Auto 6.4 % (25-40); Mean Corpuscular HGB Conc 33.9 % (30-36); Mean Corpuscular Hemoglobin 29.8 PG (26-34); Mean Corpuscular Volume 87.8 fL (80-100); Monocytes Absolute Auto 1600 /uL (0-900); Monocytes Percent Auto 7.1 % (3-14); Neutrophils Absolute Auto 19400 /uL (1500-7000); Neutrophils Percent Auto 86.1 % (50-75); Platelet Count 194 X10^3/uL (150-400); Red Blood Cell Count 3.22 X10^6/uL (4.0-5.2); Red Cell Distribution Width 14.1 % (11.6-14.8); White Blood Cell Count 22.6 X10^3/uL (4.5-11.0)
[2020-11-12 05:34] LABS: Alanine Aminotransferase 19 IU/L (<35); Albumin 2.8 g/dL (3.5-5.0); Albumin Globulin Ratio 0.9 (1.0-2.8); Alkaline Phosphatase 142 U/L (38-126); Aspartate Aminotransferase 32 IU/L (14-36); Bilirubin Total 0.3 mg/dL (0.2-1.3); Blood Urea Nitrogen 13 mg/dL (7-17); Calcium 9.1 mg/dL (8.4-10.2); Carbon Dioxide 22 mmol/L (22-32); Chloride 102 mmol/L (98-107); Estimated Glomerular Filt Rate > 60.0 mL/min (>60); Glucose 103 mg/dL (70-100); HEMOLYSIS < 15 (0-50); Potassium 3.8 mmol/L (3.4-5.1); Sodium 129 mmol/L (137-145); Total Protein 5.8 g/dL (6.3-8.2)
[2020-11-12] MEDS: IBUPROFEN 600 MG TABLET PO ×3 (05:38→17:55)
[2020-11-12] MEDS: ACETAMINOPHEN 325 MG TABLET 650 MG PO ×3 (05:38→17:55)
[2020-11-12] MEDS: LEVOTHYROXINE 125 MCG TABLET PO (06:11)
[2020-11-12] MEDS: DOCUSATE 250 MG CAPSULE PO (08:35)
[2020-11-12 08:36] VITALS: BP 110/61; PULSE 85
[2020-11-12] MEDS: LABETALOL 100 MG TABLET PO (08:36)
[2020-11-12] MEDS: PRENATAL VIT,CALC/IRON/FOLIC 1 TABLET 1 TAB PO (08:36)
--- NOTE | 2020-11-12 10:30 | PM.OBPN.1 ---
Subjective - OB Subjective Patient comments: pain well controlled and tolerating diet [place] baby status: doing well [place] feeding status: exclusively breast feeding Narrative: This patient is a 30-year-old postop day 1 status post primary section for a second-stage arrest. section was complicated by post hemorrhage of 1200 cc, primarily from the hysterotomy and not from uterine atony. Today, the patient is doing well. She reports good pain control on p.o. medications, has briefly ambulated, is tolerating p.o., has mild lochia, and denies headaches, visual changes, chest pain, right upper quadrant pain, or trouble breathing. She is ordered for Lovenox 12 hours after removal of the epidural catheter, along with her home medications including labetalol. Date Patient Seen: 11/12/20 Time Patient Seen: 10:00 Exam Vital Signs (past 8 hours): - 11/12/20 08:36 Pulse Rate 85 Blood Pressure 110/61 Oxygen Delivery Method Room Air Const General: cooperative and comfortable GI Inspection: incision (Clean, dry, intact, covered by clean Aquacel) and obesity Palpation: soft and No tender Skin General: no rashes or lesions noted Extrem General: normal to inspection Other: Patient reports has and SCDs around so compression portion is on junior as this is more comfortable. Discussed that with her history of factor 5 Leiden, she should retain the STDs as applied so that they will be effective for VTE prophylaxis. Objective Labs Result Diagrams: 11/12/20 04:55 11/12/20 04:55 Labs: Laboratory Results - last 24 hr 11/12/20 11/12/20 04:55 04:55 WBC 22.6 H D RBC 3.22 L Hgb 9.6 L Hct 28.3 L MCV 87.8 MCH 29.8 MCHC 33.9 RDW 14.1 Plt Count 194 Neut % (Auto) 86.1 H Lymph % (Auto) 6.4 L [place] % (Auto) 7.1 Eos % (Auto) 0.0 L Baso % (Auto) 0.4 Neut # (Auto) 96228 H Lymph # (Auto) 1400 [place] # (Auto) 1600 H Eos # (Auto) 0 Baso # (Auto) 100 Sodium 129 L Potassium 3.8 Chloride 102 Carbon Dioxide 22 BUN 13 Creatinine 0.81 Estimated GFR > 60.0 BUN/Creatinine Ratio 16.0 Glucose 103 H Calcium 9.1 Total Bilirubin 0.3 AST 32 ALT 19 Alkaline Phosphatase 142 H Total Protein 5.8 L Albumin 2.8 L Globulin 3.0 Albumin/Globulin Ratio 0.9 L Assessment & Plan Plan day: 1 plan OB: routine postop care Comments: This patient is admitted status post primary section second-stage arrest in the setting of preeclampsia without severe features, GDM A2, factor 5 Leiden, and hypothyroidism. Patient is recovering well today, with normal blood pressures and no PIH symptoms. She is ordered for Lovenox to start 12 hours after removal of her epidural catheter. Proper SCD placement was reviewed with the patient. She is for a voiding trial and ambulation today. Time Spent With Patient Time: Total time spent is greater than 50% in coordination of care (as documented) at patient's floor/unit and/or counseling patient: Time with patient: 15-24 minutes
[2020-11-12] MEDS: ENOXAPARIN 40 MG/0.4 ML SYRINGE SUBCUT (11:02)
[2020-11-12 17:55] VITALS: TEMP 36.8; TEMP 36.9
[2020-11-13] MEDS: ACETAMINOPHEN 325 MG TABLET 650 MG PO ×4 (00:04→16:17)
[2020-11-13] MEDS: IBUPROFEN 600 MG TABLET PO ×4 (00:04→16:17)
[2020-11-13] MEDS: OXYCODONE IR 5 MG TABLET PO ×3 (01:13→16:18)
[2020-11-13] MEDS: LEVOTHYROXINE 125 MCG TABLET PO (05:44)
[2020-11-13 08:39] VITALS: BP 145/87; PULSE 80; RESP 16; TEMP 36.9
[2020-11-13 09:00] VITALS: BP 145/87; PULSE 80
[2020-11-13] MEDS: LABETALOL 100 MG TABLET PO (09:00)
[2020-11-13] MEDS: DOCUSATE 250 MG CAPSULE PO (09:00)
--- NOTE | 2020-11-13 11:07 | PM.OBDS.1 ---
Discharge Providers Provider Date of admission: 11/10/20 19:23 Discharge Date: 11/13/20 Primary care physician: Doug Martin DO Consults: 11/12/20 01:12 Consult to [employer] Routine Comment: Discharge provider: Daisy Aldana MD Summary Hospital Course Date Patient Seen: 11/13/20 Time Patient Seen: 10:35 Diagnoses: primary section for second stage arrest. GDMA2 on metformin, preeclampsia without severe features, factor V leiden, hypothyroidism Hospital Course: This patient was admitted for induction of labor at 37 weeks for preeclampsia without severe features in the setting of the above medical comorbidities. The patient was induced with cervidil and a transcervical kumar bulb, then with pitocin after undergoing AROM. After a 3 hour pushing stage, the patient had not achieved a station that allowed assisted delivery, and was unable to continue pushing. She was taken for primary section, complicated by a 1200cc hemorrhage from the hysterotomy. The course was uncomplicated, with well controlled BPs on labetalol, appropriate recovery meeting goals, and no other concerns. Lovenox was restarted 12 hours , to continue for 6 weeks. The patient was discharged home on PPD#2 with routine precautions and follow up. Peripartum Data Delivery Method: Section [place] 1: Gender: Male Disposition of : home Status at Discharge Cognitive/behavioral status at discharge: oriented Functional status at discharge: independent ambulation Overall status at discharge: patient is progressing back to baseline Time Spent with Patient Time attestation: Total time spent providing and/or coordinating discharge services: Objective Labs Result Diagrams: 11/12/20 04:55 11/12/20 04:55 Exam Vital Signs (past 8 hours): 110s-130s/60s-80s, HR 80s-90s, O2 sat 98-99% on RA Oxygen Delivery Method Room Air Narrative Exam Narrative: Patient reports good pain control on PO medications, ambulating, mild lochia, passing flatus, voiding, tolerating PO. No PIH complaints. Const General: cooperative, healthy appearing and comfortable Resp Effort & Inspection: normal respiratory effort Auscultation: clear to auscultation bilaterally Cardio Rate: regular rate Rhythm: regular rhythm GI Inspection: incision (c/d/i) and obesity Palpation: soft and No tender Extrem General: normal to inspection Discharge Plan Discharge Plan Patient Disposition: Home Discharge orders & Medications Prescriptions: New oxycodone 5 mg tablet 5 mg PO Q6H PRN (Reason: pain) Qty: 14 RF: 0 ibuprofen 600 mg tablet 600 mg PO Q6H PRN (Reason: pain (scale score 1-3)) Qty: 30 RF: 0 docusate sodium 100 mg capsule 100 mg PO BID Qty: 30 RF: 0 Continued fluticasone propionate [Flonase Allergy Relief] 50 mcg/actuation spray,suspension 2 spray NASAL DAILY Qty: 18.2 RF: 0 levothyroxine 100 mcg tablet 100 mcg PO DAILY Qty: 90 RF: 2 labetalol 100 mg tablet 100 mg PO BID Qty: 60 RF: 3 metformin 500 mg tablet 1,000 mg PO .qhs Qty: 60 RF: 2 epinephrine 0.3 mg/0.3 mL auto-injector SUBCUT RF: 0 prenat.vits,ata,[id number] Tablet 1 tab PO DAILY RF: 0 ondansetron 4 mg tablet,disintegrating 4 mg PO Q6H PRN (Reason: nausea and vomiting) Qty: 60 RF: 1 levothyroxine [Euthyrox] 125 mcg tablet 125 mcg PO DAILY Qty: 30 RF: 4 enoxaparin 300 mg/3 mL solution 40 mg SUBCUT DAILY Qty: 12 RF: 11 cefdinir 300 mg capsule 300 mg PO Q12H Qty: 14 RF: 0 albuterol sulfate [ProAir HFA] 90 mcg/actuation HFA aerosol inhaler 2 puff INHALATION Q4H PRN (Reason: Shortness Of Breath Or Wheezing) RF: 0 Discontinued (DME) blood-glucose meter [Blood Glucose Monitoring] Kit See Rx Instructions .ROUTE .MEDSUPPLY Qty: 1 RF: 0 (DME) Blood Glucose Test Strip See Rx Instructions .ROUTE .MEDSUPPLY Qty: 120 RF: 3 (DME) lancets Misc See Rx Instructions .ROUTE .MEDSUPPLY Qty: 120 RF: 3 No Action enoxaparin 40 mg/0.4 mL syringe 40 mg SUBCUT DAILY Qty: 4 RF: 6 Follow up/Referrals: Daisy Aldana MD [Physician] - 1 Week (incision/BP check) Doug Matrin DO [Primary Care Provider] - Diet/Activity/Treatments Diet: Regular Activity: Nothing in the vagina for 6 weeks. Avoid lifting more than 10 pounds for 6 weeks. If you have increasing bleeding, fevers, chills, nausea, vomiting, headaches, visual changes increased swelling, or any other symptoms or concerns, call the clinic or come to the emergency room. Skin/Wound/Dressing Care Report to your healthcare provider any signs of infection, such as:: chills, fever, night sweats, increased pain, unusual drainage and unusual redness Dressing: You can shower, pat the dressing and incision dry. Dressing will be removed at 1 week appointment. Visit Report/Discharge Packet Instructions: DI for Discharge Data Primary Care Provider: Doug Martin
[2020-11-13] MEDS: ENOXAPARIN 40 MG/0.4 ML SYRINGE SUBCUT (11:36)
== END 2020-11-13 17:00 | disposition home or self-care (01) | DRG 540 ==
PROVIDERS: Admitting Provider Obstetrics & Gynecology; PCP Family Medicine; Referring Provider Obstetrics & Gynecology; Visit Provider Obstetrics & Gynecology
PROC: 10D00Z1 Extraction of Products of Conception, Low, Open Approach (ICD-10-PCS; CPT 59514; principal; 2020-11-11 21:15)
DX: O14.04 Mild to moderate pre-eclampsia, complicating childbirth (principal); O99.12 Other diseases of the blood and blood-forming organs and certain disorders involving the immune mechanism complicating childbirth; D68.51 Activated protein C resistance; O99.284 Endocrine, nutritional and metabolic diseases complicating childbirth; O24.425 Gestational diabetes mellitus in childbirth, controlled by oral hypoglycemic drugs; Z37.0 Single live birth; O62.1 Secondary uterine inertia; Z3A.37 37 weeks gestation of pregnancy; O67.8 Other intrapartum hemorrhage
CPT/HCPCS: 01967; 01968; 36415; 59514; 80053; 82962; 85025; 86850; 86900; 86901; 87635; C9803; G0379; J0330; J0690; J1200; J1650; J1885; J2175; J2274; J2405; J2540; J2590; J2704; J3010

== ENCOUNTER → 2020-12-22 06:54 | Outpatient (CLI) | payer OTHER, MEDICAID, SELFPAY ==
[2020-12-22 08:37] LABS: Glucose Fasting 92 mg/dL (70-100)
[2020-12-22 08:55] LABS: Free T4, Direct Thyroxine 0.67 ng/dL (0.78-2.19)
[2020-12-22 09:08] LABS: Thyroid Stimulating Hormone 1.82 uIU/mL (0.47-4.68)
[2020-12-22 09:18] LABS: Glucose Tol Interpretation INTERPRETATION
[2020-12-22 09:53] LABS: Glucose 1 Hour 143 mg/dL (70-170)
[2020-12-22 10:17] LABS: Glucose 2 Hour 59 mg/dL (70-140)
== END ==
PROVIDERS: PCP Family Medicine; Referring Provider Obstetrics & Gynecology; Visit Provider Obstetrics & Gynecology
DX: O13.9 Gestational [pregnancy-induced] hypertension without significant proteinuria, unspecified trimester (principal); E03.9 Hypothyroidism, unspecified
CPT/HCPCS: 36415; 82951; 82952; 84439; 84443

== ENCOUNTER 2023-08-09 08:55 | Emergency (ER) | payer OTHER, MEDICAID, SELFPAY ==
[2023-08-09 09:14] VITALS: BP 142/95; PULSE 67; RESP 17; TEMP 36.6; O2SAT 98; BMI 36.5
--- NOTE | 2023-08-09 09:41 | ED_ITS ---
HPI - Back Pain/Injury General Chief Complaint: Back Pain/Injury Stated Complaint: back pain Time Seen by Provider: 08/09/23 09:17 Source: patient Mode of arrival: Ambulatory Limitations: no limitations History of Present Illness HPI Narrative: 33-year-old female who is here for evaluation of right-sided lower back discomfort. She states that yesterday she did move an appliance with her . It was not 1 specific incident that caused the discomfort. She did not necessarily think that it started at that time however shortly afterwards she went inside and her daughter grabbed her hand and she had a sudden pain in the right lower back that caused her to drop to her knees. Has taken Tylenol and ibuprofen with minimal relief. No skin changes. No urinary symptoms. Does not specifically radiate down to her leg. No abdominal pain. Related Data Home Medications Medication Instructions Recorded Confirmed albuterol sulfate 90 mcg/actuation 2 puff inhalation Q4H PRN 04/03/19 10/05/22 aerosol inhaler (ProAir HFA) Shortness Of Breath Or Wheezing fluoxetine PO 10/05/22 10/05/22 hydrochlorothiazide 12.5 mg tablet 12.5 mg PO 10/05/22 10/05/22 levothyroxine 150 mcg tablet 150 mcg PO DAILY 10/05/22 10/05/22 Previous Rx's Medication Instructions Recorded fluticasone propionate 50 2 spray intranasal DAILY #18.2 mL 02/15/20 mcg/actuation nasal spray,suspension (Flonase Allergy Relief) cyclobenzaprine 10 mg tablet 10 mg PO TID PRN muscle spasm #20 08/09/23 tabs hydrocodone 5 mg-acetaminophen 325 1 tab PO Q4-6H PRN pain #14 tabs 08/09/23 mg tablet Allergies Allergy/AdvReac Type Severity Reaction Status Date / Time warfarin AdvReac Mild Verified 10/05/22 10:37 Review of Systems Constitutional Constitutional: Reports system reviewed and no additional complaints, except as documented Gastrointestinal Gastrointestinal: Reports system reviewed and no additional complaints, except as documented Musculoskeletal Musculoskeletal: Reports system reviewed and no additional complaints, except as documented Integumentary/Breasts Skin/Breast: Reports system reviewed and no additional complaints, except as documented Neurologic Neurologic: Reports system reviewed and no additional complaints, except as documented Patient History Medical History Factor 5 Leiden mutation, heterozygous Gestational hypertension Bilateral carpal tunnel syndrome Hypercholesteremia (~01/2020) Tailbone injury (~1999) Bronchitis (~1999) Pneumonia (~1999) Asthma (~1997) Hypertension (~01/2020) Tibia fracture (~2017) Stye Depression (11/16/15) Anxiety (11/16/15) Right knee sprain Acute headache Vasovagal reaction (~2016) Whiplash injuries Hemoptysis Family History Brother Age: 25 Bipolar affective disorder, remission status unspecified Father Age: 59 Type 2 diabetes mellitus without complication, unspecified shelter insulin use status Heart disease Essential hypertension Hyperlipidemia Cancer Myocardial infarction High threshold of implanted defibrillator Grandmother Cancer Smoker Mental health problem Mother Age: 57 Mental health problem Hypothyroid PTSD (post-traumatic stress disorder) Factor V deficiency, congenital Grandmother Type 2 diabetes mellitus without complication, unspecified intermodal dispatcher insulin use status Mental health problem Sister Age: 34 Bipolar affective disorder, remission status unspecified Heart murmur Congenital heart defect Factor V deficiency, congenital Sister Age: 28 Adrenal gland disorder Hypothyroid Congenital adrenal hyperplasia PCOS (polycystic ovarian syndrome) Migraines Grandfather Cancer Smoker Grandfather Myocardial infarction Family/Other Schizophrenia Family estrangement Social History marital status: unmarried,living together household members: significant other lives independently: Yes caregiver/support person: No housing: other (Live in in [facility] [place] in [place].) pets and animals: Yes (2 dog (aware, dogs are very gentle w kids)) education level: high school (Did not finish high school. Wants to get GED. 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 She will avoid. ) alcohol intake: former (~2 drinks per week, formerly when not . None since conception. ) substance use type: marijuana (Stopped with diagnosis. ) during the past year weight has: increased > 10 lbs well-balanced diet: daily or most days daily servings fruits/ve-4 caffeine: Yes (One 12 oz breve latte daily. Aware of 200 mg precautions. ) Type(s) of exercise: walking frequency: 1-2 times per week duration: 30-45 minutes/day Smoking Status: Current every day smoker alcohol intake frequency: holidays/special occasions only Substance Use Type: marijuana Exam Initial Vital Signs Initial Vital Signs: Vital Signs Temperature 97.8 F 08/09/23 09:14 Pulse Rate 67 08/09/23 09:14 Respiratory Rate 17 08/09/23 09:14 Blood Pressure 142/95 H 08/09/23 09:14 Pulse Oximetry 98 08/09/23 09:14 Oxygen Delivery Method Room Air 08/09/23 09:14 Const General: cooperative and No ill appearing HENMT Head: normal to inspection and normocephalic Resp Effort & Inspection: normal respiratory effort Cardio Rate: regular rate GI Inspection: non-distended Back/Spine/Pelvis Thoracic/Lumbar Spine: paraspinal tenderness (Right-sided lumbar paraspinal), No thoraco-lumbar spasm and No thoracic spinal tenderness Skin General: no rashes or lesions noted Neuro General: patient alert and patient awake Extrem General: capillary refill normal Course Orders Ordered: Discontinued Medications Hydromorphone HCl (Hydromorphone 1 Mg Inj) 1 mg IM NOW ONE Stop: 08/09/23 09:42 Last Admin: 08/09/23 09:52 Dose: 1 mg Ketorolac Tromethamine (Ketorolac 30 Mg/Ml Vial) 30 mg IM NOW ONE Stop: 08/09/23 09:42 Last Admin: 08/09/23 09:53 Dose: 30 mg Vital Signs Vital signs: Vital Signs - 8 hr 08/09/23 09:14 Temperature 97.8 F Pulse Rate 67 Respiratory Rate 17 Blood Pressure 142/95 H Pulse Oximetry 98 Oxygen Delivery Method Room Air MDM - Back Pain/Injury MDM Narrative Medical decision making narrative: There was not 1 specific incident that caused the discomfort. Patient is ambulatory. I have low suspicion for fracture. No indication for radiologic studies today. No suspicion for cauda equina based on her history and physical exam. Patient is afebrile. No urinary symptoms. Will treat conservatively for now. Suspect that her symptoms will improve with conservative treatment. She was given return precautions. Discharge Plan Departure Patient Disposition: Home Clinical Impression: Low back pain Instructions: DI for Back Strain or Sprain Activity Restrictions/Additional Instructions: I do recommend that you continue with the conservative measures at home that we talked about to include staying as active as possible, heat, ice, massage. I also recommend that you continue with Tylenol and ibuprofen/Motrin. These can be purchased [id number]. You may need to take these medications multiple times a day. Prescriptions for other medications were sent to [facility] per your request. Contact your primary care doctor for follow-up. Prescriptions: New cyclobenzaprine 10 mg tablet 10 mg PO TID PRN (Reason: muscle spasm) Qty: 20 0RF hydrocodone-acetaminophen 5-325 mg tablet 1 tab PO Q4-6H PRN (Reason: pain) Qty: 14 0RF No Action fluticasone propionate [Flonase Allergy Relief] 50 mcg/actuation spray,suspension 2 spray NASAL DAILY Qty: 18.2 0RF Rx Instructions: administer into each nostril hydrochlorothiazide 12.5 mg tablet 12.5 mg PO Patient Comments: TAKE 1 TABLET BY MOUTH ONCE DAILY levothyroxine 150 mcg tablet 150 mcg PO DAILY Patient Comments: TAKE 1 TABLET BY MOUTH ONCE DAILY fluoxetine PO albuterol sulfate [ProAir HFA] 90 mcg/actuation HFA aerosol inhaler 2 puff INHALATION Q4H PRN (Reason: Shortness Of Breath Or Wheezing) Patient Comments: INHALE 2 PUFFS EVERY 4 HOURS NEEDED FOR WHEEZING OR SHORTNESS OFBREATH Referrals: Doug Martin DO [Primary Care Provider] - Stand Alone Forms: Patient Portal/API
[2023-08-09] MEDS: HYDROMORPHONE 1 MG INJ IM (09:52)
[2023-08-09] MEDS: KETOROLAC 30 MG/ML VIAL IM (09:53)
== END 2023-08-09 10:10 | disposition home or self-care (01) ==
PROVIDERS: Emergency Provider Emergency Medicine; PCP Family Medicine
DX: M54.50 Low back pain, unspecified (principal)
CPT/HCPCS: 96372; 99283; J1170; J1885

== ENCOUNTER 2023-08-18 21:03 | Emergency (ER) | payer OTHER, MEDICAID, SELFPAY ==
[2023-08-18] VITALS (14 sets, daily range): BP systolic 128–161; BP diastolic 68–104; PULSE 56–78; RESP 14–40; TEMP 36.1; O2SAT 94–100; BMI 36.5
[2023-08-18] MEDS: ONDANSETRON 4 MG/2 ML INJ IV (21:34)
[2023-08-18 21:41] LABS: Add Manual Diff / Slide Review NO; Basophils Absolute Auto 100 /uL (0-100); Basophils Percent Auto 0.7 % (0-2); Eosinophils Absolute Auto 100 /uL (0-450); Eosinophils Percent Auto 1.2 % (2-4); Hematocrit 41.6 % (36-46); Hemoglobin 14.2 g/dL (12.0-16.0); Lymphocytes Absolute Auto 2500 /uL (1100-4500); Lymphocytes Percent Auto 23.6 % (25-40); Mean Corpuscular HGB Conc 34.2 % (30-36); Mean Corpuscular Hemoglobin 30.3 PG (26-34); Mean Corpuscular Volume 88.6 fL (80-100); Monocytes Absolute Auto 700 /uL (0-900); Monocytes Percent Auto 6.6 % (3-14); Neutrophils Absolute Auto 7100 /uL (1500-7000); Neutrophils Percent Auto 67.9 % (50-75); Platelet Count 233 X10^3/uL (150-400); Red Cell Distribution Width 12.9 % (11.6-14.8); White Blood Cell Count 10.5 X10^3/uL (4.5-11.0)
[2023-08-18 21:53] LABS: Alanine Aminotransferase 37 IU/L (<35); Albumin 4.9 g/dL (3.5-5.0); Albumin Globulin Ratio 1.2 (1.0-2.8); Alkaline Phosphatase 82 U/L (38-126); Aspartate Aminotransferase 30 IU/L (14-36); BUN Creatinine Ratio 22.2 (6-22); Bilirubin Total 0.6 mg/dL (0.2-1.3); Blood Urea Nitrogen 18 mg/dL (7-17); Calcium 9.9 mg/dL (8.4-10.2); Carbon Dioxide 25 mmol/L (22-32); Chloride 103 mmol/L (98-107); Estimated Glomerular Filt Rate > 60 mL/min (>60); Globulin 4.1 g/dL (1.7-4.1); Glucose 117 mg/dL (70-100); HEMOLYSIS < 15 (0-50); Potassium 3.4 mmol/L (3.4-5.1); Sodium 137 mmol/L (137-145)
[2023-08-18 22:27] LABS: Lipase 209 U/L (23-300)
[2023-08-18] MEDS: SODIUM CHLORIDE 0.9% 1,000 ML 1000 ML IV (22:33)
--- NOTE | 2023-08-18 22:43 | PC.NURSE ---
intermittent bradycardia noted on the monitor, lowest HR 40's; Dr. Calvin notified. No new orders. Pt ambulated to the BR with RN, reported feeling weak and tired. Bakc to bed without issue. on all monitoring equipment. EKG obtained and given to Dr. Calvin.
[2023-08-18 22:48] LABS: Ur Creatinine Normal (Normal); Ur Specific Gravity Normal (Normal); Urine Amphetamines Negative (Negative); Urine Barbiturates Negative (Negative); Urine Benzodiazepines Negative (Negative); Urine Cocaine Negative (Negative); Urine MDMA Negative (Negative); Urine Methadone Negative (Negative); Urine Methamphetamines Negative (Negative); Urine Opiates Negative (Negative); Urine Oxycodone Negative (Negative); Urine Phencyclidine Negative (Negative); Urine THC Positive (Negative); Urine Tricyclic Antidepressant Negative (Negative); Urine pH Normal (Normal)
[2023-08-18 22:48] LABS: Adenovirus Not Detected (Not Detect); B. parapertussis Not Detected (Not Detecte); Bordetella pertussis Not Detected (Not Detect); Chlamydophila pneumoniae Not Detected (Not Detect); Coronavirus 229E Not Detected (Not Detect); Coronavirus HKU1 Not Detected (Not Detect); Coronavirus NL 63 Not Detected (Not Detect); Coronavirus OC43 Not Detected (Not Detect); Human Metapneumovirus Not Detected (Not Detect); Human Rhinovirus/Enterovirus Not Detected (Not Detect); Influenza A Not Detected (Not Detect); Influenza B Not Detected (Not Detect); Mycoplasma pneumoniae Not Detected (Not Detect); Parainfluenza Virus 1 Not Detected (Not Detect); Parainfluenza Virus 2 Not Detected (Not Detect); Parainfluenza Virus 3 Not Detected (Not Detect); Parainfluenza Virus 4 Not Detected (Not Detect); Respiratory Syncytial Virus Not Detected (Not Detect); SARS- CoV-2 Not Detected (Not Detecte)
[2023-08-18 22:54] LABS: Urine Volume 10mL (spun)
[2023-08-18 22:55] LABS: Bacteria Urine Many (>30); Culture Indicated Urine Cult Not Indicated; RBC Urine 0-1/HPF (0-5/HPF); Squamous Epithelial Cell Urine 1-5 /HPF (0-5/HPF); WBC Urine 0-1/HPF (0-5/HPF)
--- NOTE | 2023-08-18 23:09 | ED.NAVMDI ---
HPI - Nausea/Vomiting/Diarrhea General Chief complaint: Nausea/Vomiting/Diarrhea Stated complaint: vomiting, diarrhea Time Seen by Provider: 08/18/23 22:16 Source: patient and family Mode of arrival: Ambulatory History of Present Illness HPI Narrative: Patient is a healthy 33-year-old female history of Mane's, factor 5 Leiden not on medication presenting today with sudden onset headache nausea and vomiting. She does not typically get migraines or headaches. She says she was in her normal state of health today and then at 6:30 p.m. she got a headache in the center of her head and then over the next 30 minutes progress pretty bad. She threw up numerous times. No real abdominal pain. She did feels like she is some numbness tingling all over her body and in her hands and feet feel cold. She is afebrile. She is sensitive to light and noise. Related Data Home Medications Medication Instructions Recorded Confirmed albuterol sulfate 90 mcg/actuation 2 puff inhalation Q4H PRN 04/03/19 10/05/22 aerosol inhaler (ProAir HFA) Shortness Of Breath Or Wheezing fluoxetine PO 10/05/22 10/05/22 hydrochlorothiazide 12.5 mg tablet 12.5 mg PO 10/05/22 10/05/22 levothyroxine 150 mcg tablet 150 mcg PO DAILY 10/05/22 10/05/22 Previous Rx's Medication Instructions Recorded fluticasone propionate 50 2 spray intranasal DAILY #18.2 mL 02/15/20 mcg/actuation nasal spray,suspension (Flonase Allergy Relief) cyclobenzaprine 10 mg tablet 10 mg PO TID PRN muscle spasm #20 08/09/23 tabs hydrocodone 5 mg-acetaminophen 325 1 tab PO Q4-6H PRN pain #14 tabs 08/09/23 mg tablet Allergies Allergy/AdvReac Type Severity Reaction Status Date / Time warfarin Allergy Mild Factor V Verified 08/18/23 21:17 Patient History Medical History Factor 5 Leiden mutation, heterozygous Gestational hypertension Bilateral carpal tunnel syndrome Hypercholesteremia (~01/2020) Tailbone injury (~1999) Bronchitis (~1999) Pneumonia (~1999) Asthma (~1997) Hypertension (~01/2020) Tibia fracture (~2018) Stye Depression (11/16/15) Anxiety (11/16/15) Right knee sprain Acute headache Vasovagal reaction (~2017) Whiplash injuries Hemoptysis Family History Brother Age: 26 Bipolar affective disorder, remission status unspecified Father Age: 60 Type 2 diabetes mellitus without complication, unspecified middle or intermediate school principal insulin use status Heart disease Essential hypertension Hyperlipidemia Cancer Myocardial infarction High threshold of implanted defibrillator Grandmother Cancer Smoker Mental health problem Mother Age: 58 Mental health problem Hypothyroid PTSD (post-traumatic stress disorder) Factor V deficiency, congenital Grandmother Type 2 diabetes mellitus without complication, unspecified residential insulin use status Mental health problem Sister Age: 35 Bipolar affective disorder, remission status unspecified Heart murmur Congenital heart defect Factor V deficiency, congenital Sister Age: 29 Adrenal gland disorder Hypothyroid Congenital adrenal hyperplasia PCOS (polycystic ovarian syndrome) Migraines Grandfather Cancer Smoker Grandfather Myocardial infarction Family/Other Schizophrenia Family estrangement Social History marital status: unmarried,living together household members: significant other lives independently: Yes caregiver/support person: No housing: other ([place] in [place] pets and animals: Yes (2 dog (aware, dogs are very gentle w kids)) education level: high school (Did not finish high school. Wants to get GED. 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 She will avoid. ) alcohol intake: former (~2 drinks per week, formerly when not . None since conception. ) substance use type: marijuana (Stopped with diagnosis. ) during the past year weight has: increased > 10 lbs well-balanced diet: daily or most days daily servings fruits/ve-4 caffeine: Yes (One 12 oz breve latte daily. Aware of 200 mg precautions. ) Type(s) of exercise: walking frequency: 1-2 times per week duration: 30-45 minutes/day Smoking Status: Current every day smoker alcohol intake frequency: holidays/special occasions only Substance Use Type: marijuana Exam Initial Vital Signs Initial Vital Signs: Vital Signs Temperature 97 F L 08/18/23 21:17 Pulse Rate 77 08/18/23 21:17 Respiratory Rate 40 H 08/18/23 21:17 Blood Pressure 158/92 H 08/18/23 21:17 Pulse Oximetry 98 08/18/23 21:17 Oxygen Delivery Method Room Air 08/18/23 21:17 GENERAL: Alert pleasant 33-year-old female appears to not feel and in no acute distress. HEENT: Head atraumatic,EOMI, pupils reactive, face symmetric, neck is supple CARDIOVASCULAR: Regular rate and rhythm without murmurs, rubs or gallops. RESPIRATORY: Breath sounds equal bilaterally, no wheezes rales or rhonchi. ABDOMEN: Soft, nontender. Normoactive bowel sounds all 4 quadrants. No guarding or rebound. EXTREMITIES: Normal range of motion, no clubbing or edema. Neurovascularly intact NEUROLOGICAL: Alert and oriented x4.Normal gait and speech. Cranial nerves II through XII grossly intact. SKIN: Warm, dry, no laceration, no petechiae, no rashes or lesions. Course Orders Ordered: ED Orders 08/18/23 21:30 Complete Blood Count AUTO DIFF Stat Comprehensive Metabolic Panel Stat Lipase Stat 08/18/23 21:50 Respiratory Panel (Film Array) Stat 08/18/23 22:38 Urine Culture Stat Urine Drug Screen, Rapid Stat Urine Microscopic Stat 08/18/23 23:23 CT head/brain wo con Stat 08/19/23 EKG-12 Lead Routine EKG-12 Lead Routine Discontinued Medications Sodium Chloride (Normal Saline 0.9%) 1,000 mls @ 1,000 mls/hr IV BOLUS ONE Stop: 08/18/23 23:19 Last Infusion: 08/18/23 23:38 Dose: Infused Documented By: Admin: 08/18/23 22:33 Dose: 1,000 mls/hr Documented By: OSCAR Ketorolac Tromethamine (Ketorolac 30 Mg/Ml Vial) 15 mg IV NOW ONE Stop: 08/18/23 23:24 Last Admin: 08/18/23 23:32 Dose: 15 mg Documented By: OSCAR Ondansetron HCl (Ondansetron 4 Mg/2 Ml Inj) 4 mg IV NOW ONE Stop: 08/18/23 21:27 Last Admin: 08/18/23 21:34 Dose: 4 mg Documented By: MARIZOL Vital Signs Vital signs: Vital Signs - 8 hr 08/18/23 21:17 08/18/23 21:27 08/18/23 21:28 Temperature 97 F L Pulse Rate 77 78 78 Respiratory Rate 40 H 24 24 Blood Pressure 158/92 H Pulse Oximetry 98 100 Oxygen Delivery Method Room Air 08/18/23 21:28 08/18/23 21:30 08/18/23 21:54 Temperature Pulse Rate 75 56 L Respiratory Rate 24 18 Blood Pressure 161/104 H Pulse Oximetry 97 98 Oxygen Delivery Method 08/18/23 21:54 08/18/23 22:00 08/18/23 22:01 Temperature Pulse Rate 57 L Respiratory Rate 14 Blood Pressure 137/91 H 159/90 H Pulse Oximetry 99 Oxygen Delivery Method 08/18/23 22:01 08/18/23 22:15 08/18/23 22:15 Temperature Pulse Rate 62 62 Respiratory Rate 18 14 Blood Pressure 137/83 Pulse Oximetry 97 99 Oxygen Delivery Method 08/18/23 22:31 08/18/23 22:32 08/18/23 22:32 Temperature Pulse Rate 67 64 Respiratory Rate 20 17 Blood Pressure 149/93 H Pulse Oximetry 100 100 Oxygen Delivery Method 08/18/23 23:00 08/18/23 23:00 08/18/23 23:30 Temperature Pulse Rate 63 63 Respiratory Rate 19 16 Blood Pressure 128/70 Pulse Oximetry 96 94 Oxygen Delivery Method 08/18/23 23:46 08/18/23 23:46 08/18/23 23:57 Temperature Pulse Rate 66 63 Respiratory Rate 20 Blood Pressure 161/68 H Pulse Oximetry 95 99 Oxygen Delivery Method 08/18/23 23:57 08/19/23 00:00 08/19/23 00:00 Temperature Pulse Rate 61 Respiratory Rate 18 Blood Pressure 145/80 H 129/68 Pulse Oximetry 94 Oxygen Delivery Method Room Air 08/19/23 00:30 08/19/23 00:30 Temperature Pulse Rate 61 Respiratory Rate 19 Blood Pressure 125/70 Pulse Oximetry 94 Oxygen Delivery Method Room Air MDM - Nausea/Vomiting/Diarrhea Lab Data 08/18/23 21:30 08/18/23 21:30 Labs: Lab Results 08/18/23 08/18/23 08/18/23 Range/Units 21:30 21:50 22:38 WBC 10.5 (4.5-11.0) X10^3/uL RBC 4.70 (4.0-5.2) X10^6/uL Hgb 14.2 (12.0-16.0) g/dL Hct 41.6 (36-46) % MCV 88.6 (80-100) fL MCH 30.3 (26-34) PG MCHC 34.2 (30-36) % RDW 12.9 (11.6-14.8) % Plt Count 233 (150-400) X10^3/uL Neut % (Auto) 67.9 (50-75) % Lymph % (Auto) 23.6 L (25-40) % Crook % (Auto) 6.6 (3-14) % Eos % (Auto) 1.2 L (2-4) % Baso % (Auto) 0.7 (0-2) % Neut # (Auto) 7100 H (8619-3217) /uL Lymph # (Auto) 2500 (5889-5651) /uL Crook # (Auto) 700 (0-900) /uL Eos # (Auto) 100 (0-450) /uL Baso # (Auto) 100 (0-100) /uL Sodium 137 (137-145) mmol/L Potassium 3.4 (3.4-5.1) mmol/L Chloride 103 (98-107) mmol/L Carbon Dioxide 25 (22-32) mmol/L BUN 18 H (7-17) mg/dL Creatinine 0.81 (0.52-1.04) mg/dL Estimated GFR > 60 (>60) mL/min BUN/Creatinine Ratio 22.2 H (6-22) Glucose 117 H (70-100) mg/dL Calcium 9.9 (8.4-10.2) mg/dL Total Bilirubin 0.6 (0.2-1.3) mg/dL AST 30 (14-36) IU/L ALT 37 H (<35) IU/L Alkaline Phosphatase 82 (38-126) U/L Total Protein 9.0 H (6.3-8.2) g/dL Albumin 4.9 (3.5-5.0) g/dL Globulin 4.1 (1.7-4.1) g/dL Albumin/Globulin Ratio 1.2 (1.0-2.8) Lipase 209 (23-300) U/L Urine RBC 0-1/hpf (0-5/HPF) Urine WBC 0-1/hpf (0-5/HPF) Ur Squamous Epith Cells 1-5 /hpf (0-5/HPF) Urine Bacteria Many (>30) H (None) Ur Culture Indicated? Cult not indicated Vol Urine Centrifuged 10ml (spun) U Opiates 300ng/mL cut Negative (Negative) Ur Oxycodone Screen Negative (Negative) Urine Methadone Screen Negative (Negative) Ur Barbiturates Screen Negative (Negative) U Tricyclic Antidepress Negative (Negative) Ur Phencyclidine Scrn Negative (Negative) Ur Amphetamines Screen Negative (Negative) U Methamphetamines Scrn Negative (Negative) Ur MDMA Scrn (Ecstasy) Negative (Negative) U Benzodiazepines Scrn Negative (Negative) Urine Cocaine Screen Negative (Negative) U Marijuana (THC) Screen Positive H (Negative) Urine pH Normal (Normal) Urine Specific [place] Normal (Normal) Ur Creatinine Normal (Normal) Chlamy pneumoniae PCR Not detected (Not Detect) Adenovirus (PCR) Not detected (Not Detect) B.parapertussis DNA PCR Not detected (Not Detecte) Coronavirus OC43 (PCR) Not detected (Not Detect) Coronavirus HKU1 (PCR) Not detected (Not Detect) Coronavirus 229E (PCR) Not detected (Not Detect) SARS-CoV-2 (PCR) Not detected (Not Detecte) Coronavirus NL63 (PCR) Not detected (Not Detect) Human Metapneumovir PCR Not detected (Not Detect) Influenza Type A (PCR) Not detected (Not Detect) Influenza Type B (PCR) Not detected (Not Detect) M. pneumoniae (PCR) Not detected (Not Detect) Parainfluenza 1 (PCR) Not detected (Not Detect) Parainfluenza 2 (PCR) Not detected (Not Detect) Parainfluenza 3 (PCR) Not detected (Not Detect) Parainfluenza 4 (PCR) Not detected (Not Detect) RSV (PCR) Not detected (Not Detect) Entero/Rhino (PCR) Not detected (Not Detect) Point of Care Testing Test Results Negative Urine Dip Bedside Urine Glucose Negative Bedside Urine Bilirubin - Negative Bedside Urine Ketone - Negative Urine Specific [place] 1.020 Bedside Urine Occult Blood ++ Bedside Urine pH 6.0 Bedside Urine Protein +/- 15 Bedside Urine Urobilinogen - Negative Bedside Urine Nitrite - Negative Bedside Urine Leukocytes - Negative Esterase Imaging Data CT scan - head: Radiologist's Impression: PROCEDURE: CT HEAD/BRAIN WO CON INDICATIONS: worst headache of life TECHNIQUE: Noncontrast 4.5 mm thick angled axial sections acquired from the foramen magnum to the vertex, with coronal and sagittal reformats. For radiation dose reduction, the following was used: automated exposure control, adjustment of mA and/or kV according to patient size. COMPARISON: [facility], CT, CT HEAD/BRAIN WO CON, 04/03/2019, 18:35. FINDINGS: Image quality: Diagnostic. CSF spaces: Basal cisterns are patent. No extra-axial fluid collections. Ventricles are normal in size and shape. Brain: No midline shift. No intracranial masses or hemorrhage. Renee-white matter interface is normal. Skull and face: Calvarium and visualized facial bones are intact, without suspicious lesions. Sinuses: Visualized sinuses and mastoids are clear. IMPRESSION: No acute intracranial pathology. Dictated by: Jaron Rivera M.D. on 08/19/2023 at 0:02 MDM Narrative Medical decision making narrative: Patient 33-year-old female history of factor 5 Leiden presents today with sudden onset of headache nausea vomiting. She has no neurologic deficits. She overall appears to not feel well he is sensitive to light and noise. She does not typically get headaches this is the worst headache of her life. She is received fluids and Zofran and that actually has helped quite a bit. She is afebrile she has no neck pain no concern for meningitis. Blood work has been reviewed overall reassuring without any clinical significant abnormalities. Imaging head CT does not show any intracranial hemorrhage or abnormality Patient is given Toradol in his sleeping she is feeling much better. Low suspicion for subarachnoid hemorrhage. She has symptoms consistent with migraine headaches although she has not previously gotten migraines. She overall feels better and ready and able to go home. Discharge Plan Departure Patient Disposition: Home Clinical Impression: Headache, migraine Instructions: Migraine -- Adult Activity Restrictions/Additional Instructions: *You have been diagnosed with migraine headache *What to do: At this time hopefully go home and sleep and feel better. *Continue to take medications as directed Tylenol 1000 mg every 6 hours for [id number] pain Motrin 600 mg every 6 hours for ulei-pl-[id number] pain *Follow up with your primary care provider in 2-3 days or call [phone] *Return to ER if you should have increasing pain persistent vomiting or any new, worsening or concerning symptoms Prescriptions: No Action fluticasone propionate [Flonase Allergy Relief] 50 mcg/actuation spray,suspension 2 spray NASAL DAILY Qty: 18.2 0RF Rx Instructions: administer into each nostril hydrochlorothiazide 12.5 mg tablet 12.5 mg PO Patient Comments: TAKE 1 TABLET BY MOUTH ONCE DAILY levothyroxine 150 mcg tablet 150 mcg PO DAILY Patient Comments: TAKE 1 TABLET BY MOUTH ONCE DAILY fluoxetine PO cyclobenzaprine 10 mg tablet 10 mg PO TID PRN (Reason: muscle spasm) Qty: 20 0RF hydrocodone-acetaminophen 5-325 mg tablet 1 tab PO Q4-6H PRN (Reason: pain) Qty: 14 0RF albuterol sulfate [ProAir HFA] 90 mcg/actuation HFA aerosol inhaler 2 puff INHALATION Q4H PRN (Reason: Shortness Of Breath Or Wheezing) Patient Comments: INHALE 2 PUFFS EVERY 4 HOURS NEEDED FOR WHEEZING OR SHORTNESS OFBREATH Referrals: Doug Martin DO [Primary Care Provider] - Stand Alone Forms: Patient Portal/API
--- NOTE | 2023-08-18 23:23 | DI.CT.S_ITS ---
PROCEDURE: CT HEAD/BRAIN WO CON INDICATIONS: worst headache of life TECHNIQUE: Noncontrast 4.5 mm thick angled axial sections acquired from the foramen magnum to the vertex, with coronal and sagittal reformats. For radiation dose reduction, the following was used: automated exposure control, adjustment of mA and/or kV according to patient size. COMPARISON: [facility], CT, CT HEAD/BRAIN WO CON, 04/03/2019, 18:35. FINDINGS: Image quality: Diagnostic. CSF spaces: Basal cisterns are patent. No extra-axial fluid collections. Ventricles are normal in size and shape. Brain: No midline shift. No intracranial masses or hemorrhage. Renee-white matter interface is normal. Skull and face: Calvarium and visualized facial bones are intact, without suspicious lesions. Sinuses: Visualized sinuses and mastoids are clear. IMPRESSION: No acute intracranial pathology. Dictated by: Jaron Rivera M.D. on 08/19/2023 at 0:02 Approved by: Jaron Rivera M.D. on 08/19/2023 at 0:03
[2023-08-18] MEDS: KETOROLAC 30 MG/ML VIAL 15 MG IV (23:32)
[2023-08-19] VITALS: BP 129/68; PULSE 61; RESP 18; O2SAT 94
[2023-08-19 00:30] VITALS: BP 125/70; PULSE 61; RESP 19; O2SAT 94
== END 2023-08-19 00:40 | disposition home or self-care (01) ==
PROVIDERS: Emergency Provider Emergency Medicine; PCP Family Medicine
DX: G43.909 Migraine, unspecified, not intractable, without status migrainosus (principal); I10 Essential (primary) hypertension; F17.200 Nicotine dependence, unspecified, uncomplicated
CPT/HCPCS: 36415; 70450; 80053; 80305; 81003; 81015; 81025; 83690; 85025; 87086; 87633; 93005; 96374; 96375; 99284; J1885; J2405

== ENCOUNTER → 2023-09-20 09:44 | Outpatient (CLI) | payer OTHER, MEDICAID, SELFPAY ==
[2023-09-20 10:40] LABS: Add Manual Diff / Slide Review NO; Basophils Absolute Auto 100 /uL (0-100); Eosinophils Absolute Auto 100 /uL (0-450); Eosinophils Percent Auto 1.7 % (2-4); Hematocrit 41.8 % (36-46); Hemoglobin 14.2 g/dL (12.0-16.0); Lymphocytes Absolute Auto 1600 /uL (1100-4500); Lymphocytes Percent Auto 23.4 % (25-40); Mean Corpuscular HGB Conc 33.9 % (30-36); Mean Corpuscular Hemoglobin 30.3 PG (26-34); Mean Corpuscular Volume 89.6 fL (80-100); Monocytes Absolute Auto 500 /uL (0-900); Monocytes Percent Auto 6.8 % (3-14); Neutrophils Absolute Auto 4500 /uL (1500-7000); Neutrophils Percent Auto 67.1 % (50-75); Platelet Count 199 X10^3/uL (150-400); Red Blood Cell Count 4.67 X10^6/uL (4.0-5.2); White Blood Cell Count 6.7 X10^3/uL (4.5-11.0)
[2023-09-20 11:04] LABS: Erythrocyte Sedimentation Rate 5 MM/HR (0-20)
[2023-09-20 11:22] LABS: Alanine Aminotransferase 31 IU/L (<35); Albumin 4.5 g/dL (3.5-5.0); Albumin Globulin Ratio 1.4 (1.0-2.8); Alkaline Phosphatase 70 U/L (38-126); Aspartate Aminotransferase 25 IU/L (14-36); BUN Creatinine Ratio 25.8 (6-22); Bilirubin Total 0.5 mg/dL (0.2-1.3); Blood Urea Nitrogen 17 mg/dL (7-17); Calcium 9.6 mg/dL (8.4-10.2); Carbon Dioxide 27 mmol/L (22-32); Chloride 105 mmol/L (98-107); Estimated Glomerular Filt Rate > 60 mL/min (>60); Globulin 3.2 g/dL (1.7-4.1); Glucose 88 mg/dL (70-100); HEMOLYSIS < 15 (0-50); Potassium 4.2 mmol/L (3.4-5.1); Sodium 139 mmol/L (137-145); Total Protein 7.7 g/dL (6.3-8.2)
[2023-09-20 11:33] LABS: Vitamin D 25 Hydroxy (D3) 32.6 ng/mL (30.0-100.0)
[2023-09-20 11:47] LABS: TSH w/ Reflex to FT4 3.67 uIU/mL (0.47-4.68)
[2023-09-20 12:04] LABS: Vitamin B12 560 pg/mL (239-931)
[2023-09-20 12:58] LABS: Hemoglobin A1C% w Est Avg Glu 5.6 % (4.0-6.0)
== END ==
PROVIDERS: PCP Nurse Practitioner Family; Referring Provider Nurse Practitioner Family; Visit Provider Nurse Practitioner Family
DX: E03.9 Hypothyroidism, unspecified (principal); R53.83 Other fatigue; E66.9 Obesity, unspecified
CPT/HCPCS: 36415; 80053; 82306; 82607; 83036; 84443; 85025; 85651

== ENCOUNTER 2024-01-23 18:43 | Emergency (ER) | payer SELFPAY ==
--- NOTE | 2024-01-23 18:52 | DI.RAD.S_ITS ---
PROCEDURE: XR CHEST 1V INDICATIONS: Chest pain TECHNIQUE: One view of the chest was acquired. COMPARISON: None. FINDINGS: Surgical changes and devices: None. Lungs and pleura: Subtle hazy opacity at right lung base is seen, small infiltrate cannot be excluded. Left lung is clear. No pleural effusions or pneumothorax. Mediastinum: Mediastinal contours appear normal. Heart size is normal. Bones and chest wall: No suspicious bony lesions. Overlying soft tissues appear unremarkable. IMPRESSION: Suggestion of small infiltrate versus atelectasis at right lung base. No pleural effusion or pneumothorax. Dictated by: Tre Pathak M.D. on 01/23/2024 at 19:29 Approved by: Tre Pathak M.D. on 01/23/2024 at 19:29
[2024-01-23 18:57] VITALS: BP 153/94; PULSE 84; RESP 16; TEMP 36.3; O2SAT 96; BMI 37.2
--- NOTE | 2024-01-23 19:02 | EKG_ITS ---
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
--- NOTE | 2024-01-23 19:08 | ED.BACK ---
HPI - Back Pain/Injury General Chief Complaint: Back Pain/Injury Stated Complaint: chest px Time Seen by Provider: 01/23/24 18:51 Source: patient Mode of arrival: Ambulatory Limitations: no limitations History of Present Illness HPI Narrative: Patient is a 33-year-old female here for evaluation of right-sided back/side pain. She states it started earlier this evening. No specific trauma. States it starts in her back and radiates around the front. Causes her to pain when she takes a deep breath. Causes her to have pain when she moves her arm but also feel somewhat better when doing this. No skin changes. She did take Flexeril prior to arrival without much improvement. No fevers. Related Data Previous Rx's Medication Instructions Recorded mupirocin 2 % topical ointment 1 applic topical DAILY #15 grams 09/20/23 sertraline 25 mg tablet 25 mg PO DAILY #30 tabs 09/20/23 Allergies Allergy/AdvReac Type Severity Reaction Status Date / Time warfarin Allergy Mild Factor V Verified 10/03/23 14:58 Review of Systems Review of Systems Narrative: See HPI Cardiovascular Cardiovascular: Reports system reviewed and no additional complaints, except as documented Respiratory Respiratory: Reports system reviewed and no additional complaints, except as documented Integumentary/Breasts Skin/Breast: Reports system reviewed and no additional complaints, except as documented Patient History Medical History Factor 5 Leiden mutation, heterozygous Gestational hypertension Bilateral carpal tunnel syndrome Hypercholesteremia (~01/2020) Tailbone injury (~1999) Bronchitis (~1999) Pneumonia (~1999) Asthma (~1997) Hypertension (~01/2020) Tibia fracture (~2017) Stye Depression (11/16/15) Anxiety (11/16/15) Right knee sprain Acute headache Vasovagal reaction (~2016) Whiplash injuries Hemoptysis Family History Brother Age: 26 Bipolar affective disorder, remission status unspecified Father Age: 60 Type 2 diabetes mellitus without complication, 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 Heart disease Essential hypertension Hyperlipidemia Cancer Myocardial infarction High threshold of implanted defibrillator Grandmother Cancer Smoker Mental health problem Mother Age: 58 Mental health problem Hypothyroid PTSD (post-traumatic stress disorder) Factor V deficiency, congenital Grandmother Type 2 diabetes mellitus without complication, 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 Mental health problem Sister Age: 35 Bipolar affective disorder, remission status unspecified Heart murmur Congenital heart defect Factor V deficiency, congenital Sister Age: 29 Adrenal gland disorder Hypothyroid Congenital adrenal hyperplasia PCOS (polycystic ovarian syndrome) Migraines Grandfather Cancer Smoker Grandfather Myocardial infarction Family/Other Schizophrenia Family estrangement Social History marital status: unmarried,living together household members: significant other lives independently: Yes caregiver/support person: No housing: other (Live in in permanent park in [place].) pets and animals: Yes (2 dog (aware, dogs are very gentle w kids)) education level: high school (Did not finish high school. Wants to get GED. 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 She will avoid. ) alcohol intake: former (~2 drinks per week, formerly when not . None since conception. ) substance use type: marijuana (Stopped with diagnosis. ) during the past year weight has: increased > 10 lbs well-balanced diet: daily or most days daily servings fruits/ve-4 caffeine: Yes (One 12 oz breve latte daily. Aware of 200 mg precautions. ) Type(s) of exercise: walking frequency: 1-2 times per week duration: 30-45 minutes/day Smoking Status: Never smoker alcohol intake frequency: holidays/special occasions only Substance Use Type: marijuana Exam Initial Vital Signs Initial Vital Signs: Vital Signs Temperature 97.3 F L 01/23/24 18:57 Pulse Rate 84 01/23/24 18:57 Respiratory Rate 16 01/23/24 18:57 Blood Pressure 153/94 H 01/23/24 18:57 Pulse Oximetry 96 01/23/24 18:57 Oxygen Delivery Method Room Air 01/23/24 18:57 Chest Other: Discomfort with palpation of right-sided posterior/lateral chest wall. Resp Effort & Inspection: normal respiratory effort Auscultation: clear to auscultation bilaterally Cardio Rate: regular rate Rhythm: regular rhythm Skin General: no rashes or lesions noted Neuro General: patient alert, patient awake and moves all extremities Course Orders Ordered: ED Orders 01/23/24 18:52 XR chest 1V Stat EKG-12 Lead Stat Discontinued Medications Cyclobenzaprine HCl (Cyclobenzaprine 10 Mg Prepack) 1 bottle MISC DIRECTED ONE Stop: 01/23/24 19:59 Last Admin: 01/23/24 20:06 Dose: 1 bottle Documented By: SOLO Ketorolac Tromethamine (Ketorolac 30 Mg/Ml Vial) 30 mg IM NOW ONE Stop: 01/23/24 19:59 Last Admin: 01/23/24 20:06 Dose: 30 mg Documented By: SOLO Lorazepam (Lorazepam 0.5 Mg Tablet) 1 mg PO NOW ONE Stop: 01/23/24 19:09 Last Admin: 01/23/24 19:10 Dose: 1 mg Documented By: SOLO Vital Signs Vital signs: Vital Signs - 8 hr 01/23/24 18:57 01/23/24 20:16 Temperature 97.3 F L Pulse Rate 84 69 Respiratory Rate 16 15 Blood Pressure 153/94 H 126/67 Pulse Oximetry 96 98 Oxygen Delivery Method Room Air Room Air MDM - Back Pain/Injury Imaging Data Chest x-ray: Radiologist's Impression: PROCEDURE: XR CHEST 1V INDICATIONS: Chest pain TECHNIQUE: One view of the chest was acquired. COMPARISON: None. FINDINGS: Surgical changes and devices: None. Lungs and pleura: Subtle hazy opacity at right lung base is seen, small infiltrate cannot be excluded. Left lung is clear. No pleural effusions or pneumothorax. Mediastinum: Mediastinal contours appear normal. Heart size is normal. Bones and chest wall: No suspicious bony lesions. Overlying soft tissues appear unremarkable. IMPRESSION: Suggestion of small infiltrate versus atelectasis at right lung base. No pleural effusion or pneumothorax. ECG Data Attestation: I personally reviewed and interpreted this ECG as follows: Interpretation: Sinus rhythm Ventricular rate is 74 Normal axis QRS Normal QTC No ST T wave changes MDM Narrative Medical decision making narrative: Chest x-ray is unremarkable. EKG is unremarkable. Exam has reproducible right-sided chest discomfort. Most consistent with muscular etiology. No skin changes concerning for zoster. Low suspicion for pneumonia. Afebrile. Recommended conservative measures to include anti-inflammatories and muscle relaxers. She was given return precautions and follow-up instructions. He expressed understanding and agreement with plan. Discharge Plan Departure Patient Disposition: Home Clinical Impression: Muscle spasm Instructions: DI for Muscle Strain Activity Restrictions/Additional Instructions: Your physical exam today is very consistent with having muscle spasms most likely of the intercostal muscles. This should improve over the next 1-2 days. You can use Tylenol/ibuprofen. I also recommend heat and also light stretching. You can use the muscle relaxers as needed as well. Prescriptions: No Action sertraline 25 mg tablet 25 mg PO DAILY Qty: 30 0RF Rx Instructions: Start with 25 mg per day x7 days then increase to 50 mg (2 tabs) mupirocin 2 % ointment 1 applic topical DAILY Qty: 15 0RF Rx Instructions: Apply to affected skin for 7-14 days. Referrals: Radha Rutledge FNP-ROYCE [Primary Care Provider] - Stand Alone Forms: Patient Portal/API
[2024-01-23] MEDS: LORazepam 0.5 MG TABLET 1 MG PO (19:10)
[2024-01-23] MEDS: KETOROLAC 30 MG/ML VIAL IM (20:06)
[2024-01-23] MEDS: CYCLOBENZAPRINE 10 MG PREPACK 1 BOTTLE MISC (20:06)
[2024-01-23 20:16] VITALS: BP 126/67; PULSE 69; RESP 15; O2SAT 98
== END 2024-01-23 20:18 | disposition home or self-care (01) ==
PROVIDERS: Emergency Provider Emergency Medicine; PCP Nurse Practitioner Family
DX: M62.838 Other muscle spasm (principal); R07.9 Chest pain, unspecified
CPT/HCPCS: 71045; 93005; 96372; 99283; 99284; J1885

== ENCOUNTER 2024-03-02 12:27 | Emergency (ER) | payer SELFPAY ==
[2024-03-02 12:38] VITALS: BP 130/86; PULSE 94; RESP 14; TEMP 36.3; O2SAT 99; BMI 36.9
--- NOTE | 2024-03-02 13:21 | DI.CT.S_ITS ---
PROCEDURE: CT ABDOMEN PELVIS WO CON INDICATIONS: hematuria, back pain TECHNIQUE: Axial sections were acquired from the lung bases to the pubic symphysis. Coronal and sagittal reformats were performed. For radiation dose reduction, the following was used: automated exposure control, adjustment of mA and/or kV according to patient size. COMPARISON: None. FINDINGS: Lower thorax: The lung bases are clear. Heart size normal. No hiatal hernia. Liver: Normal in size and attenuation. No contour deformity present. Biliary system: No calcified cholelithiasis or pericholecystic inflammation. No intra or extrahepatic bile duct dilatation. Pancreas: Unremarkable without mass or inflammation evident. Spleen: Normal in size and density. Adrenals: Normal morphology and density. Reproductive system: Unremarkable as visualized. Urinary system: 1-2 mm nonobstructive right renal calculus. No hydronephrosis present bilaterally. Gastrointestinal system: The bowel is unremarkable without evidence of bowel obstruction or inflammation. The stomach appears unremarkable. Appendix: Normal appendix identified. No evidence of appendicitis.6 Peritoneal spaces: No mesenteric or retroperitoneal adenopathy. No free air. No free fluid. Vasculature: The IVC, aorta and iliac vasculature are unremarkable. Abdominal wall: Abdominal wall intact without evidence of ventral or inguinal hernias. Musculoskeletal: Normal bone mineralization. No acute fractures. IMPRESSION: Tiny nonobstructive right renal calculi. No hydronephrosis bilaterally. 6 Approved by: Selvin León M.D. on 03/02/2024 at 14:00
[2024-03-02 13:43] LABS: Amorphous Sediment Urine 3+; Bacteria Urine Occasional (0-1); RBC Urine 0-1/HPF (0-5/HPF); Squamous Epithelial Cell Urine 1-5 /HPF (0-5/HPF); Urine Volume 10mL (spun); WBC Urine None Seen (0-5/HPF)
[2024-03-02 13:44] LABS: Culture Indicated Urine Cult Not Indicated
[2024-03-02 13:55] LABS: Add Manual Diff / Slide Review NO; Basophils Absolute Auto 100 /uL (0-100); Basophils Percent Auto 0.8 % (0-2); Eosinophils Absolute Auto 100 /uL (0-450); Eosinophils Percent Auto 0.7 % (2-4); Hemoglobin 14.3 g/dL (12.0-16.0); Lymphocytes Absolute Auto 1700 /uL (1100-4500); Lymphocytes Percent Auto 18.4 % (25-40); Mean Corpuscular Hemoglobin 30.3 PG (26-34); Monocytes Absolute Auto 500 /uL (0-900); Monocytes Percent Auto 5.3 % (3-14); Neutrophils Absolute Auto 6900 /uL (1500-7000); Neutrophils Percent Auto 74.8 % (50-75); Platelet Count 221 X10^3/uL (150-400); Red Blood Cell Count 4.72 X10^6/uL (4.0-5.2); Red Cell Distribution Width 13.2 % (11.6-14.8); White Blood Cell Count 9.2 X10^3/uL (4.5-11.0)
[2024-03-02 14:06] LABS: Lactate (Lactic Acid) 1.5 mmol/L (0.7-2.1)
[2024-03-02 14:07] LABS: Alanine Aminotransferase 34 IU/L (<35); Albumin 4.7 g/dL (3.5-5.0); Albumin Globulin Ratio 1.4 (1.0-2.8); Alkaline Phosphatase 77 U/L (38-126); Aspartate Aminotransferase 30 IU/L (14-36); BUN Creatinine Ratio 22.2 (6-22); Bilirubin Total 0.7 mg/dL (0.2-1.3); Blood Urea Nitrogen 20 mg/dL (7-17); Calcium 9.5 mg/dL (8.4-10.2); Carbon Dioxide 24 mmol/L (22-32); Chloride 104 mmol/L (98-107); Estimated Glomerular Filt Rate > 60 mL/min (>60); Globulin 3.4 g/dL (1.7-4.1); Glucose 132 mg/dL (70-100); HEMOLYSIS < 15 (0-50); Potassium 3.7 mmol/L (3.4-5.1); Sodium 136 mmol/L (137-145); Total Protein 8.1 g/dL (6.3-8.2)
--- NOTE | 2024-03-02 14:57 | PC.NURSE ---
Right lower back pain; faveors leaning on left side or laying back. Ambulatory.
--- NOTE | 2024-03-02 15:50 | ED_ITS ---
HPI - Back Pain/Injury <Curt Fuentes PA-C - Last Filed: 03/02/24 16:24> General Chief Complaint: Back Pain/Injury Stated Complaint: back px,sent by [facility] r/u spinal stenosis Time Seen by Provider: 03/02/24 13:21 Source: patient History of Present Illness HPI Narrative: This patient is an obese 33-year-old female that was seen at the walk-in clinic earlier today and prescribed dexamethasone as well as Flexeril and provided Toradol IM for her acute low back pain. She was informed that she may or may not have spinal stenosis and the patient wanted to come to the ER today for an MRI to rule out, ?spinal stenosis syncopal. She denies saddle anesthesia as well as bowel or bladder incontinence. Patient also denies night sweats, fever, chills, chest pain, shortness of breath, dysuria, flank pain or gross hematuria. 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 The patient was noted to have hematuria on her urinalysis. Related Data Previous Rx's Medication Instructions Recorded mupirocin 2 % topical ointment 1 applic topical DAILY #15 grams 09/20/23 sertraline 25 mg tablet 25 mg PO DAILY #30 tabs 09/20/23 tamsulosin 0.4 mg capsule (Flomax) 0.4 mg PO DAILY #7 caps 03/02/24 Allergies Allergy/AdvReac Type Severity Reaction Status Date / Time warfarin Allergy Mild Factor V Verified 10/03/23 14:58 Review of Systems <Curt Fuentes PA-C - Last Filed: 03/02/24 16:24> Review of Systems Narrative: General: See HPI MSK: See HPI All other review of systems have been reviewed and are ultimately negative unless otherwise stated in the HPI Patient History <Curt Fuentes PA-C - Last Filed: 03/02/24 16:24> Medical History Factor 5 Leiden mutation, heterozygous Gestational hypertension Bilateral carpal tunnel syndrome Hypercholesteremia (~01/2020) Tailbone injury (~1999) Bronchitis (~1999) Pneumonia (~1999) Asthma (~1997) Hypertension (~01/2020) Tibia fracture (~2018) Stye Depression (11/16/15) Anxiety (11/16/15) Right knee sprain Acute headache Vasovagal reaction (~2017) Whiplash injuries Hemoptysis Family History Brother Age: 26 Bipolar affective disorder, remission status unspecified Father Age: 60 Type 2 diabetes mellitus without complication, unspecified mcc insulin use status Heart disease Essential hypertension Hyperlipidemia Cancer Myocardial infarction High threshold of implanted defibrillator Grandmother Cancer Smoker Mental health problem Mother Age: 58 Mental health problem Hypothyroid PTSD (post-traumatic stress disorder) Factor V deficiency, congenital Grandmother Type 2 diabetes mellitus without complication, unspecified mcc insulin use status Mental health problem Sister Age: 35 Bipolar affective disorder, remission status unspecified Heart murmur Congenital heart defect Factor V deficiency, congenital Sister Age: 29 Adrenal gland disorder Hypothyroid Congenital adrenal hyperplasia PCOS (polycystic ovarian syndrome) Migraines Grandfather Cancer Smoker Grandfather Myocardial infarction Family/Other Schizophrenia Family estrangement Social History marital status: unmarried,living together household members: significant other lives independently: Yes caregiver/support person: No housing: other (Live in in [place] in [place] pets and animals: Yes (2 dog (aware, dogs are very gentle w kids)) education level: high school (Did not finish high school. Wants to get GED. 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 She will avoid. ) alcohol intake: former (~2 drinks per week, formerly when not . None since conception. ) substance use type: marijuana (Stopped with diagnosis. ) during the past year weight has: increased > 10 lbs well-balanced diet: daily or most days daily servings fruits/ve-4 caffeine: Yes (One 12 oz breve latte daily. Aware of 200 mg precautions. ) Type(s) of exercise: walking frequency: 1-2 times per week duration: 30-45 minutes/day Smoking Status: Never smoker alcohol intake frequency: holidays/special occasions only Substance Use Type: marijuana Exam <Curt Fuentes PA-C - Last Filed: 03/02/24 16:24> Initial Vital Signs Initial Vital Signs: Vital Signs Temperature 97.3 F L 03/02/24 12:38 Pulse Rate 94 H 03/02/24 12:38 Respiratory Rate 14 03/02/24 12:38 Blood Pressure 130/86 03/02/24 12:38 Pulse Oximetry 99 03/02/24 12:38 Oxygen Delivery Method Room Air 03/02/24 12:38 Const General: cooperative, healthy appearing and comfortable HENMT Head: normal to inspection and normocephalic Ears: hearing grossly normal bilaterally and external ears normal Nose: external nose normal and nares normal Face and sinus: normal facial exam Eyes General: Yes appearance normal, both eyes and all related structures EOM: EOM intact bilaterally Neck Neck: normal visual inspection, full ROM and no meningeal signs Resp Effort & Inspection: normal respiratory effort and able to speak in complete sentences Auscultation: clear to auscultation bilaterally Cardio Rate: regular rate Rhythm: regular rhythm Heart Sounds: S1 normal and S2 normal Back/Spine/Pelvis Other: Patient has paralumbar tenderness to palpation at L4-5 with tense musculature. No palpable spasm. No direct L-spine tenderness. No step-offs. Neurovascularly distally intact. Skin General: no rashes or lesions noted, elasticity normal and turgor normal Neuro Other: +2 DTRs at the patella and Achilles bilaterally. Extrem General: normal to inspection and full ROM Psych Appearance: grossly normal and well kempt <Shelley Calvin DO - Last Filed: 03/03/24 07:45> Initial Vital Signs Initial Vital Signs: Vital Signs Temperature 97.3 F L 03/02/24 12:38 Pulse Rate 94 H 03/02/24 12:38 Respiratory Rate 14 03/02/24 12:38 Blood Pressure 130/86 03/02/24 12:38 Pulse Oximetry 99 03/02/24 12:38 Oxygen Delivery Method Room Air 03/02/24 12:38 Course <Curt Fuentes PA-C - Last Filed: 03/02/24 16:24> Course Course Narrative: Patient was seen and examined. Urinalysis revealed hematuria. Labs which included a CBC, CMP and others revealed no gross abnormalities. There was no evidence of a UTI. CT scan of the abdomen and pelvis revealed 2 small, punctate nephrolithiasis on the right without evidence of hydronephrosis. Patient was notified of the findings and she was then prepped for discharge home. Orders Ordered: Discontinued Medications Ondansetron HCl (Ondansetron 4 Mg/2 Ml Inj) 4 mg IV NOW PRN PRN Reason: Nausea And Vomiting Ondansetron HCl (Ondansetron 4 Mg Odt) 4 mg SL NOW PRN PRN Reason: Nausea And Vomiting Vital Signs Vital signs: Vital Signs - 8 hr 03/02/24 12:38 Temperature 97.3 F L Pulse Rate 94 H Respiratory Rate 14 Blood Pressure 130/86 Pulse Oximetry 99 Oxygen Delivery Method Room Air <Shelley Calvin DO - Last Filed: 03/03/24 07:45> Orders Ordered: Discontinued Medications Ondansetron HCl (Ondansetron 4 Mg/2 Ml Inj) 4 mg IV NOW PRN PRN Reason: Nausea And Vomiting Ondansetron HCl (Ondansetron 4 Mg Odt) 4 mg SL NOW PRN PRN Reason: Nausea And Vomiting Vital Signs Vital signs: Vital Signs - 8 hr 03/02/24 12:38 Temperature 97.3 F L Pulse Rate 94 H Respiratory Rate 14 Blood Pressure 130/86 Pulse Oximetry 99 Oxygen Delivery Method Room Air MDM - Back Pain/Injury <Curt Fuentes PA-C - Last Filed: 03/02/24 16:24> Differential Diagnosis Differential diagnosis: Likely lumbar radiculopathy, sciatica, strain of lumbar region, renal colic and other (Nephrolithiasis, UTI, obstructive uropathy) Medical Records Attestation: I reviewed the patient's medical records. Lab Data Attestation: I reviewed the patient's lab results. 03/02/24 13:45 03/02/24 13:45 Labs: Lab Results 03/02/24 03/02/24 Range/Units 12:49 13:45 WBC 9.2 (4.5-11.0) X10^3/uL RBC 4.72 (4.0-5.2) X10^6/uL Hgb 14.3 (12.0-16.0) g/dL Hct 42.0 (36-46) % MCV 89.0 (80-100) fL MCH 30.3 (26-34) PG MCHC 34.0 (30-36) % RDW 13.2 (11.6-14.8) % Plt Count 221 (150-400) X10^3/uL Neut % (Auto) 74.8 (50-75) % Lymph % (Auto) 18.4 L (25-40) % [place] % (Auto) 5.3 (3-14) % Eos % (Auto) 0.7 L (2-4) % Baso % (Auto) 0.8 (0-2) % Neut # (Auto) 6900 (7736-5837) /uL Lymph # (Auto) 1700 (7851-1684) /uL [place] # (Auto) 500 (0-900) /uL Eos # (Auto) 100 (0-450) /uL Baso # (Auto) 100 (0-100) /uL Sodium 136 L (137-145) mmol/L Potassium 3.7 (3.4-5.1) mmol/L Chloride 104 (98-107) mmol/L Carbon Dioxide 24 (22-32) mmol/L BUN 20 H (7-17) mg/dL Creatinine 0.90 (0.52-1.04) mg/dL Estimated GFR > 60 (>60) mL/min BUN/Creatinine Ratio 22.2 H (6-22) Glucose 132 H (70-100) mg/dL Lactate 1.5 (0.7-2.1) mmol/L Calcium 9.5 (8.4-10.2) mg/dL Total Bilirubin 0.7 (0.2-1.3) mg/dL AST 30 (14-36) IU/L ALT 34 (<35) IU/L Alkaline Phosphatase 77 (38-126) U/L Total Protein 8.1 (6.3-8.2) g/dL Albumin 4.7 (3.5-5.0) g/dL Globulin 3.4 (1.7-4.1) g/dL Albumin/Globulin Ratio 1.4 (1.0-2.8) Urine RBC 0-1/hpf (0-5/HPF) Urine WBC None seen (0-5/HPF) Ur Squamous Epith Cells 1-5 /hpf (0-5/HPF) Amorphous Sediment 3+ Urine Bacteria Occasional (0-1) (None) Ur Culture Indicated? Cult not indicated Vol Urine Centrifuged 10ml (spun) Point of Care Testing Test Results Negative Urine Dip Bedside Urine Glucose Negative Bedside Urine Bilirubin - Negative Bedside Urine Ketone - Negative Urine Specific [place] 1.030 Bedside Urine Occult Blood ++ Bedside Urine pH 5.0 Bedside Urine Protein + 30 Bedside Urine Urobilinogen - Negative Bedside Urine Nitrite - Negative Bedside Urine Leukocytes - Negative Esterase Imaging Data CT scan - abdomen/pelvis: Radiologist's Impression: 2 small nephrolithiasis that are 1-2 mm in size noted on the right. No hydronephrosis noted. MDM Narrative Medical decision making narrative: At this time, the patient has likely sustained a lumbar strain as well as 2 small kidney stones that should pass without difficulty. Patient was already prescribed 2 medications from the walk-in clinic and I will add tamsulosin to this. I do not believe the patient has obstructive uropathy, septic stone, urinary tract infection, pyelonephritis, deep space abscess, spinal abscess. Patient appears clinically stable for outpatient follow up. There are no additional questions at the time of discharge and she will follow up as requested. <Shelley Calvin, - Last Filed: 03/03/24 07:45> Lab Data Labs: Lab Results 03/02/24 03/02/24 Range/Units 12:49 13:45 WBC 9.2 (4.5-11.0) X10^3/uL RBC 4.72 (4.0-5.2) X10^6/uL Hgb 14.3 (12.0-16.0) g/dL Hct 42.0 (36-46) % MCV 89.0 (80-100) fL MCH 30.3 (26-34) PG MCHC 34.0 (30-36) % RDW 13.2 (11.6-14.8) % Plt Count 221 (150-400) X10^3/uL Neut % (Auto) 74.8 (50-75) % Lymph % (Auto) 18.4 L (25-40) % [place] % (Auto) 5.3 (3-14) % Eos % (Auto) 0.7 L (2-4) % Baso % (Auto) 0.8 (0-2) % Neut # (Auto) 6900 (6826-2986) /uL Lymph # (Auto) 1700 (3782-6970) /uL [place] # (Auto) 500 (0-900) /uL Eos # (Auto) 100 (0-450) /uL Baso # (Auto) 100 (0-100) /uL Sodium 136 L (137-145) mmol/L Potassium 3.7 (3.4-5.1) mmol/L Chloride 104 (98-107) mmol/L Carbon Dioxide 24 (22-32) mmol/L BUN 20 H (7-17) mg/dL Creatinine 0.90 (0.52-1.04) mg/dL Estimated GFR > 60 (>60) mL/min BUN/Creatinine Ratio 22.2 H (6-22) Glucose 132 H (70-100) mg/dL Lactate 1.5 (0.7-2.1) mmol/L Calcium 9.5 (8.4-10.2) mg/dL Total Bilirubin 0.7 (0.2-1.3) mg/dL AST 30 (14-36) IU/L ALT 34 (<35) IU/L Alkaline Phosphatase 77 (38-126) U/L Total Protein 8.1 (6.3-8.2) g/dL Albumin 4.7 (3.5-5.0) g/dL Globulin 3.4 (1.7-4.1) g/dL Albumin/Globulin Ratio 1.4 (1.0-2.8) Urine RBC 0-1/hpf (0-5/HPF) Urine WBC None seen (0-5/HPF) Ur Squamous Epith Cells 1-5 /hpf (0-5/HPF) Amorphous Sediment 3+ Urine Bacteria Occasional (0-1) (None) Ur Culture Indicated? Cult not indicated Vol Urine Centrifuged 10ml (spun) Point of Care Testing Test Results Negative Urine Dip Bedside Urine Glucose Negative Bedside Urine Bilirubin - Negative Bedside Urine Ketone - Negative Urine Specific [place] 1.030 Bedside Urine Occult Blood ++ Bedside Urine pH 5.0 Bedside Urine Protein + 30 Bedside Urine Urobilinogen - Negative Bedside Urine Nitrite - Negative Bedside Urine Leukocytes - Negative Esterase Discharge Plan Departure Patient Disposition: Home Clinical Impression: Nephrolithiasis Low back pain Qualifiers: Chronicity: acute Back pain laterality: unspecified Sciatica presence: without sciatica Qualified Code(s): M54.50 - Low back pain, unspecified Instructions: DI for Kidney Stones, DI for Low Back Pain Activity Restrictions/Additional Instructions: Increase clear fluid intake Start the medications today as prescribed You have likely sustained a low back strain as well as 2 small kidney stones that will pass on their own Follow up your PCP this week as a recheck Return here for any new, emergent concerns or if you should worsen any way Prescriptions: New tamsulosin [Flomax] 0.4 mg capsule 0.4 mg PO DAILY Qty: 7 0RF No Action sertraline 25 mg tablet 25 mg PO DAILY Qty: 30 0RF Rx Instructions: Start with 25 mg per day x7 days then increase to 50 mg (2 tabs) mupirocin 2 % ointment 1 applic topical DAILY Qty: 15 0RF Rx Instructions: Apply to affected skin for 7-14 days. Referrals: Azucena Estrada MD [Primary Care Provider] - Stand Alone Forms: Patient Portal/API ED Sign-out <Shelley Calvin DO - Last Filed: 03/03/24 07:45> Cosign ED Attending [employer] Attestation: I was available for consultation.
[2024-03-02 16:04] VITALS: BP 138/86; PULSE 61; RESP 16; TEMP 36.9; O2SAT 98
== END 2024-03-02 16:05 | disposition home or self-care (01) ==
PROVIDERS: Emergency Provider Physician Assistant; PCP Family Medicine
DX: N20.0 Calculus of kidney (principal); M54.50 Low back pain, unspecified
CPT/HCPCS: 74176; 80053; 81003; 81015; 81025; 83605; 85025; 99282; 99284

== ENCOUNTER 2024-03-05 11:00 | Emergency (ER) | payer SELFPAY ==
[2024-03-05] VITALS (16 sets, daily range): BP systolic 125–162; BP diastolic 78–93; PULSE 52–72; RESP 16–18; TEMP 36.2; O2SAT 96–100; BMI 36.5
--- NOTE | 2024-03-05 11:54 | PC.NURSE ---
patient was seen here recently and treated for kydney stones. She returns with same symptoms that have not gotten better. She thinks that she is having back pain in her spine. She has tried to take flexeril and a hydrocodone at home with no relief. She has not been able to find any stones in her urine by basket catch.
[2024-03-05 12:03] LABS: Urine Volume 10mL (spun)
[2024-03-05 12:04] LABS: Bacteria Urine None Seen; Culture Indicated Urine Cult Not Indicated; RBC Urine None Seen (0-5/HPF); Squamous Epithelial Cell Urine None Seen (0-5/HPF); WBC Urine None Seen (0-5/HPF)
--- NOTE | 2024-03-05 12:16 | PC.NURSE ---
update: patient states that she is here for left sided pain that radiates down to her hip after feeling like she threw her back out on Sunday. She denies worsening pain in her right side. She is uncomfortable and sitting in her chair because she is unable to find a position that relieves her pain.
[2024-03-05 12:21] LABS: Add Manual Diff / Slide Review NO; Basophils Absolute Auto 100 /uL (0-100); Basophils Percent Auto 1.2 % (0-2); Eosinophils Absolute Auto 200 /uL (0-450); Hemoglobin 14.2 g/dL (12.0-16.0); Lymphocytes Absolute Auto 1800 /uL (1100-4500); Lymphocytes Percent Auto 21.4 % (25-40); Mean Corpuscular HGB Conc 33.8 % (30-36); Mean Corpuscular Hemoglobin 30.3 PG (26-34); Mean Corpuscular Volume 89.7 fL (80-100); Monocytes Absolute Auto 700 /uL (0-900); Monocytes Percent Auto 8.6 % (3-14); Neutrophils Absolute Auto 5700 /uL (1500-7000); Neutrophils Percent Auto 66.8 % (50-75); Platelet Count 211 X10^3/uL (150-400); Red Blood Cell Count 4.69 X10^6/uL (4.0-5.2); Red Cell Distribution Width 13.3 % (11.6-14.8); White Blood Cell Count 8.5 X10^3/uL (4.5-11.0)
[2024-03-05 12:23] LABS: Alanine Aminotransferase 30 IU/L (<35); Albumin 4.5 g/dL (3.5-5.0); Albumin Globulin Ratio 1.2 (1.0-2.8); Alkaline Phosphatase 69 U/L (38-126); Aspartate Aminotransferase 40 IU/L (14-36); BUN Creatinine Ratio 26.6 (6-22); Bilirubin Total 0.6 mg/dL (0.2-1.3); Blood Urea Nitrogen 21 mg/dL (7-17); Calcium 9.4 mg/dL (8.4-10.2); Carbon Dioxide 28 mmol/L (22-32); Chloride 101 mmol/L (98-107); Estimated Glomerular Filt Rate > 60 mL/min (>60); Globulin 3.8 g/dL (1.7-4.1); Glucose 89 mg/dL (70-100); HEMOLYSIS 40 (0-50); Potassium 3.9 mmol/L (3.4-5.1); Sodium 134 mmol/L (137-145); Total Protein 8.3 g/dL (6.3-8.2)
[2024-03-05] MEDS: KETOROLAC 30 MG/ML VIAL 15 MG IV (12:26)
--- NOTE | 2024-03-05 12:36 | ED_ITS ---
HPI - Abdominal Pain General Chief Complaint: Urogenital-Female Stated Complaint: Kidney Stones, Lower back pain Time Seen by Provider: 03/05/24 12:36 Source: patient Mode of arrival: Ambulatory History of Present Illness HPI narrative: 33-year-old female with ongoing left lower back pain, after reaching and pulling for something on Sunday 4 days ago, was seen at [facility] on Sunday the next day, clinical diagnosis of muscular strain per patient, then was seen here in the emergency department also Sunday later that day, recalls CT scanning, showing nonobstructing right kidney stones, was discharged on Flexeril muscle relaxant. She has ongoing pain despite muscle relaxant. No numbness or tingling to the legs. Worse pain with movement or bending. No incontinence of urine or stool. No prior back surgeries. No fevers or chills. No painful urination or frequency of urination. Related Data Previous Rx's Medication Instructions Recorded mupirocin 2 % topical ointment 1 applic topical DAILY #15 grams 09/20/23 sertraline 25 mg tablet 25 mg PO DAILY #30 tabs 09/20/23 tamsulosin 0.4 mg capsule (Flomax) 0.4 mg PO DAILY #7 caps 03/02/24 hydrocodone 5 mg-acetaminophen 325 1 tab PO Q6H PRN pain #14 tabs 03/05/24 mg tablet naproxen 500 mg tablet 500 mg PO BID 7 days #14 tabs 03/05/24 Allergies Allergy/AdvReac Type Severity Reaction Status Date / Time warfarin Allergy Mild Factor V Verified 10/03/23 14:58 Review of Systems Review of Systems Narrative: see HPI Patient History Medical History Factor 5 Leiden mutation, heterozygous Gestational hypertension Bilateral carpal tunnel syndrome Hypercholesteremia (~01/2020) Tailbone injury (~1999) Bronchitis (~1999) Pneumonia (~1999) Asthma (~1997) Hypertension (~01/2020) Tibia fracture (~2017) Stye Depression (11/16/15) Anxiety (11/16/15) Right knee sprain Acute headache Vasovagal reaction (~2016) Whiplash injuries Hemoptysis Family History Brother Age: 26 Bipolar affective disorder, remission status unspecified Father Age: 60 Type 2 diabetes mellitus without complication, unspecified senior care insulin use status Heart disease Essential hypertension Hyperlipidemia Cancer Myocardial infarction High threshold of implanted defibrillator Grandmother Cancer Smoker Mental health problem Mother Age: 58 Mental health problem Hypothyroid PTSD (post-traumatic stress disorder) Factor V deficiency, congenital Grandmother Type 2 diabetes mellitus without complication, unspecified 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 insulin use status Mental health problem Sister Age: 35 Bipolar affective disorder, remission status unspecified Heart murmur Congenital heart defect Factor V deficiency, congenital Sister Age: 29 Adrenal gland disorder Hypothyroid Congenital adrenal hyperplasia PCOS (polycystic ovarian syndrome) Migraines Grandfather Cancer Smoker Grandfather Myocardial infarction Family/Other Schizophrenia Family estrangement Social History marital status: unmarried,living together household members: significant other lives independently: Yes caregiver/support person: No housing: other (Live in in [place] in [place].) pets and animals: Yes (2 dog (aware, dogs are very gentle w kids)) education level: high school (Did not finish high school. Wants to get GED. 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 She will avoid. ) alcohol intake: former (~2 drinks per week, formerly when not . None since conception. ) substance use type: marijuana (Stopped with diagnosis. ) during the past year weight has: increased > 10 lbs well-balanced diet: daily or most days daily servings fruits/ve-4 caffeine: Yes (One 12 oz breve latte daily. Aware of 200 mg precautions. ) Type(s) of exercise: walking frequency: 1-2 times per week duration: 30-45 minutes/day Smoking Status: Never smoker alcohol intake frequency: holidays/special occasions only Substance Use Type: marijuana Exam Narrative Exam Narrative: GENERAL: Well-developed patient, in mild distress. HEAD: Atraumatic. Normocephalic. EYES: Pupils equal round and reactive. Extraocular motions intact. No scleral icterus. No injection or drainage. ENT: Nose without bleeding, purulent drainage. Throat without erythema, tonsillar hypertrophy or exudate. Airway patent. NECK: Trachea midline. Non tender CARDIOVASCULAR: Regular rate and rhythm without murmurs, gallops, or rubs. RESPIRATORY: Clear to auscultation. Breath sounds equal bilaterally. No wheezes, rales, or rhonchi. GASTROINTESTINAL: Abdomen soft, non-tender, nondistended. EXTREMITIES: No edema or joint tenderness. BACK: Nontender without deformity or crepitance. No flank tenderness. Some tenderness low lumbar left paraspinal musculature. No skin changes or rashes. NEURO: AOx3. Motor functions grossly nonfocal. SLR raise 45 degrees left with back pain symptoms without buttock or leg or foreleg pain, SLR raise 60 degrees without back or leg pain symptoms SKIN: No rash or erythema of visible areas Initial Vital Signs Initial Vital Signs: Vital Signs Temperature 97.1 F L 03/05/24 11:11 Pulse Rate 71 03/05/24 11:11 Respiratory Rate 18 03/05/24 11:11 Blood Pressure 138/84 03/05/24 11:11 Pulse Oximetry 99 03/05/24 11:11 Oxygen Delivery Method Room Air 03/05/24 11:11 Course Orders Ordered: Discontinued Medications Diazepam (Diazepam 10 Mg/2 Ml Syringe) 5 mg IV NOW ONE Stop: 03/05/24 12:53 Last Admin: 03/05/24 12:56 Dose: 5 mg Documented By: SOLO Hydromorphone HCl (Hydromorphone 1 Mg Inj) 0.5 mg IV NOW ONE Stop: 03/05/24 12:53 Last Admin: 03/05/24 12:56 Dose: 0.5 mg Documented By: SOLO Ketorolac Tromethamine (Ketorolac 30 Mg/Ml Vial) 15 mg IV NOW ONE Stop: 03/05/24 12:13 Last Admin: 03/05/24 12:26 Dose: 15 mg Documented By: SOLO Ondansetron HCl (Ondansetron 4 Mg/2 Ml Inj) 4 mg IV NOW PRN PRN Reason: Nausea And Vomiting Ondansetron HCl (Ondansetron 4 Mg Odt) 4 mg PO NOW PRN PRN Reason: Nausea And Vomiting Vital Signs Vital signs: Vital Signs - 8 hr 03/05/24 13:30 03/05/24 13:30 03/05/24 13:45 Pulse Rate 54 L 58 L Respiratory Rate Blood Pressure 135/91 H Pulse Oximetry 96 100 03/05/24 13:45 03/05/24 14:00 03/05/24 14:00 Pulse Rate 63 Respiratory Rate Blood Pressure 143/93 H 145/88 H Pulse Oximetry 100 03/05/24 14:30 03/05/24 14:30 03/05/24 15:00 Pulse Rate 52 L 56 L Respiratory Rate Blood Pressure 125/78 Pulse Oximetry 96 100 03/05/24 15:01 03/05/24 15:01 03/05/24 15:30 Pulse Rate 59 L 60 Respiratory Rate Blood Pressure 150/93 H Pulse Oximetry 99 99 03/05/24 15:31 03/05/24 15:31 03/05/24 16:00 Pulse Rate 60 72 Respiratory Rate 16 Blood Pressure 162/93 H Pulse Oximetry 98 99 03/05/24 16:03 03/05/24 16:04 Pulse Rate 70 Respiratory Rate Blood Pressure 160/89 H Pulse Oximetry 100 MDM - Abdominal Pain Lab Data Attestation: I reviewed the patient's lab results. 03/05/24 11:49 03/05/24 11:49 Labs: Lab Results 03/05/24 03/05/24 Range/Units 11:33 11:49 WBC 8.5 (4.5-11.0) X10^3/uL RBC 4.69 (4.0-5.2) X10^6/uL Hgb 14.2 (12.0-16.0) g/dL Hct 42.0 (36-46) % MCV 89.7 (80-100) fL MCH 30.3 (26-34) PG MCHC 33.8 (30-36) % RDW 13.3 (11.6-14.8) % Plt Count 211 (150-400) X10^3/uL Neut % (Auto) 66.8 (50-75) % Lymph % (Auto) 21.4 L (25-40) % [place] % (Auto) 8.6 (3-14) % Eos % (Auto) 2.0 (2-4) % Baso % (Auto) 1.2 (0-2) % Neut # (Auto) 5700 (5691-5100) /uL Lymph # (Auto) 1800 (0110-3525) /uL [place] # (Auto) 700 (0-900) /uL Eos # (Auto) 200 (0-450) /uL Baso # (Auto) 100 (0-100) /uL Sodium 134 L (137-145) mmol/L Potassium 3.9 (3.4-5.1) mmol/L Chloride 101 (98-107) mmol/L Carbon Dioxide 28 (22-32) mmol/L BUN 21 H (7-17) mg/dL Creatinine 0.79 (0.52-1.04) mg/dL Estimated GFR > 60 (>60) mL/min BUN/Creatinine Ratio 26.6 H (6-22) Glucose 89 (70-100) mg/dL Calcium 9.4 (8.4-10.2) mg/dL Total Bilirubin 0.6 (0.2-1.3) mg/dL AST 40 H (14-36) IU/L ALT 30 (<35) IU/L Alkaline Phosphatase 69 (38-126) U/L Total Protein 8.3 H (6.3-8.2) g/dL Albumin 4.5 (3.5-5.0) g/dL Globulin 3.8 (1.7-4.1) g/dL Albumin/Globulin Ratio 1.2 (1.0-2.8) Urine RBC None seen (0-5/HPF) Urine WBC None seen (0-5/HPF) Ur Squamous Epith Cells None seen (0-5/HPF) Urine Bacteria None seen (None) Ur Culture Indicated? Cult not indicated Vol Urine Centrifuged 10ml (spun) Point of care testing: Point of Care Testing Test Results Negative Urine Dip Bedside Urine Glucose Negative Bedside Urine Bilirubin - Negative Bedside Urine Ketone - Negative Urine Specific [place] 1.025 Bedside Urine Occult Blood - Negative Bedside Urine pH 5.5 Bedside Urine Protein - Negative Bedside Urine Urobilinogen - Negative Bedside Urine Nitrite - Negative Bedside Urine Leukocytes - Negative Esterase MDM Narrative Medical decision making narrative: 33-year-old female with left lower back pain, felt to be musculoskeletal had urgent care evaluation, reports recent visit here CT scanning showed a nonobstructing stones, unclear if there is same side or opposite side, discharged on Flexeril, not helping. Uncomfortable appearing. IV Toradol. Labs pending. White blood cell count unremarkable, CMP unremarkable, urine test negative. Urinalysis negative. Patient is still quite uncomfortable, has ride home, will add IV Dilaudid analgesic, IV Valium muscle relaxant Medical records review, ED visit here 03/02/2024, noting previous evaluation clinic setting, CT imaging showed right-sided tiny nonobstructing stones kidney, no left-sided lesions noted on her symptomatic side, clinical diagnosis left lumbar strain, and likely incidental right-sided kidney stones. Improved symptoms. Rx sent for [place], continue use of Flexeril. Recheck with PCP next days, return precautions discussed Discharge Plan Departure Patient Disposition: Home Clinical Impression: Lumbar back pain Activity Restrictions/Additional Instructions: Left lower back pain, recent imaging showed unrelated right-sided kidney stones that may or may not pass, did not by anatomic position seemed to be related to current back pain problems. Pain not responsive to ibuprofen thus far, nor to cyclobenzaprine. IV Valium muscle relaxant given, with IV Dilaudid. Symptoms improved. Screening studies unremarkable today. Consider use of more potent pain medication hydrocodone to use if needed, consider naproxen in place of ibuprofen which is not any better but disease here to take twice daily then 3-4 times daily. Recheck symptoms with your regular doctor in the next couple of days. Return to this/nearest emergency department for any change worsening symptoms or any concerns prior Prescriptions: New naproxen 500 mg tablet 500 mg PO BID 7 Days Qty: 14 0RF hydrocodone-acetaminophen 5-325 mg tablet 1 tab PO Q6H PRN (Reason: pain) Qty: 14 0RF No Action sertraline 25 mg tablet 25 mg PO DAILY Qty: 30 0RF Rx Instructions: Start with 25 mg per day x7 days then increase to 50 mg (2 tabs) mupirocin 2 % ointment 1 applic topical DAILY Qty: 15 0RF Rx Instructions: Apply to affected skin for 7-14 days. tamsulosin [Flomax] 0.4 mg capsule 0.4 mg PO DAILY Qty: 7 0RF Referrals: Azucena Estrada MD [Primary Care Provider] - Stand Alone Forms: Patient Portal/API
[2024-03-05] MEDS: HYDROMORPHONE 1 MG INJ 0.5 MG IV (12:56)
[2024-03-05] MEDS: diazePAM 10 MG/2 ML SYRINGE 5 MG IV (12:56)
== END 2024-03-05 16:44 | disposition home or self-care (01) ==
PROVIDERS: Emergency Provider Emergency Medicine; PCP Family Medicine
DX: M54.50 Low back pain, unspecified (principal)
CPT/HCPCS: 36415; 80053; 81003; 81015; 81025; 85025; 87086; 96374; 96375; 99284; J1171; J1885; J3360